=== PATIENT | female | born 1945 | race Caucasian/White ===

== ENCOUNTER → 2016-03-27 | Outpatient (CLI) | payer OTHER ==
[~2016-03-27] MED LIST: ACET-1311 PO; ALBU18002 INH; ALBU1AER9 INH; ATOR-22 PO; ATOR-24 PO; AZEL1POW NAE; CLON0.3D5 TOP; CLON1TAB3 PO; CLOP1TAB15 PO; CRDCD/180 PO; CYAN500T PO; DEXL60CA4 PO; DILT180C9 PO; FLUT0.0529 NAE; FLUT0.15 NAE; GABA-112 PO; GABA-113 PO; GABAPENTIN 600 MG PO; HYDR25TA4 PO; HYDR25TA5 PO; INSDGI SC; INSDGIPEN SC; IPRA0.06 NAE; IPRA1AER2 INH; LISI40TA PO; LPT40 PO; LSN40 PO; MAGN1TAB15 PO; MONT1TAB3 PO; NAPR-201 PO; NEBI10TA2 PO; NRN800 PO; NRT/25 PO; NRT25 PO; NVLGI SC; NVLGI/PEN SC; NYSTCRE11; OMEG10002 PO; PLV75 PO; PRAM0.129 PO; PROM25TA16 PO; ROPI0.25 PO; ROPI0.5T PO; SERT25TA PO; SNG10 PO; SYMIN160 INH; TRAM-10 PO; ULT50 PO; ZLF/50 PO
--- NOTE | 2016-03-27 12:48 | DIAGNOSTIC IMAGING REPORT ---
CHEST 2 VIEWS ROUTINE CLINICAL HISTORY: Cough COMPARISON STUDY: 09/21/2014 FINDINGS: The cardiac and mediastinal contours are normal. There is no evidence of focal pulmonary consolidation. There is no evidence of failure. No pleural effusions are visualized.[ There is tapering of distal right clavicle, likely postsurgical or related to prior trauma. This remain stable. IMPRESSION: No active disease in the chest. Electronically signed by: Abdirashid Benson M.D. 03/27/2016 12:46 PM Dictated Date/Time: 03/27/2016 12:45 PM
== END | disposition home or self-care (01) ==
LOC: C.RAD1850 12:15
PROVIDERS: ATTEND Nurse Practitioner Adult Health
DX: R05 Cough (principal)

== ENCOUNTER → 2016-04-16 | Day surgery (SDC) | payer OTHER ==
[2016-04-08 10:24] VITALS: BMI 34.0
[~2016-04-16] VITALS: Ht 149.9 cm; Wt 75.9 kg
[~2016-04-16] MED LIST changes: +BOTULINUM TOXIN TYPE A 100 UNIT VIAL IM ONE; +LIDOCAINE HCL 2% 2 ML VIAL (20MG/ML) ONE; +PROPOFOL IV EMULSION 10 MG/ML 20 ML VIAL IV ONE; +SODIUM CHLORIDE 0.9% 500ML 500 ML IV ONE
[2016-04-16 08:44] VITALS: Ht 149.9 cm; Wt 75.9 kg
[2016-04-16 08:49] VITALS: TEMP 37.3
--- NOTE | 2016-04-16 08:58 | Endo History and Physical ---
History & Physical Date of Service: Apr 16, 2016. Chief Complaint: DYSPHAGIA Referring Physician: DR. OCAMPO History of Present Illness 70 yo CF who presents for EGD secondary to dysphagia. Past Medical History Diabetes, Glaucoma, Reflux, Cancer, High Cholesterol, Hypertension, CVA/TIA Past Surgical History Hx Cardiac Surgery: No Hx Internal Defibrillator: No Hx Pacemaker: No Hx Abdominal Surgery: Yes (LAP HUDOSN, , TUBAL LIGATION) Hx of Implantable Prosthesis: No Hx Post-Op Nausea and Vomiting: No Hx Cancer Surgery: Yes (TAHBSO) Hx Thoracic Surgery: No Hx Orthopedic: Yes (RT/LEFT RCR) Hx Urinary Tract Surgery: No Social History Smoking Status: Former Smoker Hx Substance Use: No Hx Alcohol Use: No Allergies Coded Allergies: Ceftriaxone (Verified Allergy, Unknown, PARESTHESIA, 04/16/16) ALLSCRIPTS Amoxicillin (Verified Adverse Reaction, Mild, GI DISTRESS, 04/16/16) ALLSCRIPTS Aspirin (Verified Adverse Reaction, Mild, STOMACH MAY GET UPSET, 04/16/16) Clavulanic Acid (Verified Adverse Reaction, Mild, GI DISTRESS, 04/16/16) ALLSCRIPTS Codeine (Verified Adverse Reaction, Mild, INTOLERANCE, 04/08/16) Uncoded Allergies: STERIODS (Allergy, Severe, RIGHT SIDED PARALYSIS, 07/27/12) Current Medications Reported Home Medications Medications Dose Route/Sig Max Daily Dose Days Date Category Dose Instructions Novolog (Insulin Aspart) Inj 5 Units SC TID 10/18/14 Reported Promethazine HCl 25 Mg Tab 25 Mg PO DAILY PRN 06/25/14 Reported Ipratropium [place] (Ipratropium [place] (Nasal)) 0.06 % Spr 2 Sprays REFUGIO UD 06/25/14 Reported USE 2 SPRAYS IN EACH NOSTRIL 2-3 TIMES DAILY ONLY NEEDED Flonase (Fluticasone Propionate (Nasal)) 50 Mcg/Act Spr 1 [place] REFUGIO BID 06/25/14 Reported Klonopin (Clonazepam) 1 Mg Tab 1 Mg PO HS 06/25/14 Reported Bystolic (Nebivolol Hcl) 10 Mg Tab 10 Mg PO QAM 06/25/14 Reported Azelastine HCl (Azelastine HCl (Bulk)) 1 Pow Pow 2 Sprays REFUGIO QPM 06/25/14 Reported Lipitor (Atorvastatin Calcium) 20 Mg Tab 20 Mg PO HS 06/25/14 Reported Clonidine Hcl 0.3 Mg/24 Hr Dis 0.3 Mg TD WK 06/25/14 Reported Lantus (Insulin Glargine) Vial 18 Units SC QPM 02/10/14 Reported Naprosyn (Naproxen) 375 Mg Tab 375 Mg PO Q12 08/30/13 Reported Neurontin (Gabapentin) 300 Mg Cap 600 Mg PO TID 08/30/13 Reported Nortriptyline HCl 25 Mg Cap 25 Mg PO HS 05/19/13 Reported Dexilant (Dexlansoprazole) 60 Mg Cap 60 Mg PO QAM 02/11/13 Reported 1/2 HR PRIOR TO BREAKFAST Plavix (Clopidogrel Bisulfate) 75 Mg Tab 75 Mg PO QAM 10/01/12 Reported Zoloft (Sertraline HCl) 25 Mg Tab 25 Mg PO QAM 05/22/12 Reported Cardizem Cd (Diltiazem Hcl Coated Beads) 180 Mg Cap 180 Mg PO BID 03/13/12 Reported Singulair (Montelukast Sodium) 10 Mg Tab 10 Mg PO HS 01/19/12 Reported Vital Signs Weight (Kilograms): 75.91 Height (Feet): 4 Height (Inches): 11 Date Time Temp Pulse Resp B/P Pulse Ox O2 Delivery O2 Flow Rate FiO2 04/16/16 08:49 37.3 88 18 140/70 95 Room Air Physical Exam General Appearance: WD/WN, no apparent distress Respiratory/Chest: Auscultation: breath sounds normal Cardiovascular: Heart Auscultation: RRR Abdomen: Bowel Sounds: normal Inspection & Palpation: soft, non-distended, no tenderness, guarding & rebound Assessment and Plan Assessment: 70 yo CF who presents for EGD secondary to dysphagia. Plan: Proceed with EGD.
--- NOTE | 2016-04-16 09:29 | Discharge Instructions ---
Endoscopy Patient Instructions Date / Procedure(s) Performed Apr 16, 2016. EGD Allergy Information Coded Allergies: Ceftriaxone (Verified Allergy, Unknown, PARESTHESIA, 04/16/16) ALLSCRIPTS Amoxicillin (Verified Adverse Reaction, Mild, GI DISTRESS, 04/16/16) ALLSCRIPTS Aspirin (Verified Adverse Reaction, Mild, STOMACH MAY GET UPSET, 04/16/16) Clavulanic Acid (Verified Adverse Reaction, Mild, GI DISTRESS, 04/16/16) ALLSCRIPTS Codeine (Verified Adverse Reaction, Mild, INTOLERANCE, 04/08/16) Uncoded Allergies: STERIODS (Allergy, Severe, RIGHT SIDED PARALYSIS, 07/27/12) Discharge Date / Findings Apr 16, 2016. Successful injection of Botox to lower esophageal sphincter Medication Instructions Stopped Medication(s): PATIENT INSTRUCTED TO STOP PLAVIX 6 DAYS PRIOR TO PROCEDURE. OK to resume all medications today as prescribed. Reported Home Medications Medications Dose Route/Sig Max Daily Dose Days Date Category Dose Instructions Novolog (Insulin Aspart) Inj 5 Units SC TID 10/18/14 Reported Promethazine HCl 25 Mg Tab 25 Mg PO DAILY PRN 06/25/14 Reported Ipratropium [place] (Ipratropium [place] (Nasal)) 0.06 % Spr 2 Sprays REFUGIO UD 06/25/14 Reported USE 2 SPRAYS IN EACH NOSTRIL 2-3 TIMES DAILY ONLY NEEDED Flonase (Fluticasone Propionate (Nasal)) 50 Mcg/Act Spr 1 [place] REFUGIO BID 06/25/14 Reported Klonopin (Clonazepam) 1 Mg Tab 1 Mg PO HS 06/25/14 Reported Bystolic (Nebivolol Hcl) 10 Mg Tab 10 Mg PO QAM 06/25/14 Reported Azelastine HCl (Azelastine HCl (Bulk)) 1 Pow Pow 2 Sprays REFUGIO QPM 06/25/14 Reported Lipitor (Atorvastatin Calcium) 20 Mg Tab 20 Mg PO HS 06/25/14 Reported Clonidine Hcl 0.3 Mg/24 Hr Dis 0.3 Mg TD WK 06/25/14 Reported Lantus (Insulin Glargine) Vial 18 Units SC QPM 02/10/14 Reported Naprosyn (Naproxen) 375 Mg Tab 375 Mg PO Q12 08/30/13 Reported Neurontin (Gabapentin) 300 Mg Cap 600 Mg PO TID 08/30/13 Reported Nortriptyline HCl 25 Mg Cap 25 Mg PO HS 05/19/13 Reported Dexilant (Dexlansoprazole) 60 Mg Cap 60 Mg PO QAM 02/11/13 Reported 1/2 HR PRIOR TO BREAKFAST Plavix (Clopidogrel Bisulfate) 75 Mg Tab 75 Mg PO QAM 10/01/12 Reported Zoloft (Sertraline HCl) 25 Mg Tab 25 Mg PO QAM 05/22/12 Reported Cardizem Cd (Diltiazem Hcl Coated Beads) 180 Mg Cap 180 Mg PO BID 03/13/12 Reported Singulair (Montelukast Sodium) 10 Mg Tab 10 Mg PO HS 01/19/12 Reported Provider Instructions Activity Restrictions - No exercising or heavy lifting for 24 hours. - Do not drink alcohol the day of the procedure. - Do not drive a car or operate machinery until the day after the procedure. - Do not make any important decisions or sign important papers in 24 hours after the procedure. Following Day: - Return to full activity which may include returning to work/school. Diet Start your diet with liquids and light foods (jello, soup, juice, toast). Then eat your usual diet if not nauseated. Treatment For Common After Affects For mild abdominal pain, bloating, or excessive gas: - Rest - Eat lightly - Lie on right side Follow-Up Information Follow-up with DR. OCAMPO as scheduled Anesthesia Information What You Should Know You have had a procedure that required some medicine to reduce anxiety and discomfort. This treatment is called moderate sedation. After receiving the treatment, you may be sleepy, but you will be able to breathe on your own. The effects of the treatment may last for several hours. Follow these instructions along with Activity/Diet recommendations noted above: * Do NOT do anything where dizziness or clumsiness would be dangerous. * Rest quietly at home today, then you can be up and about tomorrow. * Have a responsible person stay with you the rest of today. * You may have had an I.V. today. If so, you may take the dressing off later today. Recommendations Call your doctor if: * Trouble breathing * Continuous vomiting for more than 24 hours * Temperature above 101 degrees * Severe abdominal pain or bloating * Pain not relieved by pain medicine ordered * There is increased drainage or redness from any incision * A large amount of rectal bleeding greater than 2-3 tablespoons. (If you had a polyp/s removed or have hemorrhoids, a small amount of blood - from the rectum is to be expected.) * You have any unanswered questions or concerns. IN THE EVENT OF A SERIOUS EMERGENCY, GO TO THE NEAREST EMERGENCY ROOM Your discharge instructions were prepared by provider Christopher Leonardo. Patient Instructions Signature Page Becky Mccabe Patient (or Guardian) Signature/Date: I have read and understand the instructions given to me by my caregivers. Caregiver/RN/Doctor Signature/Date: The above-named patient and/or guardian has received patient instructions on this date. + Original Patient Signature Page (only) stays with chart. Please make copy for patient.
[2016-04-16 10:02] VITALS: BP 140/75; PULSE 71; O2SAT 95
--- NOTE | 2016-04-16 10:53 | GI REPORT ---
Procedure Date: 04/16/2016 9:04 AM Procedure: Upper GI endoscopy Indications: Dysphagia Medicines: Monitored Anesthesia Care Complications: No immediate complications. Estimated Blood Loss: Estimated blood loss: none. Procedure: Pre-Anesthesia Assessment: - Prior to the procedure, a History and Physical was performed, and patient medications and allergies were reviewed. The patient's tolerance of previous anesthesia was also reviewed. The risks and benefits of the procedure and the sedation options and risks were discussed with the patient. All questions were answered, and informed consent was obtained. Prior Anticoagulants: The patient has taken Plavix (clopidogrel), last dose was 7 days prior to procedure. ASA Grade Assessment: III - A patient with severe systemic disease. After reviewing the risks and benefits, the patient was deemed in satisfactory condition to undergo the procedure. After obtaining informed consent, the endoscope was passed under direct vision. Throughout the procedure, the patient's blood pressure, pulse, and oxygen saturations were monitored continuously. The Scope was introduced through the mouth, and advanced to the second part of duodenum. The upper GI endoscopy was accomplished without difficulty. The patient tolerated the procedure well. Findings: No endoscopic abnormality was evident in the esophagus to explain the patient's complaint of dysphagia. Area was successfully injected with 100 units botulinum toxin. The stomach was normal. The examined duodenum was normal. Impression: - No endoscopic esophageal abnormality to explain patient's dysphagia. Injected with botulinum toxin. - Normal stomach. - Normal examined duodenum. - No specimens collected. Recommendation: - Resume previous diet. - Continue present medications. - Repeat the upper endoscopy PRN for retreatment. - Return to primary care physician as previously scheduled. Christopher Leonardo, DO 04/16/2016 9:28:19 AM This report has been signed electronically. Note Initiated On: 04/16/2016 9:04 AM I attest to the content of the Intraoperative Record and orders documented therein, exceptions below
--- NOTE | 2016-04-16 11:12 | Anesthesiology Progress Note ---
Anesthesia Post Op Note Date & Time Apr 16, 2016 at 11:12 Vital Signs Pain Intensity: 0 Vital Signs Past 12 Hours Date Time Temp Pulse Resp B/P Pulse Ox O2 Delivery O2 Flow Rate FiO2 04/16/16 10:02 71 18 140/75 95 Room Air 04/16/16 09:43 72 18 125/79 96 Room Air 04/16/16 09:27 86 18 98/71 95 Room Air 04/16/16 08:49 37.3 88 18 140/70 95 Room Air Notes Mental Status: alert / awake / arousable, participated in evaluation Pt Amnestic to Procedure: Yes Nausea / Vomiting: adequately controlled Pain: adequately controlled Airway Patency, RR, SpO2: stable & adequate BP & HR: stable & adequate Hydration State: stable & adequate Anesthetic Complications: no major complications apparent
== END | disposition home or self-care (01) ==
LOC: C.GI 08:23
PROVIDERS: ATTEND Internal Medicine
DX: R13.10 Dysphagia, unspecified (principal); K21.9 Gastro-esophageal reflux disease without esophagitis; E11.9 Type 2 diabetes mellitus without complications; E78.5 Hyperlipidemia, unspecified; I10 Essential (primary) hypertension; Z87.891 Personal history of nicotine dependence; H40.89 Other specified glaucoma; Z88.8 Allergy status to other drugs, medicaments and biological substances; Z79.4 Long term (current) use of insulin; Z86.73 Personal history of transient ischemic attack (TIA), and cerebral infarction without residual deficits; Z98.890 Other specified postprocedural states; Z98.51 Tubal ligation status; Z88.1 Allergy status to other antibiotic agents; Z88.5 Allergy status to narcotic agent

== ENCOUNTER → 2016-05-29 | Outpatient (CLI) | payer OTHER ==
[~2016-05-29] MED LIST changes: -BOTULINUM TOXIN TYPE A 100 UNIT VIAL IM ONE; -LIDOCAINE HCL 2% 2 ML VIAL (20MG/ML) ONE; +OPTIRAY 320 IV PRN; -PROPOFOL IV EMULSION 10 MG/ML 20 ML VIAL IV ONE; -SODIUM CHLORIDE 0.9% 500ML 500 ML IV ONE
--- NOTE | 2016-05-29 10:28 | DIAGNOSTIC IMAGING REPORT ---
CT ANGIOGRAPHY NECK COMBO CT DOSE: 1072.41 mGy.cm CLINICAL HISTORY: History of stroke symptoms. History of bilateral atheromatous plaque. TECHNIQUE: Helical images were obtained before and after the administration of 92 cc Optiray 320. MIP imaging was performed. NASCET criteria was utilized. COMPARISON STUDY: Carotid Doppler ultrasound dated 08/12/2012 FINDINGS: There is no evidence of vertebral artery stenosis or dissection. There are mild atheromatous changes involving the left proximal internal carotid artery. These resulting in a 25% stenosis. There is extensive atheromatous plaque at the level the right carotid bulb. This results in a 60% stenosis of the right internal carotid artery origin. There are advanced multilevel degenerative changes in the cervical spine with multilevel posterior osteophyte formation. IMPRESSION: 1. Bilateral atheromatous changes 2. 60% stenosis of the right internal carotid artery origin 3. No evidence of vertebral artery stenosis 4. No evidence of hemodynamically significant left internal carotid artery stenosis Electronically signed by: Abdirashid Benson M.D. 05/29/2016 10:26 AM Dictated Date/Time: 05/29/2016 10:15 AM
== END | disposition home or self-care (01) ==
LOC: C.CTS 09:22
PROVIDERS: ATTEND Surgery Vascular Surgery
DX: I65.29 Occlusion and stenosis of unspecified carotid artery (principal)

== ENCOUNTER 2016-10-06 18:27 | Emergency (ER) | payer OTHER ==
[~2016-10-06] VITALS: Ht 149.9 cm; Wt 76.8 kg
[~2016-10-06 18:27] MED LIST changes: -ACET-1311 PO; -ALBU18002 INH; -DILT180C9 PO; -FLUT0.15 NAE; -GABA-113 PO; -HYDR25TA5 PO; -INSDGIPEN SC; -IPRA1AER2 INH; -LPT40 PO; -LSN40 PO; -MAGN1TAB15 PO; -NRN800 PO; -NRT/25 PO; -NVLGI/PEN SC; -OPTIRAY 320 IV PRN; -PLV75 PO; -ROPI0.5T PO; -SNG10 PO; -SYMIN160 INH; -ULT50 PO; -ZLF/50 PO
[2016-10-06 18:31] VITALS: TEMP 36.9; Ht 149.9 cm; Wt 76.8 kg
--- NOTE | 2016-10-06 18:47 | EMERGENCY ROOM VISIT NOTE ---
ED Visit Note First contact with patient: 18:36 CHIEF COMPLAINT: Foot pain HISTORY OF PRESENT ILLNESS: This 71-year-old female patient presents to the emergency department ambulatory complaining of swelling and pain in the right foot and ankle at rest and worse with weight bearing. The patient slipped walking off a curb 3 days ago. The patient rates the pain as moderate and 5/10. The patient has no relief of the pain. The patient is able to walk. The patient denies any change in her neuropathy and constant pins and needle sensation. The patient denies ankle pain. There are no lacerations of the foot. The patient is able to move all of their toes and their ankle without pain. Patient denies previous injury to this foot. REVIEW OF SYSTEMS: GENERAL: A 6 system review of systems was completed with positives and pertinent negatives in the HPI. ALLERGIES: Amoxicillin, aspirin, Rocephin, Augmentin, codeine, steroids MEDICATIONS: See nursing notes PMH: Hypertension, hyperlipidemia, diabetes, stroke SOCIAL HISTORY: The patient lives locally PHYSICAL EXAM: Vital Signs: Reviewed Nurse's notes, vital signs stable. GENERAL : This is a 71-year-old female, in no acute distress, but appears in pain, well- developed, well-nourished. MUSCULOSKELETAL: There is no visual deformity of the right foot. There is no erythema mild ecchymosis. There is no warmth. There is tenderness and swelling over the fifth metatarsal of the right foot. The range of motion of the foot is mildly limited secondary to pain. There is no tenderness over the plantar fascia. Dorsi flexion 5/5 and Plantar flexion 5/5. The skin is intact and there are no lacerations or puncture wounds. Dorsalis pedis pulse 2+. There is mild tenderness to palpation over the right lateral malleolus. There is an area of ecchymosis to the right knee but there is no tenderness, deformity. There is no tenderness to palpation over the proximal tib-fib. Capillary refill less than 2 seconds. EMERGENCY DEPARTMENT COURSE: I examined the patient. An X-ray of the ankle and foot was reviewed by myself and radiology and reveals degenerative change but no obvious fracture or dislocation. The patient was placed in a post-op shoe and already has a walker. The patient was discharged home in good condition. The patient was also seen and examined by who agrees with the assessment and treatment plan. RIGHT ANKLE 3 VIEWS CLINICAL HISTORY: Fall with right ankle pain. FINDINGS: 3 views of the right ankle are obtained. No prior studies are available for comparison at the time of dictation. The skeletal structures are osteopenic. There is no radiographic evidence of right ankle fracture. The ankle mortise is intact. There is a small joint effusion. Soft tissue edema is present around the ankle. Large dorsal and plantar calcaneal enthesophytes are observed. There is calcification of the plantar fascia. IMPRESSION: Soft tissue swelling and joint effusion. No right ankle fracture is seen. RIGHT FOOT 3 VIEWS CLINICAL HISTORY: Fall several days ago with right foot pain. FINDINGS: 3 views of the right foot are obtained. No prior studies are available for comparison at the time of dictation. The skeletal structures are osteopenic. There is no radiographic evidence of fracture. Mild arthritic change is present at the first metatarsophalangeal joint. Large enthesophytes are seen at the base of the fifth metatarsal. Mild spurring is seen along the dorsal aspect of the tarsal bones. There are large dorsal and plantar calcaneal enthesophytes. Calcification is noted along the plantar fascia. Mild dorsal soft tissue swelling is observed. IMPRESSION: 1. No right foot fracture is seen. 2. Osteopenia, arthritic change, and heel spurs as above. I attest that I have personally reviewed the patient's current medication list. Blood pressure screening: The patient was found to have an elevated blood pressure and was referred to their primary care doctor for recheck and further treatment Problem List Medical Problems: (1) Benign hypertension Status: Chronic (2) Cholecystectomy Status: Resolved (3) Chronic obstructive lung disease Status: Chronic (4) Chronic sinusitis Status: Chronic (5) Diabetes Status: Chronic (6) Hiatal hernia Status: Chronic (7) Hyperlipidemia Status: Chronic (8) Leukocytosis Status: Chronic (9) Neuropathy of right lower extremity Status: Chronic (10) Rheumatoid arthritis Status: Chronic (11) Spinal stenosis in cervical region Status: Chronic Current/Historical Medications Scheduled Atorvastatin (Atorvastatin Calcium), 40 MG PO DAILY Budesonide/Formoterol Fumarate (Symbicort 160/4.5 Inhaler ), 2 PUFFS INH BID Clonazepam (Klonopin), 1 MG PO HS Clonidine Hcl (Clonidine Hcl), 0.3 MG TOP WK Clopidogrel Bisulfate (Clopidogrel), 75 MG PO DAILY Cyanocobalamin (Vitamin B-12), 500 MCG PO DAILY Dexlansoprazole (Dexilant), 60 MG PO BID Diltiazem Hcl (Tiazac), 180 MG PO BID Fluticasone Propionate (Nasal) (Flonase Allergy Relief), 1 SPRAY REFUGIO DAILY Gabapentin (Gabapentin), 800 MG PO BID Hydrochlorothiazide (Hydrochlorothiazide), 25 MG PO DAILY Insulin Aspart (Novolog Flexpen), 1 DOSE SC TID Insulin Glargine (Lantus Solostar), 16 UNITS SC HS Lisinopril (Lisinopril), 40 MG PO DAILY Magnesium Chloride-Calcium Car (Slow Magnesium Chloride/ 70-117 mg), 1 TAB PO BID Montelukast Sod (Montelukast Sodium), 15 MG PO HS Nebivolol Hcl (Bystolic), 10 MG PO QAM Nortriptyline Hcl (Pamelor), 25 MG PO HS [place]-3 Fatty Acids (Fish Oil), 1,000 MG PO BID Ropinirole Hydrochloride (Requip), 0.5 MG PO QPM Sertraline HCl (Sertraline HCl), 75 MG PO DAILY Scheduled PRN Acetaminophen (Tylenol), 325 MG PO UD PRN for Pain or Fever Albuterol Sulfate (Proair Respiclick), 2 PUFFS INH Q4-6HRS PRN for Shortness of Breath Ipratropium [place] (Nasal) (Ipratropium [place]), 2 SPRAYS REFUGIO UD PRN for Rhinitis Ipratropium-Albuterol (Combivent Respimat), 2 PUFFS INH TID PRN for Cough Promethazine HCl (Promethazine HCl), 25 MG PO DAILY PRN for Nausea Tramadol HCl (Tramadol HCl), 50 MG PO QID PRN for Pain Allergies Coded Allergies: Ceftriaxone (Verified Allergy, Unknown, PARESTHESIA, 04/16/16) ALLSCRIPTS Amoxicillin (Verified Adverse Reaction, Mild, GI DISTRESS, 04/16/16) ALLSCRIPTS Aspirin (Verified Adverse Reaction, Mild, STOMACH MAY GET UPSET, 04/16/16) Clavulanic Acid (Verified Adverse Reaction, Mild, GI DISTRESS, 04/16/16) ALLSCRIPTS Codeine (Verified Adverse Reaction, Mild, INTOLERANCE, 04/08/16) Uncoded Allergies: STERIODS (Allergy, Severe, RIGHT SIDED PARALYSIS, 07/27/12) Vital Signs Date Time Temp Pulse Resp B/P (MAP) Pulse Ox O2 Delivery O2 Flow Rate FiO2 10/06/16 20:47 72 18 173/106 95 10/06/16 18:31 36.9 81 17 184/87 97 Room Air Departure Information Impression Primary Impression: Foot sprain Dispostion Home / Self-Care Condition GOOD Referrals Maribeth Estrada DO (PCP) David Holcomb M.D. Patient Instructions ED Sprain Foot, [facility] Additional Instructions Ice and elevation for 24-48 hrs. Tylenol according to package instructions as needed for pain. Use your walker. With a postop shoe for the next 5-7 days or until the pain subsides. Follow-up with orthopedics in 5-7 days if symptoms persist. Contact them to schedule a follow-up appointment. Return with any worsening symptoms. Problem Qualifiers Primary Impression: Foot sprain Encounter type: initial encounter
--- NOTE | 2016-10-06 19:31 | DIAGNOSTIC IMAGING REPORT ---
RIGHT ANKLE 3 VIEWS CLINICAL HISTORY: Fall with right ankle pain. FINDINGS: 3 views of the right ankle are obtained. No prior studies are available for comparison at the time of dictation. The skeletal structures are osteopenic. There is no radiographic evidence of right ankle fracture. The ankle mortise is intact. There is a small joint effusion. Soft tissue edema is present around the ankle. Large dorsal and plantar calcaneal enthesophytes are observed. There is calcification of the plantar fascia. IMPRESSION: Soft tissue swelling and joint effusion. No right ankle fracture is seen. Electronically signed by: Sukhdeep Mary M.D. 10/06/2016 7:29 PM Dictated Date/Time: 10/06/2016 7:28 PM
--- NOTE | 2016-10-06 19:32 | DIAGNOSTIC IMAGING REPORT ---
RIGHT FOOT 3 VIEWS CLINICAL HISTORY: Fall several days ago with right foot pain. FINDINGS: 3 views of the right foot are obtained. No prior studies are available for comparison at the time of dictation. The skeletal structures are osteopenic. There is no radiographic evidence of fracture. Mild arthritic change is present at the first metatarsophalangeal joint. Large enthesophytes are seen at the base of the fifth metatarsal. Mild spurring is seen along the dorsal aspect of the tarsal bones. There are large dorsal and plantar calcaneal enthesophytes. Calcification is noted along the plantar fascia. Mild dorsal soft tissue swelling is observed. IMPRESSION: 1. No right foot fracture is seen. 2. Osteopenia, arthritic change, and heel spurs as above. Electronically signed by: Sukhdeep Mary M.D. 10/06/2016 7:31 PM Dictated Date/Time: 10/06/2016 7:30 PM
[2016-10-06] MEDS ORDERED: NRN800 PO (19:35)
[2016-10-06] MEDS ORDERED: SNG10 PO (19:35)
[2016-10-06] MEDS ORDERED: ZLF/50 PO (19:35)
[2016-10-06] MEDS ORDERED: PLV75 PO (19:35)
[2016-10-06] MEDS ORDERED: ROPI0.5T PO (19:35)
[2016-10-06] MEDS ORDERED: LPT40 PO (19:35)
[2016-10-06] MEDS ORDERED: LSN40 PO (19:35)
[2016-10-06] MEDS ORDERED: NRT/25 PO (19:35)
[2016-10-06] MEDS ORDERED: DILT180C9 PO (19:35)
[2016-10-06] MEDS ORDERED: INSDGIPEN SC (19:35)
[2016-10-06] MEDS ORDERED: NVLGI/PEN SC (19:35)
[2016-10-06] MEDS ORDERED: HYDR25TA5 PO (19:35)
[2016-10-06] MEDS ORDERED: FLUT0.15 NAE (19:41)
[2016-10-06] MEDS ORDERED: ULT50 PO (19:41)
[2016-10-06] MEDS ORDERED: ALBU18002 INH (19:41)
[2016-10-06] MEDS ORDERED: ACET-1311 PO (19:46)
[2016-10-06] MEDS ORDERED: IPRA1AER2 INH (19:46)
[2016-10-06] MEDS ORDERED: MAGN1TAB15 PO (19:46)
[2016-10-06] MEDS ORDERED: SYMIN160 INH (19:46)
--- NOTE | 2016-10-06 20:09 | EMERGENCY ROOM VISIT NOTE ---
ED Visit Note First contact with patient: 18:36 I have personally evaluated and examined this patient. I agree with assessment and plan of Zoey Butts PA-C.
[2016-10-06 20:47] VITALS: BP 173/106; PULSE 72; O2SAT 95
== END 2016-10-06 20:49 | disposition home or self-care (01) ==
LOC: C.EDB 18:28 → C.EDD 20:49
DX: S93.601A Unspecified sprain of right foot, initial encounter (principal); W18.43XA Slipping, tripping and stumbling without falling due to stepping from one level to another, initial encounter; S80.01XA Contusion of right knee, initial encounter; I10 Essential (primary) hypertension; E78.5 Hyperlipidemia, unspecified; E11.9 Type 2 diabetes mellitus without complications; Z86.73 Personal history of transient ischemic attack (TIA), and cerebral infarction without residual deficits; J44.9 Chronic obstructive pulmonary disease, unspecified; J32.9 Chronic sinusitis, unspecified; K44.9 Diaphragmatic hernia without obstruction or gangrene; D72.829 Elevated white blood cell count, unspecified; G57.91 Unspecified mononeuropathy of right lower limb; M06.9 Rheumatoid arthritis, unspecified; M48.02 Spinal stenosis, cervical region; Z79.4 Long term (current) use of insulin

== ENCOUNTER → 2017-02-25 | Outpatient (CLI) | payer OTHER ==
[~2017-02-25] MED LIST changes: +ACET-1311 PO; +ALBU18002 INH; -ALBU1AER9 INH; -ATOR-22 PO; -ATOR-24 PO; -AZEL1POW NAE; -CLON1TAB3 PO; +CLON1TAB4 PO; -CLOP1TAB15 PO; -CRDCD/180 PO; +DILT180C9 PO; +FLAX100024; -FLUT0.0529 NAE; +FLUT0.15 NAE; -GABA-112 PO; -GABAPENTIN 600 MG PO; -HYDR25TA4 PO; +HYDR25TA5 PO; -INSDGI SC; +INSDGIPEN SC; +IPRA1AER2 INH; -LISI40TA PO; +LISI40TA3 PO; +LPT40 PO; +MAGN1TAB15 PO; -MONT1TAB3 PO; -NAPR-201 PO; +NRN800 PO; +NRT/25 PO; -NRT25 PO; -NVLGI SC; +NVLGI/PEN SC; -NYSTCRE11; +PLV75 PO; -PRAM0.129 PO; -ROPI0.25 PO; +ROPI0.5T PO; -SERT25TA PO; +SNG10 PO; +SYMIN160 INH; -TRAM-10 PO; +ULT50 PO; +ZLF/50 PO
--- NOTE | 2017-02-26 14:36 | MAMMOGRAPHY REPORT ---
BILATERAL DIGITAL SCREENING MAMMOGRAM TOMOSYNTHESIS WITH CAD: 02/25/2017 CLINICAL HISTORY: Routine screening. TECHNIQUE: Breast tomosynthesis in addition to standard 2D mammography was performed. Current study was also evaluated with a Computer Aided Detection (CAD) system. COMPARISON: Comparison is made to exams dated: 02/06/2016 mammogram, 02/16/2014 mammogram, 3 mammogram, 02/13/2012 mammogram, 02/10/2011 mammogram, and 02/08/2010 mammogram - [facility]. BREAST COMPOSITION: There are scattered areas of fibroglandular density in both breasts. FINDINGS: No suspicious masses, calcifications, or areas of architectural distortion are noted in ei ther breast. There has been no significant interval change compared to prior exams. There are stable post surgical changes in the right breast from prior surgical excision. Bilateral benign-appearing calcifications are not significantly changed. Bilateral asymmetries are stable. IMPRESSION: ACR BI-RADS CATEGORY 2: BENIGN There is no mammographic evidence of malignancy. A 1 year screening mammogram is recommended. The pa tient will receive written notification of the results. Approximately 10% of breast cancers are not detected with mammography. A negative mammographic report should not delay biopsy if a clinically suggestive mass is present. Dannielle Fall M.D. ah/:02/25/2017 15:55:08 Bass Guitar Teacher: Lisandra WELLS(R)(M), [facility] letter sent: Normal 1/2 BI-RADS Code: ACR BI-RADS Category 2: Benign
== END | disposition home or self-care (01) ==
LOC: C.MAMM 10:24
PROVIDERS: ATTEND Nurse Practitioner
DX: Z12.31 Encounter for screening mammogram for malignant neoplasm of breast (principal)

== ENCOUNTER → 2017-04-13 | Day surgery (SDC) | payer OTHER ==
[~2017-04-13] VITALS: Ht 149.9 cm; Wt 79.1 kg
[~2017-04-13] MED LIST changes: +BOTULINUM TOXIN TYPE A 100 UNIT VIAL IM ONE; +CLON1TAB3 PO; -CLON1TAB4 PO; -FLAX100024; +LIDOCAINE HCL 2% 2 ML VIAL (20MG/ML) ONE; -LISI40TA3 PO; +LSN40 PO; +PROPOFOL IV EMULSION 10 MG/ML 20 ML VIAL IV ONE
[2017-04-13 13:32] VITALS: Ht 149.9 cm; Wt 79.1 kg
--- NOTE | 2017-04-13 13:33 | Endo History and Physical ---
History & Physical Date of Service: Apr 13, 2017. Chief Complaint: Dysphagia Referring Physician: Lewis Villa History of Present Illness 71 yo CF who presents for EGD secondary to dysphagia. Past Medical History Diabetes, Glaucoma, Reflux, Cancer, High Cholesterol, Hypertension, CVA/TIA Past Surgical History Hx Cardiac Surgery: No Hx Internal Defibrillator: No Hx Pacemaker: No Hx Abdominal Surgery: Yes (LAP [place]DS[place], , TUBAL LIGATION) Hx Post-Op Nausea and Vomiting: No Hx Cancer Surgery: Yes (TAHBSO) Hx Thoracic Surgery: No Hx Orthopedic: Yes (RT/LEFT RCR) Hx Urinary Tract Surgery: No Social History Smoking Status: Former Smoker Hx Substance Use: No Hx Alcohol Use: No Allergies Coded Allergies: Ceftriaxone (Verified Allergy, Unknown, PARESTHESIA, 04/16/16) ALLSCRIPTS Amoxicillin (Verified Adverse Reaction, Mild, GI DISTRESS, 04/16/16) ALLSCRIPTS Aspirin (Verified Adverse Reaction, Mild, STOMACH MAY GET UPSET, 04/16/16) Clavulanic Acid (Verified Adverse Reaction, Mild, GI DISTRESS, 04/16/16) ALLSCRIPTS Codeine (Verified Adverse Reaction, Mild, INTOLERANCE, 04/08/16) Uncoded Allergies: STERIODS (Allergy, Severe, RIGHT SIDED PARALYSIS, 07/27/12) Current Medications Reported Home Medications Medications Dose Route/Sig Max Daily Dose Days Date Category Dose Instructions Tylenol (Acetaminophen) 325 Mg Tab 325 Mg PO UD PRN 10/06/16 Reported TAKE PER PACKAGE DIRECTIONS Symbicort 160/4.5 Inhaler (Budesonide/Formoterol Fumarate) Aero 2 Puffs INH BID 10/06/16 Reported RINSE MOUTH AFTER USE Combivent Respimat (Ipratropium-Albuterol) 1 Aer Aer 2 Puffs INH TID PRN 10/06/16 Reported Slow Magnesium Chloride/ 70-117 mg (Magnesium Chloride-Calcium Car) 1 Tab Tab 1 Tab PO BID 10/06/16 Reported Tramadol HCl 50 Mg Tab 50 Mg PO QID PRN 10/06/16 Reported Flonase Allergy Relief (Fluticasone Propionate (Nasal)) 50 Mcg/Act Spr 1 [place] REFUGIO DAILY 10/06/16 Reported Proair Respiclick (Albuterol Sulfate) 108 Mcg/Act Aer 2 Puffs INH Q4-6HRS PRN 10/06/16 Reported Clopidogrel (Clopidogrel Bisulfate) 75 Mg Tab 75 Mg PO DAILY 10/06/16 Reported Hydrochlorothiazide 25 Mg Tab 25 Mg PO DAILY 10/06/16 Reported Tiazac (Diltiazem Hcl) 180 Mg Cap 180 Mg PO BID 10/06/16 Reported Atorvastatin Calcium (Atorvastatin) 40 Mg Tab 40 Mg PO DAILY 10/06/16 Reported Pamelor (Nortriptyline Hcl) 25 Mg Cap 25 Mg PO HS 10/06/16 Reported Lantus Solostar (Insulin Glargine) 100 Unit/Ml Inj 16 Units SC HS 10/06/16 Reported Sertraline HCl 50 Mg Tab 75 Mg PO DAILY 10/06/16 Reported Novolog Flexpen (Insulin Aspart) 100 Units/Ml Inj 1 Dose SC TID 10/06/16 Reported COVERGE DIRECTED BY SLIDING SCALE Montelukast Sodium (Montelukast Sod) 10 Mg Tab 15 Mg PO HS 10/06/16 Reported Requip (Ropinirole Hydrochloride) 0.5 Mg Tab 0.5 Mg PO QPM 10/06/16 Reported TAKE THIS MEDICATION TWO HOURS BEFORE BEDTIME Lisinopril 40 Mg Tab 40 Mg PO DAILY 10/06/16 Reported Gabapentin 800 Mg Tab 800 Mg PO BID 10/06/16 Reported TAKE THIS MEDICATION EVERY MORNING AND IN THE AFTERNOON Fish Oil ([place]-3 Fatty Acids) 1,000 Mg Cap 1,000 Mg PO BID 06/06/16 Reported Vitamin B-12 (Cyanocobalamin) 500 Mcg Tab 500 Mcg PO DAILY 06/06/16 Reported Promethazine HCl 25 Mg Tab 25 Mg PO DAILY PRN 06/25/14 Reported Ipratropium [place] (Ipratropium [place] (Nasal)) 0.06 % Spr 2 Sprays REFUGIO UD PRN 06/25/14 Reported USE 2 SPRAYS IN EACH NOSTRIL 2-3 TIMES DAILY ONLY NEEDED Klonopin (Clonazepam) 1 Mg Tab 1 Mg PO HS 06/25/14 Reported Bystolic (Nebivolol Hcl) 10 Mg Tab 10 Mg PO QAM 06/25/14 Reported Clonidine Hcl 0.3 Mg/24 Hr Dis 0.3 Mg TOP WK 06/25/14 Reported Dexilant (Dexlansoprazole) 60 Mg Cap 60 Mg PO BID 02/11/13 Reported TAKE THIS MEDICATION 30 MINUTES BEFORE BREAKFAST AND EVENING MEAL Physical Exam General Appearance: WD/WN, no apparent distress Respiratory/Chest: Auscultation: breath sounds normal Cardiovascular: Heart Auscultation: RRR Abdomen: Bowel Sounds: normal Inspection & Palpation: soft, non-distended, no tenderness, guarding & rebound Assessment and Plan Assessment: 71 yo CF who presents for EGD secondary to dysphagia. Plan: Proceed with EGD.
--- NOTE | 2017-04-13 14:27 | GI REPORT ---
Procedure Date: 04/13/2017 2:05 PM Procedure: Upper GI endoscopy Indications: Dysphagia Medicines: Monitored Anesthesia Care Complications: No immediate complications. Estimated Blood Loss: Estimated blood loss: none. Procedure: Pre-Anesthesia Assessment: - Prior to the procedure, a History and Physical was performed, and patient medications and allergies were reviewed. The patient's tolerance of previous anesthesia was also reviewed. The risks and benefits of the procedure and the sedation options and risks were discussed with the patient. All questions were answered, and informed consent was obtained. Prior Anticoagulants: The patient last took Plavix (clopidogrel) 1 day prior to the procedure and last took aspirin on the day of the procedure. ASA Grade Assessment: III - A patient with severe systemic disease. After reviewing the risks and benefits, the patient was deemed in satisfactory condition to undergo the procedure. After obtaining informed consent, the endoscope was passed under direct vision. Throughout the procedure, the patient's blood pressure, pulse, and oxygen saturations were monitored continuously. The On-site loaner was introduced through the mouth, and advanced to the second part of duodenum. The upper GI endoscopy was accomplished without difficulty. The patient tolerated the procedure well. Findings: No endoscopic abnormality was evident in the esophagus to explain the patient's complaint of dysphagia. Area was successfully injected with 100 units botulinum toxin. Localized mild inflammation characterized by erythema was found in the gastric antrum. The examined duodenum was normal. Impression: - No endoscopic esophageal abnormality to explain patient's dysphagia. Injected with botulinum toxin. - Gastritis. - Normal examined duodenum. - No specimens collected. Recommendation: - Resume previous diet. - Continue present medications. - Repeat upper endoscopy PRN for retreatment. - Return to primary care physician as previously scheduled. Christopher Leonardo, DO 04/13/2017 2:26:22 PM This report has been signed electronically. Note Initiated On: 04/13/2017 2:05 PM I attest to the content of the Intraoperative Record and orders documented therein, exceptions below
--- NOTE | 2017-04-13 14:27 | Discharge Instructions ---
Endoscopy Patient Instructions Date / Procedure(s) Performed Apr 13, 2017. EGD Allergy Information Coded Allergies: Ceftriaxone (Verified Allergy, Unknown, PARESTHESIA, 04/16/16) ALLSCRIPTS Amoxicillin (Verified Adverse Reaction, Mild, GI DISTRESS, 04/16/16) ALLSCRIPTS Aspirin (Verified Adverse Reaction, Mild, STOMACH MAY GET UPSET, 04/16/16) Clavulanic Acid (Verified Adverse Reaction, Mild, GI DISTRESS, 04/16/16) ALLSCRIPTS Codeine (Verified Adverse Reaction, Mild, INTOLERANCE, 04/08/16) Uncoded Allergies: STERIODS (Allergy, Severe, RIGHT SIDED PARALYSIS, 07/27/12) Discharge Date / Findings Apr 13, 2017. Successful Botox injection to distal esophagus Medication Instructions Stopped Medication(s): PLAVIX 04/12/17 OK to resume all medications today as prescribed Reported Home Medications Medications Dose Route/Sig Max Daily Dose Days Date Category Dose Instructions Symbicort 160/4.5 Inhaler (Budesonide/Formoterol Fumarate) Aero 2 Puffs INH BID 10/06/16 Reported RINSE MOUTH AFTER USE Combivent Respimat (Ipratropium-Albuterol) 1 Aer Aer 2 Puffs INH TID PRN 10/06/16 Reported Slow Magnesium Chloride/ 70-117 mg (Magnesium Chloride-Calcium Car) 1 Tab Tab 1 Tab PO BID 10/06/16 Reported Tramadol HCl 50 Mg Tab 50 Mg PO QID PRN 10/06/16 Reported Flonase Allergy Relief (Fluticasone Propionate (Nasal)) 50 Mcg/Act Spr 1 [place] REFUGIO DAILY 10/06/16 Reported Proair Respiclick (Albuterol Sulfate) 108 Mcg/Act Aer 2 Puffs INH Q4-6HRS PRN 10/06/16 Reported Clopidogrel (Clopidogrel Bisulfate) 75 Mg Tab 75 Mg PO DAILY 10/06/16 Reported Hydrochlorothiazide 25 Mg Tab 25 Mg PO DAILY 10/06/16 Reported Tiazac (Diltiazem Hcl) 180 Mg Cap 180 Mg PO BID 10/06/16 Reported Lipitor (Atorvastatin Calcium) 40 Mg Tab 40 Mg PO DAILY 10/06/16 Reported Pamelor (Nortriptyline Hcl) 25 Mg Cap 25 Mg PO HS 10/06/16 Reported Lantus Solostar (Insulin Glargine) 100 Unit/Ml Inj 16 Units SC HS 10/06/16 Reported Sertraline HCl 50 Mg Tab 75 Mg PO DAILY 10/06/16 Reported Novolog Flexpen (Insulin Aspart) 100 Units/Ml Inj 1 Dose SC TID 10/06/16 Reported COVERGE DIRECTED BY SLIDING SCALE Montelukast Sodium (Montelukast Sod) 10 Mg Tab 15 Mg PO HS 10/06/16 Reported Requip (Ropinirole Hydrochloride) 0.5 Mg Tab 0.5 Mg PO QPM 10/06/16 Reported TAKE THIS MEDICATION TWO HOURS BEFORE BEDTIME Lisinopril 40 Mg Tab 40 Mg PO DAILY 10/06/16 Reported Gabapentin 800 Mg Tab 800 Mg PO BID 10/06/16 Reported TAKE THIS MEDICATION EVERY MORNING AND IN THE AFTERNOON Fish Oil ([place]-3 Fatty Acids) 1,000 Mg Cap 1,000 Mg PO BID 06/06/16 Reported Vitamin B-12 (Cyanocobalamin) 500 Mcg Tab 500 Mcg PO DAILY 06/06/16 Reported Promethazine HCl 25 Mg Tab 25 Mg PO DAILY PRN 06/25/14 Reported Ipratropium [place] (Ipratropium [place] (Nasal)) 0.06 % Spr 2 Sprays REFUGIO UD PRN 06/25/14 Reported USE 2 SPRAYS IN EACH NOSTRIL 2-3 TIMES DAILY ONLY NEEDED Klonopin (Clonazepam) 1 Mg Tab 1 Mg PO HS 06/25/14 Reported Bystolic (Nebivolol Hcl) 10 Mg Tab 10 Mg PO QAM 06/25/14 Reported Clonidine Hcl 0.3 Mg/24 Hr Dis 0.3 Mg TOP WK 06/25/14 Reported Dexilant (Dexlansoprazole) 60 Mg Cap 60 Mg PO BID 02/11/13 Reported TAKE THIS MEDICATION 30 MINUTES BEFORE BREAKFAST AND EVENING MEAL Provider Instructions Activity Restrictions - No exercising or heavy lifting for 24 hours. - Do not drink alcohol the day of the procedure. - Do not drive a car or operate machinery until the day after the procedure. - Do not make any important decisions or sign important papers in 24 hours after the procedure. Following Day: - Return to full activity which may include returning to work/school. Diet Start your diet with liquids and light foods (jello, soup, juice, toast). Then eat your usual diet if not nauseated. Treatment For Common After Affects For mild abdominal pain, bloating, or excessive gas: - Rest - Eat lightly - Lie on right side Follow-Up Information Follow-up with JOSE BOYKIN as scheduled Anesthesia Information What You Should Know You have had a procedure that required some medicine to reduce anxiety and discomfort. This treatment is called moderate sedation. After receiving the treatment, you may be sleepy, but you will be able to breathe on your own. The effects of the treatment may last for several hours. Follow these instructions along with Activity/Diet recommendations noted above: * Do NOT do anything where dizziness or clumsiness would be dangerous. * Rest quietly at home today, then you can be up and about tomorrow. * Have a responsible person stay with you the rest of today. * You may have had an I.V. today. If so, you may take the dressing off later today. Recommendations Call your doctor if: * Trouble breathing * Continuous vomiting for more than 24 hours * Temperature above 101 degrees * Severe abdominal pain or bloating * Pain not relieved by pain medicine ordered * There is increased drainage or redness from any incision * A large amount of rectal bleeding greater than 2-3 tablespoons. (If you had a polyp/s removed or have hemorrhoids, a small amount of blood - from the rectum is to be expected.) * You have any unanswered questions or concerns. IN THE EVENT OF A SERIOUS EMERGENCY, GO TO THE NEAREST EMERGENCY ROOM Your discharge instructions were prepared by provider Christopher Leonardo. Patient Instructions Signature Page Becky Mccabe Patient (or Guardian) Signature/Date: I have read and understand the instructions given to me by my caregivers. Caregiver/RN/Doctor Signature/Date: The above-named patient and/or guardian has received patient instructions on this date. + Original Patient Signature Page (only) stays with chart. Please make copy for patient.
--- NOTE | 2017-04-13 14:38 | Anesthesiology Progress Note ---
Anesthesia Post Op Note Date & Time Apr 13, 2017 at 14:38 Vital Signs Pain Intensity: 0 Vital Signs Past 12 Hours Date Time Temp Pulse Resp B/P (MAP) Pulse Ox O2 Delivery O2 Flow Rate FiO2 04/13/17 14:26 36.8 75 20 134/79 (97) 92 Room Air 04/13/17 14:00 37.0 76 20 150/89 (109) 92 Room Air Notes Mental Status: alert / awake / arousable, participated in evaluation Pt Amnestic to Procedure: Yes Nausea / Vomiting: adequately controlled Pain: adequately controlled Airway Patency, RR, SpO2: stable & adequate BP & HR: stable & adequate Hydration State: stable & adequate Anesthetic Complications: no major complications apparent
[2017-04-13 14:56] VITALS: BP 131/66; PULSE 69; O2SAT 95
== END | disposition home or self-care (01) ==
LOC: C.GI 13:08
PROVIDERS: ATTEND Internal Medicine
DX: R13.10 Dysphagia, unspecified (principal); E11.9 Type 2 diabetes mellitus without complications; K21.9 Gastro-esophageal reflux disease without esophagitis; E78.00 Pure hypercholesterolemia, unspecified; I10 Essential (primary) hypertension; Z86.73 Personal history of transient ischemic attack (TIA), and cerebral infarction without residual deficits; Z87.891 Personal history of nicotine dependence; Z88.1 Allergy status to other antibiotic agents; Z88.6 Allergy status to analgesic agent; Z88.8 Allergy status to other drugs, medicaments and biological substances; Z79.899 Other long term (current) drug therapy; Z79.4 Long term (current) use of insulin

== ENCOUNTER → 2017-06-15 | Outpatient (CLI) | payer OTHER ==
[~2017-06-15] MED LIST changes: -ACET-1311 PO; -BOTULINUM TOXIN TYPE A 100 UNIT VIAL IM ONE; -LIDOCAINE HCL 2% 2 ML VIAL (20MG/ML) ONE; -PROPOFOL IV EMULSION 10 MG/ML 20 ML VIAL IV ONE
--- NOTE | 2017-06-15 10:22 | DIAGNOSTIC IMAGING REPORT ---
ABDOMEN ULTRASOUND FOR HERNIA CLINICAL HISTORY: ABD MASS TO CHECK FOR HERNIA COMPARISON STUDY: Abdomen and pelvis CT 03/18/2013. FINDINGS: Real-time sonographic imaging of the abdominal wall was performed. No hernia identified. No masses or fluid collection within the abdominal wall at the patient's area of interest. IMPRESSION: No evidence for an abdominal hernia. Electronically signed by: Saurabh Cole M.D. 06/15/2017 10:20 AM Dictated Date/Time: 06/15/2017 10:18 AM
== END | disposition home or self-care (01) ==
LOC: C.ULTR 09:29
PROVIDERS: ATTEND Physician Assistant
DX: R10.9 Unspecified abdominal pain (principal); R19.00 Intra-abdominal and pelvic swelling, mass and lump, unspecified site

== ENCOUNTER → 2017-07-03 | Outpatient (CLI) | payer OTHER ==
[~2017-07-03] MED LIST changes: +OPTIRAY 320 IV PRN
--- NOTE | 2017-07-03 09:36 | DIAGNOSTIC IMAGING REPORT ---
ABDOMEN AND PELVIS CT WITH IV AND ORAL CONTRAST CT DOSE: 1018.70 mGy.cm HISTORY: Midabdominal pain. R19.00 Abdominal mass [id number] TECHNIQUE: Multiaxial CT images of the abdomen and pelvis were performed following the use of intravenous and oral contrast. A dose lowering technique was utilized adhering to the principles of ALARA. COMPARISON STUDY: Abdomen and pelvis CT 03/18/2013. FINDINGS: The lung bases are clear. No pneumoperitoneum. No pneumatosis. No suspicious lytic or blastic osseous lesions. There is a small diverticulum at the second portion of the duodenum. Cholecystectomy. The liver, spleen, left adrenal gland, and pancreas appear unremarkable. Bilateral peripelvic renal cysts are again noted. No hydronephrosis. Normal bladder. The uterus is surgically absent. A few small left renal hypodense lesions. The largest in the left kidney measures 1.6 cm. This likely represents a cyst. No retroperitoneal lymphadenopathy. Moderate calcified plaque within the normal caliber abdominal aorta. Sigmoid diverticulosis. Questionable thickening of the sigmoid colon likely represents a combination of decompression and muscular hypertrophy. No definite pericolonic fat stranding at this time to suggest an acute process. Therefore, no definite bowel wall thickening or obstruction. Normal appendix. Moderate to large amount of well-formed stool within the transverse colon. IMPRESSION: 1. No definite bowel wall thickening or obstruction. 2. Questionable thickening of the sigmoid colon is likely due to underdistention and muscular hypertrophy from the colonic diverticulosis. However, if the patient develops worsening lower abdominal pain then consider follow-up to exclude the less likely possibility of an early diverticulitis/colitis. 3. Moderate to large amount well-formed stool within the transverse colon. 4. Normal appendix. Electronically signed by: Saurabh Cole M.D. 07/03/2017 9:34 AM Dictated Date/Time: 07/03/2017 9:24 AM
== END | disposition home or self-care (01) ==
LOC: C.CTS 06-24 11:28
PROVIDERS: ATTEND Physician Assistant
DX: R19.00 Intra-abdominal and pelvic swelling, mass and lump, unspecified site (principal)

== ENCOUNTER 2021-04-08 18:12 | Inpatient (IN) ==
[2021-04-08] MEDS ORDERED: ALBUT/IPRATROP 3MG/0.5MG NEB 3 ML VIAL NEB STA (18:36)
[2021-04-08 19:14] LABS: Basophils # (auto) 0.05 K/uL (0-0.2); Basophils % (auto) 0.4 %; Eosinophils # (auto) 0.19 K/uL (0-0.5); Eosinophils % (auto) 1.6 %; Hematocrit (blood only) 44.1 % (37-47); Hemoglobin 14.6 g/dL (12.0-16.0); Immature Granulocytes # (auto) 0.04 K/uL (0.00-0.02); Immature Granulocytes % (auto) 0.3 %; Lymphocytes # (auto) 4.84 K/uL (1.2-3.4); Mean Corpuscular Hemoglobin 30.4 pg (25-34); Mean Corpuscular Hgb Conc 33.1 g/dL (32-36); Mean Corpuscular Volume 91.7 fL (80-100); Mean Platelet Volume 11.1 fL (7.4-10.4); Monocytes # (auto) 0.92 K/uL (0.11-0.59); Monocytes % (auto) 7.6 %; Neutrophils # (auto) 6.05 K/uL (1.4-6.5); Neutrophils % (auto) 50.1 %; Platelet Count 256 K/uL (130-400); RDW Coefficient of Variation 14.3 % (11.5-14.5); RDW Standard Deviation 48.2 fL (36.4-46.3); Red Blood Count 4.81 M/uL (4.2-5.4); White Blood Count 12.09 K/uL (4.8-10.8)
[2021-04-08 19:16] LABS: pH VBG 7.45 (7.36-7.41)
[2021-04-08 19:28] LABS: Partial Thromboplastin Ratio 0.9; Partial Thromboplastin Time 23.3 Seconds (21.0-31.0); Prothrombin Time 10.2 Seconds (9.0-12.0)
[2021-04-08 19:36] LABS: Troponin I < 0.03 ng/ml (0-0.04)
--- NOTE | 2021-04-08 19:52 | XRay Report ---
XR chest 1V portable HISTORY: Shortness of breath. COMPARISON: Chest 08/09/2020. FINDINGS: No pneumothorax. No pleural effusions. There are low lung volumes. The heart remains mildly enlarged. No focal lung consolidations to suggest pneumonia. No evidence for pulmonary edema. There is mild elevation of the right hemidiaphragm, unchanged. Calcifications within the aortic knob are ag ain noted. Degenerative changes within the bilateral shoulders persist. IMPRESSION: No significant change compared to the prior study. No acute process. Stable mild cardiomegaly. ACT 112: Negative or not required by law. Electronically signed by: Saurabh Cole M.D. 04/08/2021 7:51 PM
[2021-04-08 19:53] LABS: D Dimer 1040 ug/L FEU (0-500)
[2021-04-08 19:57] LABS: Anion Gap 9 (3-11); BUN Creatinine Ratio 12.7 (10-20); Blood Urea Nitrogen 14 mg/dl (6-23); Calcium 8.6 mg/dl (8.5-10.1); Carbon Dioxide 31 mmol/L (21-32); Chloride 98 mmol/L (98-107); Creatinine Clr Calc Pharmacy 42.2 ml/min; Est GFR (African American) 56.1 ml/min; Est GFR (Non-African American) 48.4 ml/min; Glucose 301 mg/dl (70-99(Fasting)); Lipase 33 U/L (11-82); Potassium 3.1 mmol/L (3.5-5.1); Sodium 138 mmol/L (136-145)
[2021-04-08] MEDS ORDERED: OPTIRAY 320 125ml IV ONE (20:10)
--- NOTE | 2021-04-08 20:25 | CT Scan Report ---
HEAD CT NONCONTRAST CT DOSE: HISTORY: L sided facial droop TECHNIQUE: Multiaxial CT images of the head were performed without the use of intravenous contrast. A utomated exposure control was utilized for this study. A dose lowering technique was utilized adheri ng to the principles of ALARA. Comparison: Head CT 09/04/2020. Findings: The paranasal sinuses and mastoid air cells are clear. The calvarium and skull base are int act. There is no mass, hematoma, midline shift, acute infarct. White matter hypodensity is nonspecifi c but suggestive of microvascular ischemic change. The ventricles and sulci demonstrate mild age-rela pascual involutional changes. Impression: No significant change compared to the prior study. No acute intracranial abnormality. ACT 112: Negative or not required by law. Electronically signed by: Saurabh Cole M.D. 04/08/2021 8:24 PM
--- NOTE | 2021-04-08 20:36 | CT Scan Report ---
CHEST CTA for PULMONARY ARTERIES CT DOSE: 1371.33 mGy.cm HISTORY: Covid positive. Shortness of breath. TECHNIQUE: Multiaxial CT images of the chest were performed following the intravenous administration of contrast to evaluate the pulmonary arteries. Maximal intensity projection images were also obtaine d. A dose lowering technique was utilized adhering to the principles of ALARA. COMPARISON STUDY: Chest CT 11/17/2019. FINDINGS: Mild anterior wedging at T7, unchanged. This is likely chronic. Partially visualized 1.2 cm low-density nodule within the right adrenal gland. Therefore, this favors a benign adenoma. The visu alized liver and spleen are unremarkable. There is a small hiatus hernia. Otherwise, normal caliber e sophagus. The thyroid gland enhances normally. The heart remains top normal in size. No pleural or pe ricardial effusions. No mediastinal or hilar lymphadenopathy. Normal caliber thoracic aorta with no e vidence for dissection. Mild calcified plaque within the aortic arch and coronary arteries. A few sma ll filling defects seen within the right lower lobe segmental/subsegmental pulmonary arteries consist ent with pulmonary emboli. The remaining pulmonary arteries are patent. No evidence for right-sided h eart strain. No suspicious lytic or blastic osseous lesions. No pneumothorax. The central airways are patent. Mild elevation of the right hemidiaphragm, unchanged. A few bibasilar linear densities consi stent with subsegmental atelectasis. No focal lung consolidations to suggest pneumonia or a pulmonary infarct. IMPRESSION: 1. A few small right lower lobe segmental/subsegmental pulmonary emboli. 2. No evidence for right-sided heart strain. 3. Small hiatus hernia. 4. No focal lung consolidations to suggest pneumonia. ACT 112: Negative or not required by law. Electronically signed by: Saurabh Cole M.D. 04/08/2021 8:35 PM
[2021-04-08] MEDS ORDERED: Heparin IV Adult Wt-Based Standard WITH Bolus Protocol IV STA (20:45)
[2021-04-08] MEDS ORDERED: HEPARIN SOD (PORCINE) 1000 UNIT/ML IV ONE (21:01)
--- NOTE | 2021-04-08 21:06 | History & Physical Report ---
Date of Service April 08, 2021 Assessment & Plan (1) Pulmonary embolism: Plan: 75 yo F Hx cognitive decline, CAD, asthma, DM2 on insulin therapy, HTN, HLD, GERD, restless legs syndrome, anxiety, depression admitted for acute hypoxic respiratory failure 2/2 pulmonary emboli. Acute hypoxic respiratory failure, pulmonary emboli: Presented with SpO2 88% on room air and tachycardic, no baseline oxygen requirement. D dimer elevated. CTA Chest revealed several small RLL segmental and subsegmental PEs without evidence of right heart strain, no pneumonia or masses. Given patient's minimal ambulation during the day, would label this event provoked. Bilateral LE duplex ordered. Started on Heparin gtt, ultimately will transition to NOAC. Goal SpO2 > 90%. Consider nocturnal pulse ox; suspect patient may have underlying NATHANIEL/ obesity hypoventilation syndrome contributing to overall clinical picture. 2 Step on day of discharge. Will need PCP follow up to ensure UTD on routine cancer screening. Cognitive decline, ambulatory dysfunction: Has been concern in the past (see 10/08/20 Endocrinology note for example) regarding patient's ability to take her medications appropriately at home, either secondary to dementia or psychiatric illnes. Per this note, patient has aids every day, however today patient reports aids twice weekly in her home. Will need clarification during [employer] business hours. Also noted in several EMR provider notes to have ambulatory dysfunction, including admission August 2020 for ambulatory dysfunction with ultimate discharge to acute rehab. Case Management consulted given patient's complex needs, and need for new medication NOAC on discharge. PT and OT consulted to determine patient's level of function/need prior to discharge. Conjunctivitis: Noted on my exam to have left eye erythema and mucopurulent drainage consistent with conjunctivitis. Of note, was seen by Ophthalmology February 2021 for eye redness and tearing and was placed on artificial tears. No evidence of conjunctivitis noted at that time. Will start polymyxin B/trimethoprim drops q6h to left eye. ? Facial droop: Presented due to caregiver concern of left sided facial droop. Not noted to have facial droop per ER provider nor per my exam. Also without other focal neurologic deficits. CT Head this admission without acute findings. DM2: Continue basal/bolus insulin. DM2 diet. A1c ordered. CAD: Continue Plavix, statin, beta lisette. HTN: Continue HCTZ. GERD: Continue PPI. Neuropathy, restless legs syndrome: Continue pregabalin, ropinirole. Depression, anxiety: Continue olanzapine, escitalopram. Code Status: FULL CODE FEN: DM2, heart healthy diet DVT ppx: heparin gtt Dispo: Med/Surg with Tele (2) Acute respiratory failure with hypoxia: (3) Cognitive impairment: (4) Type 2 diabetes mellitus, with long-term current use of insulin: (5) Hypertension: (6) Depression: (7) Anxiety: (8) Coronary artery disease: (9) Asthma: (10) GERD (gastroesophageal reflux disease): (11) Restless leg syndrome: History of Present Illness Chief Complaint: left facial droop per caregiver, dyspnea per patient Primary Care Provider: Lewis Villa, III, [employer] GRINDER 75 yo F Hx cognitive decline, CAD, asthma, DM2 on insulin therapy, HTN, HLD, GERD, restless legs syndrome, anxiety, depression presented to the ER due to concern from caregiver who noted a possible left facial droop today. Last known well yesterday. In the ER patient was noted to be mildly tachycardia to 100s, and hypoxic to 88% on room air with no baseline oxygen requirement. ER provider did not note any focal neurologic deficits including a facial droop. CT head was performed which did not show any signs of stroke. Lab work notable for D-dimer elevated to 1040. COVID-19 negative. Patient was started on a heparin drip and hospitalist service was consulted for admission. Patient reports that over the last several days she has been "huffing and puffing more", and has had a few episodes of sweating the bed. Does have a remote history of a cancer and is s/p hysterectomy several years ago. Feels more comfortable and less short of breath on 2LNC at this time. Otherwise no stated complaints. Allergies Allergy/AdvReac Type Severity Reaction Status Date / Time ceftriaxone Allergy Unknown PARESTHESIA Verified 04/08/21 20:27 amoxicillin AdvReac Mild Gastrointestinal Verified 04/08/21 20:27 Upset aspirin AdvReac Mild Gastrointestinal Verified 04/08/21 20:27 Upset clavulanic acid AdvReac Mild Gastrointestinal Verified 04/08/21 20:27 Upset codeine AdvReac Mild INTOLERANCE Verified 04/08/21 20:27 STERIODS Allergy Severe RIGHT Uncoded 04/08/21 20:27 SIDED PARALYSIS Home Medications Medication Instructions Recorded Confirmed Type multivitamin 1 tab PO QAM 06/29/20 04/08/21 History insulin aspart U-100 100 unit/mL 8 unit SQ TID 30 Days #15 ml 10/08/20 04/08/21 Rx (3 mL) subcutaneous pen (Novolog Flexpen U-100 Insulin aspart) Medication Management 1 ea .ROUTE .week #1 ea 11/30/20 01/28/21 Rx pregabalin 100 mg capsule 100 mg PO BID #60 cap 01/29/21 04/08/21 Rx albuterol sulfate 90 mcg/actuation 1 puff INHALATION Q6H PRN #6.7 g 02/12/21 04/08/21 Rx aerosol inhaler (Ventolin HFA) atorvastatin 40 mg tablet (Lipitor) 40 mg PO HS #90 tab 02/12/21 04/08/21 Rx clopidogrel 75 mg tablet (Plavix) 75 mg PO QAM #90 tab 02/12/21 Rx escitalopram oxalate 10 mg tablet 10 mg PO QAM #90 tab 02/12/21 04/08/21 Rx famotidine 20 mg tablet 20 mg PO BID #60 tab 02/12/21 04/08/21 Rx hydrochlorothiazide 25 mg tablet 25 mg PO BID #180 tab 02/12/21 04/08/21 Rx magnesium 250 mg tablet 250 mg PO QAM #90 tab 02/12/21 04/08/21 Rx nebivolol 10 mg tablet (Bystolic) 10 mg PO QAM #90 tab 02/12/21 04/08/21 Rx olanzapine 10 mg tablet 10 mg PO BID #180 tab 02/12/21 04/08/21 Rx pantoprazole 40 mg tablet,delayed 40 mg PO BID #180 tab 02/12/21 04/08/21 Rx release ropinirole 0.25 mg tablet 0.25 mg PO HS #30 tab 02/12/21 04/08/21 Rx insulin glargine 100 unit/mL (3 54 unit SQ HS #15 ml 03/22/21 04/08/21 Rx mL) subcutaneous pen (Basaglar KwikPen U-100 Insulin) rivaroxaban 15 mg tablet (Xarelto) 15 mg PO BID 21 Days #42 tab 04/09/21 Rx Past Med/Surg History Medical History Anxiety Asthma WELL CONTROLLED Bilateral hearing loss 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 SKIN CANCER Cerebrovascular disease Chronic sinusitis Coronary artery disease Depression Diabetes mellitus type 2, uncontrolled Dyslipidemia Exposure to COVID-19 virus GERD (gastroesophageal reflux disease) Hiatal hernia History of colitis History of concussion Hypertension Leukocytosis (Unknown) Low back pain Lumbago Myofascial pain On anticoagulant therapy plavix daily Osteoarthritis Restless leg syndrome Sacroiliitis hx of Surgical History History of arthroscopy of knee History of bilateral tubal ligation History of carpal tunnel release of both wrists History of cataract surgery BILATERAL History of section History of colonoscopy History of esophagogastroduodenoscopy (EGD) (~06/12/10) History of laminectomy LUMBAR History of laparoscopic cholecystectomy History of lumpectomy of right breast (~10/27/14) History of repair of rotator cuff BILATERAL History of total hysterectomy with bilateral salpingo-oophorectomy (BSO) Family History Mother Rheumatoid arthritis Diabetes Lupus Myocardial infarction Hypertension Grandmother (Paternal) Family history of diabetes mellitus Father Thoracic aortic aneurysm (TAA) Lung cancer Hypertension Grandfather (Paternal) Myocardial infarction Uncle Diabetes Sister Hypertension Brother Hypertension Other Breast cancer Cancer FH: cholecystectomy No family history of adverse response to anesthesia Denies family history of Ovarian cancer Prostate cancer Adverse anesthesia outcome Bleeding disorder Colorectal cancer Social History Smoking Status: Former smoker Tobacco Type: Cigarettes Smoking End Date: 28 years ago; Second Hand Exposure: No; Do You Dip or Chew Tobacco: No; Tobacco Cessation Education Requested by Patient: No Hx Alcohol Use: No Hx Substance Use: No Preferred Language: Mauritanian Communication Ability: Effective Visual Impairment: No Limitations Hearing Ability: Normal Railcar 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 lives alone w/ caregivers current occupational status: retired Other Information That Helps Us Care for You: No Feels Safe at Home: Yes Safety Concerns: Feels Safe At This Time Childhood Exposure to Second-Hand Smoke: No Dental Care, Regularly: Yes Physical Activity Frequency: 1-2 Times per Week Seatbelt Use: always Sunscreen Use: Yes Assistive Devices: Oxygen - Continuous and Walker Assistive Devices Comment: Pt. does not have upper/lower dentures with her a this time Review of Systems Review of Systems: All systems reviewed & are unremarkable except as noted in HPI & below Constitutional: no fever, no chills and no malaise Respiratory: + dyspnea; no cough Cardiovascular: no chest pain, no palpitations and no edema Gastrointestinal: no abdominal pain, no constipation and no diarrhea/loose stools Genitourinary: no dysuria and no hematuria Physical Exam Constitutional: WD/WN, vitals as above Eyes: scleral injection and conjunctival erythema to left eye. Mucopurulent drainage and crusted also noted on left eye ENMT: external ear and nose normal, oropharynx normal Neck: normal visual inspection Respiratory: normal respiratory effort, lungs clear to auscultation Cardiovascular: RRR, no murmur, no edema Gastrointestinal (Abdomen): normal bowel sounds, soft, nontender, no hepatosplenomegaly Musculoskeletal: no cyanosis or clubbing, extremities motor strength 5/5 Skin: no rashes, warm and dry Neurologic: Bilateral face, upper and lower extremities without focal deficit, normal symmetric sensation Psychiatric: alert, oriented to person, place, situation Results & Data Results & Data ([facility]) Vital Signs (Past 12 Hours) Vital Signs Temp Pulse BP Pulse Ox 04/08/21 18:28 37 C 108 H 166/93 H 88 L Supervising Physician Co-Signing Physician Notes Attending addendum: I have physically seen this patient, have supervised the medical residents activities, and agree with the H&P unless as otherwise noted. Assessment and Plan: Pulmonary embolism/acute respiratory failure with hypoxia- Pulse ox 88% on room air Check lower extremity venous Dopplers Hypercoagulable work-up Routine cancer screenings as outpatient Cognitive decline- Concern regarding patient's ability to take her medications Coordinate follow-up home care with neftali burch Ambulatory dysfunction- Consult PT/OT Remaining orders and notations as noted Resident Activity Tracking Resident Involvement: Resident Care Provided Care Provided: Adult Hospital Medicine
[2021-04-08] MEDS ORDERED: HEPARIN SODIUM/DEXTROSE 25,000 UNITS/500 ML BAG IV SCH (21:15)
--- NOTE | 2021-04-08 21:23 | Emergency Department Note ---
History of Present Illness General Chief complaint: TIA Symptoms Time Seen by Provider: 04/08/21 18:24 History of Present Illness Provider complaint: Hypoxia left-sided facial droop Onset (ago): unknown 75-year-old female presents emergency department via EMS. Patient has a caregiver from [employer] check up on her. Patient's caregiver got to the apartment today and called EMS because she saw a left-sided facial droop. On arrival EMS noted that the patient was satting 88% on room air. Patient is currently denying any headache chest pain difficulty breathing. Home Medications Medication Instructions Recorded Confirmed Type multivitamin 1 tab PO QAM 06/29/20 04/08/21 History insulin aspart U-100 100 unit/mL 8 unit SQ TID 30 Days #15 ml 10/08/20 04/08/21 Rx (3 mL) subcutaneous pen (Novolog Flexpen U-100 Insulin aspart) Medication Management 1 ea .ROUTE .week #1 ea 11/30/20 01/28/21 Rx pregabalin 100 mg capsule 100 mg PO BID #60 cap 01/29/21 04/08/21 Rx albuterol sulfate 90 mcg/actuation 1 puff INHALATION Q6H PRN #6.7 g 02/12/21 04/08/21 Rx aerosol inhaler (Ventolin HFA) atorvastatin 40 mg tablet (Lipitor) 40 mg PO HS #90 tab 02/12/21 04/08/21 Rx clopidogrel 75 mg tablet (Plavix) 75 mg PO QAM #90 tab 02/12/21 Rx escitalopram oxalate 10 mg tablet 10 mg PO QAM #90 tab 02/12/21 04/08/21 Rx famotidine 20 mg tablet 20 mg PO BID #60 tab 02/12/21 04/08/21 Rx hydrochlorothiazide 25 mg tablet 25 mg PO BID #180 tab 02/12/21 04/08/21 Rx magnesium 250 mg tablet 250 mg PO QAM #90 tab 02/12/21 04/08/21 Rx nebivolol 10 mg tablet (Bystolic) 10 mg PO QAM #90 tab 02/12/21 04/08/21 Rx olanzapine 10 mg tablet 10 mg PO BID #180 tab 02/12/21 04/08/21 Rx pantoprazole 40 mg tablet,delayed 40 mg PO BID #180 tab 02/12/21 04/08/21 Rx release ropinirole 0.25 mg tablet 0.25 mg PO HS #30 tab 02/12/21 04/08/21 Rx insulin glargine 100 unit/mL (3 54 unit SQ HS #15 ml 03/22/21 04/08/21 Rx mL) subcutaneous pen (Basaglar KwikPen U-100 Insulin) Allergies Allergy/AdvReac Type Severity Reaction Status Date / Time ceftriaxone Allergy Unknown PARESTHESIA Verified 04/08/21 20:27 amoxicillin AdvReac Mild Gastrointestinal Verified 04/08/21 20:27 Upset aspirin AdvReac Mild Gastrointestinal Verified 04/08/21 20:27 Upset clavulanic acid AdvReac Mild Gastrointestinal Verified 04/08/21 20:27 Upset codeine AdvReac Mild INTOLERANCE Verified 04/08/21 20:27 STERIODS Allergy Severe RIGHT Uncoded 04/08/21 20:27 SIDED PARALYSIS Past Med/Surg History Medical History Anxiety Asthma WELL CONTROLLED Bilateral hearing loss 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 SKIN CANCER Cerebrovascular disease Chronic sinusitis Coronary artery disease Depression Diabetes mellitus type 2, uncontrolled Dyslipidemia Exposure to COVID-19 virus GERD (gastroesophageal reflux disease) Hiatal hernia History of colitis History of concussion Hypertension Leukocytosis (Unknown) Low back pain Lumbago Myofascial pain On anticoagulant therapy plavix daily Osteoarthritis Restless leg syndrome Sacroiliitis hx of Surgical History History of arthroscopy of knee History of bilateral tubal ligation History of carpal tunnel release of both wrists History of cataract surgery BILATERAL History of section History of colonoscopy History of esophagogastroduodenoscopy (EGD) (~06/12/10) History of laminectomy LUMBAR History of laparoscopic cholecystectomy History of lumpectomy of right breast (~10/27/14) History of repair of rotator cuff BILATERAL History of total hysterectomy with bilateral salpingo-oophorectomy (BSO) Family History Mother Rheumatoid arthritis Diabetes Lupus Myocardial infarction Hypertension Grandmother (Paternal) Family history of diabetes mellitus Father Thoracic aortic aneurysm (TAA) Lung cancer Hypertension Grandfather (Paternal) Myocardial infarction Uncle Diabetes Sister Hypertension Brother Hypertension Other Breast cancer Cancer FH: cholecystectomy No family history of adverse response to anesthesia Denies family history of Ovarian cancer Prostate cancer Adverse anesthesia outcome Bleeding disorder Colorectal cancer Social History Smoking Status: Never smoker Tobacco Type: Cigarettes Second Hand Exposure: No; Hx Alcohol Use: No Hx Substance Use: No Preferred Language: Norwegian Communication Ability: Effective Visual Impairment: No Limitations Hearing Ability: Normal Harness Placer Required: No Beliefs That Will Affect Care: None marital status: Life Partner Current Living Situation: Alone current occupational status: retired Feels Safe at Home: Yes Childhood Exposure to Second-Hand Smoke: No Dental Care, Regularly: Yes Physical Activity Frequency: 1-2 Times per Week Seatbelt Use: always Sunscreen Use: Yes Assistive Devices: Denture - Upper, Denture - Lower, Glasses and Walker Review of Systems Unobtainable due to cognitive status Physical Exam Vital Signs Vital Signs - 24 hr 04/08/21 18:28 04/08/21 18:31 04/08/21 19:00 Temperature 37 C Temperature Source Oral Pulse Rate 108 H 105 H 100 H Respiratory Rate 18 24 Blood Pressure 166/93 H Blood Pressure Mean 117 Blood Pressure Position Lying Pulse Oximetry 88 L 93 93 Oxygen Delivery Method Room Air Nasal Cannula Nasal Cannula Oxygen Flow Rate 2 2 Sepsis Recent Fever Within 48 Hours No Sepsis New/Unexplained Change in Mental Status No Sepsis Action Taken by Nursing No Action Required 04/08/21 19:30 04/08/21 20:00 04/08/21 20:30 Temperature Temperature Source Pulse Rate 99 H 107 H 99 H Respiratory Rate 21 17 17 Blood Pressure 127/79 166/79 H Blood Pressure Mean 95 108 Blood Pressure Position Pulse Oximetry 96 93 96 Oxygen Delivery Method Nasal Cannula Nasal Cannula Nasal Cannula Oxygen Flow Rate 2 2 2 Sepsis Recent Fever Within 48 Hours Sepsis New/Unexplained Change in Mental Status Sepsis Action Taken by Nursing 04/08/21 21:00 04/08/21 21:16 Temperature Temperature Source Pulse Rate 89 Respiratory Rate 15 Blood Pressure Blood Pressure Mean Blood Pressure Position Pulse Oximetry 95 98 Oxygen Delivery Method Nasal Cannula Nasal Cannula Oxygen Flow Rate 2 2 Sepsis Recent Fever Within 48 Hours Sepsis New/Unexplained Change in Mental Status Sepsis Action Taken by Nursing Physical Exam GENERAL: She is oriented to person, place, and time. She appears well-developed and well-nourished. She does not appear distressed. HENT: Exam performed. -Head: Normocephalic and atraumatic. -Right Ear: External ear normal. No mastoid tenderness. -Left Ear: External ear normal. No mastoid tenderness. -Mouth/Throat: The oropharynx is clear and moist. No trismus in the jaw. No dental abscesses or uvula swelling. No oropharyngeal exudate or tonsillar abscesses. EYES: Conjunctivae and EOM are normal. Pupils are equal, round, and reactive to light. Right eye exhibits no discharge. Left eye exhibits no discharge. No scleral icterus. NECK: Normal range of motion. Neck supple. No JVD present. No spinous process tenderness present. No carotid bruit present. No rigidity. No tracheal deviation and normal range of motion present. No Brudzinski's sign and no Kernig's sign noted. CV: Normal rate, regular rhythm, normal heart sounds and intact distal pulses. There is no peripheral edema. Palpable radial pulses bue. PULM/CHEST: Rhonchi bilaterally. -Chest Wall: She exhibits no tenderness. ABD: The abdomen is soft and obese Bowel sounds are normal. She has no distension. No mass is present. There is no tenderness. There is no rebound, no guarding, no Duran's sign and no tenderness at McBurney's point. Rovsig negative MUSC/SKEL: Normal range of motion. There is no peripheral edema, tenderness or deformity. LYMPH: No cervical adenopathy. NEURO: NIHSS: 0 no facial droop. PSYCH: She has a normal mood and affect. Behavior is normal. Judgment and thought content normal. Course Course 1823: The patient was evaluated in room B4. A complete history and physical exam was performed Cardiac monitoring: An order was placed for continuous cardiac monitoring. The monitor shows a rate of 90 with sinus rhythm On arrival the patient is having oxygen saturation of 88% on room air. 2 L nasal cannula improved the patient's oxygen saturation. 2044: Vital signs stable on supplemental oxygen via nasal cannula. Labs are within normal limits with exception of elevated D-dimer. CTA of the chest does show small PEs. Given the patient's hypoxia the patient will be admitted to the [facility] hospitalist service and started on heparin drip. Patient will be admitted to Dr. Lowry service. Administered Medications Heparin Sodium/Dextrose (Heparin Sodium/Dextrose) 25,000 units in 500 mls @ 23 mls/hr IV .[id number] [facility]; Protocol Stop: 05/08/21 21:14 Last Admin: 04/08/21 21:09 Dose: 1,150 units/hr, 23 mls/hr Documented by: [id number] Cosigned by: [id number] Discontinued Medications Albuterol (Albut/Ipratrop 3mg/0.5mg Neb 3 Ml Vial) 3 ml NEB NOW STA; Protocol Stop: 04/08/21 18:37 Last Admin: 04/08/21 19:19 Dose: 3 ml Documented by: [id number] Heparin Sodium (Porcine) (Heparin Sod (Porcine) 1000 Unit/Ml) 1 units IV NOW ONE Stop: 04/08/21 21:02 Last Admin: 04/08/21 21:08 Dose: 5,000 units Documented by: [id number] Cosigned by: [id number] Ioversol (Optiray 320 125ml) 120 ml IV ONCE ONE Stop: 04/08/21 20:11 Last Admin: 04/08/21 20:11 Dose: 120 ml Documented by: [id number] Critical Care Time Critical Care Time: Yes Total Critical Care Time: 77 I have personally spent greater than 77 minutes of critical care time in the direct management of this patient. This includes bedside care, interpretation of diagnostic studies, and testing, discussion with consultants, patient, and family members, and other required patient management activities. This 77 minutes is in excess of all separately billable procedures. Medical Decision Making Laboratory Data Result diagrams: 04/08/21 19:02 04/08/21 19:02 Lab Results 04/08/21 04/08/21 04/08/21 Range/Units 19:02 19:02 19:02 WBC 12.09 H (4.8-10.8) K/uL RBC 4.81 (4.2-5.4) M/uL Hgb 14.6 (12.0-16.0) g/dL Hct 44.1 (37-47) % MCV 91.7 (80-100) fL MCH 30.4 (25-34) pg MCHC 33.1 (32-36) g/dL RDW Std Deviation 48.2 H (36.4-46.3) fL RDW Coeff of Shahrzad 14.3 (11.5-14.5) % Plt Count 256 (130-400) K/uL MPV 11.1 H (7.4-10.4) fL Immature Gran % (Auto) 0.3 % Neut % (Auto) 50.1 % Lymph % (Auto) 40.0 % [place] % (Auto) 7.6 % Eos % (Auto) 1.6 % Baso % (Auto) 0.4 % Neut # (Auto) 6.05 (1.4-6.5) K/uL Lymph # (Auto) 4.84 H (1.2-3.4) K/uL [place] # (Auto) 0.92 H (0.11-0.59) K/uL Eos # (Auto) 0.19 (0-0.5) K/uL Baso # (Auto) 0.05 (0-0.2) K/uL Immature Gran # (Auto) 0.04 H (0.00-0.02) K/uL PT (9.0-12.0) Seconds INR (0.9-1.1) APTT (21.0-31.0) Seconds PTT Ratio D-Dimer (0-500) ug/L FEU VBG pH (7.36-7.41) VBG pCO2 (38-50) mmHg VBG pO2 mmHg VBG HCO3 mmol/L VBG O2 Saturation % VBG Base Excess mEq/L Barometric Pressure mm/Hg Sodium 138 (136-145) mmol/L Potassium 3.1 L (3.5-5.1) mmol/L Chloride 98 (98-107) mmol/L Carbon Dioxide 31 (21-32) mmol/L Anion Gap 9 (3-11) BUN 14 (6-23) mg/dl Creatinine 1.10 (0.6-1.2) mg/dl Est Cr Clr Drug Dosing 42.2 ml/min Est GFR ( Amer) 56.1 ml/min Est GFR (Non-Af Amer) 48.4 ml/min BUN/Creatinine Ratio 12.7 (10-20) Glucose 301 H* (70-99(Fasting)) mg/dl Calcium 8.6 (8.5-10.1) mg/dl Troponin I < 0.03 (0-0.04) ng/ml B-Natriuretic Peptide 29 (0-100) pg/ml Lipase 33 (11-82) U/L SARS-CoV-2, RNA, NAAT (NEGATIVE) 04/08/21 04/08/21 04/08/21 Range/Units 19:02 19:02 19:02 WBC (4.8-10.8) K/uL RBC (4.2-5.4) M/uL Hgb (12.0-16.0) g/dL Hct (37-47) % MCV (80-100) fL MCH (25-34) pg MCHC (32-36) g/dL RDW Std Deviation (36.4-46.3) fL RDW Coeff of Shahrzad (11.5-14.5) % Plt Count (130-400) K/uL MPV (7.4-10.4) fL Immature Gran % (Auto) % Neut % (Auto) % Lymph % (Auto) % [place] % (Auto) % Eos % (Auto) % Baso % (Auto) % Neut # (Auto) (1.4-6.5) K/uL Lymph # (Auto) (1.2-3.4) K/uL [place] # (Auto) (0.11-0.59) K/uL Eos # (Auto) (0-0.5) K/uL Baso # (Auto) (0-0.2) K/uL Immature Gran # (Auto) (0.00-0.02) K/uL PT 10.2 (9.0-12.0) Seconds INR 1.0 (0.9-1.1) APTT 23.3 (21.0-31.0) Seconds PTT Ratio 0.9 D-Dimer 1040 H* (0-500) ug/L FEU VBG pH 7.45 H (7.36-7.41) VBG pCO2 50 (38-50) mmHg VBG pO2 55 mmHg VBG HCO3 34 mmol/L VBG O2 Saturation 89.0 % VBG Base Excess 8.0 mEq/L Barometric Pressure 739.3 mm/Hg Sodium (136-145) mmol/L Potassium (3.5-5.1) mmol/L Chloride (98-107) mmol/L Carbon Dioxide (21-32) mmol/L Anion Gap (3-11) BUN (6-23) mg/dl Creatinine (0.6-1.2) mg/dl Est Cr Clr Drug Dosing ml/min Est GFR ( Amer) ml/min Est GFR (Non-Af Amer) ml/min BUN/Creatinine Ratio (10-20) Glucose (70-99(Fasting)) mg/dl Calcium (8.5-10.1) mg/dl Troponin I (0-0.04) ng/ml B-Natriuretic Peptide (0-100) pg/ml Lipase (11-82) U/L SARS-CoV-2, RNA, NAAT (NEGATIVE) 04/08/21 Range/Units Unknown WBC (4.8-10.8) K/uL RBC (4.2-5.4) M/uL Hgb (12.0-16.0) g/dL Hct (37-47) % MCV (80-100) fL MCH (25-34) pg MCHC (32-36) g/dL RDW Std Deviation (36.4-46.3) fL RDW Coeff of Shahrzad (11.5-14.5) % Plt Count (130-400) K/uL MPV (7.4-10.4) fL Immature Gran % (Auto) % Neut % (Auto) % Lymph % (Auto) % [place] % (Auto) % Eos % (Auto) % Baso % (Auto) % Neut # (Auto) (1.4-6.5) K/uL Lymph # (Auto) (1.2-3.4) K/uL [place] # (Auto) (0.11-0.59) K/uL Eos # (Auto) (0-0.5) K/uL Baso # (Auto) (0-0.2) K/uL Immature Gran # (Auto) (0.00-0.02) K/uL PT (9.0-12.0) Seconds INR (0.9-1.1) APTT (21.0-31.0) Seconds PTT Ratio D-Dimer (0-500) ug/L FEU VBG pH (7.36-7.41) VBG pCO2 (38-50) mmHg VBG pO2 mmHg VBG HCO3 mmol/L VBG O2 Saturation % VBG Base Excess mEq/L Barometric Pressure mm/Hg Sodium (136-145) mmol/L Potassium (3.5-5.1) mmol/L Chloride (98-107) mmol/L Carbon Dioxide (21-32) mmol/L Anion Gap (3-11) BUN (6-23) mg/dl Creatinine (0.6-1.2) mg/dl Est Cr Clr Drug Dosing ml/min Est GFR ( Amer) ml/min Est GFR (Non-Af Amer) ml/min BUN/Creatinine Ratio (10-20) Glucose (70-99(Fasting)) mg/dl Calcium (8.5-10.1) mg/dl Troponin I (0-0.04) ng/ml B-Natriuretic Peptide (0-100) pg/ml Lipase (11-82) U/L SARS-CoV-2, RNA, NAAT NEGATIVE (NEGATIVE) Imaging Data Radiologist's Impression: Head CT 04/08/21 18:[address] DOSE: HISTORY: L sided facial droop TECHNIQUE: Multiaxial CT images of the head were performed without the use of intravenous contrast. Automated exposure control was utilized for this study. A dose lowering technique was utilized adhering to the principles of ALARA. Comparison: Head CT 09/04/2020. Findings: The paranasal sinuses and mastoid air cells are clear. The calvarium and skull base are intact. There is no mass, hematoma, midline shift, acute infarct. White matter hypodensity is nonspecific but suggestive of microvascular ischemic change. The ventricles and sulci demonstrate mild age-related involutional changes. Impression: No significant change compared to the prior study. No acute intracranial abnormality. ACT 112: Negative or not required by law. Electronically signed by: Saurabh oCle M.D. 04/08/2021 8:24 PM Chest X-Ray 04/08/21 19:37 XR chest 1V portable HISTORY: Shortness of breath. COMPARISON: Chest 08/09/2020. FINDINGS: No pneumothorax. No pleural effusions. There are low lung volumes. The heart remains mildly enlarged. No focal lung consolidations to suggest pneumonia. No evidence for pulmonary edema. There is mild elevation of the right hemidiaphragm, unchanged. Calcifications within the aortic knob are again noted. Degenerative changes within the bilateral shoulders persist. IMPRESSION: No significant change compared to the prior study. No acute process. Stable mild cardiomegaly. ACT 112: Negative or not required by law. Electronically signed by: Saurabh Cole M.D. 04/08/2021 7:51 PM Chest CTA 04/08/21 19:53 CHEST CTA for PULMONARY ARTERIES CT DOSE: 1371.33 mGy.cm HISTORY: Covid positive. Shortness of breath. TECHNIQUE: Multiaxial CT images of the chest were performed following the intravenous administration of contrast to evaluate the pulmonary arteries. Maximal intensity projection images were also obtained. A dose lowering tech nique was utilized adhering to the principles of ALARA. COMPARISON STUDY: Chest CT 11/17/2019. FINDINGS: Mild anterior wedging at T7, unchanged. This is likely chronic. Partially visualized 1.2 cm low-density nodule within the right adrenal gland. T herefore, this favors a benign adenoma. The visualized liver and spleen are unremarkable. There is a small hiatus hernia. Otherwise, normal caliber esophagus. The thyroid gland enhances normally. The heart remains top normal in size. No pleural or pericardial effusions. No mediastinal or hilar lymph adenopathy. Normal caliber thoracic aorta with no evidence for dissection. Mild calcified plaque within the aortic arch and coronary arteries. A few small filling defects seen within the right lower lobe segmental/subsegmental pulmonary arteries consistent with pulmonary emboli. The remaining pulmonary arteries are patent. No evidence for right-sided heart strain. No suspicious lytic or blastic osseous lesions. No pneumothorax. The central airways are patent. Mild elevation of the right hemidiaphragm, unchanged. A few bibasilar linear densities consistent with subsegmental atelectasis. No focal lung consolidations to suggest pneumonia or a pulmonary infarct. IMPRESSION: 1. A few small right lower lobe segmental/subsegmental pulmonary emboli. 2. No evidence for right-sided heart strain. 3. Small hiatus hernia. 4. No focal lung consolidations to suggest pneumonia. ACT 112: Negative or not required by law. Electronically signed by: Saurabh Cole M.D. 04/08/2021 8:35 PM ECG Data Indication: + SOB/dyspnea Rate (beats per minute): 98 Rhythm: + normal sinus ECG Intervals/blocks: + Normal QRS, + Normal TX and + Normal QT-c ECG ST segments: + Normal ST segments MDM Narrative 1824: The patient was evaluated in room B4. A complete history and physical exam was performed Cardiac monitoring: An order was placed for continuous cardiac monitoring. The monitor shows a rate of 90 with sinus rhythm On arrival the patient is having oxygen saturation of 88% on room air. 2 L nasal cannula improved the patient's oxygen saturation. 2044: Vital signs stable on supplemental oxygen via nasal cannula. Labs are within normal limits with exception of elevated D-dimer. CTA of the chest does show small PEs. Given the patient's hypoxia the patient will be admitted to the [facility] hospitalist service and started on heparin drip. Patient will be admitted to Dr. Lowry service. Impression & Plan Hypoxia, Pulmonary emboli Discharge Plan Visit Data Chief Complaint: TIA Symptoms ED Provider: John García Discharge Problem: Hypoxia, Pulmonary emboli Patient Disposition: Admitted As Inpatient Forms Stand Alone Forms: My [facility] [employer] Prescriptions Prescriptions: No Action Medication Management 1 ea .Route .week Qty: 1 RF: 0 pregabalin 100 mg capsule 100 mg PO BID Qty: 60 RF: 5 albuterol sulfate [Ventolin HFA] 90 mcg/actuation HFA aerosol inhaler 1 puff INHALATION Q6H PRN (Reason: Shortness Of Breath Or Wheezing) Qty: 6.7 RF: 1 Hold Instructions: pt has not picked up from pharm in over year atorvastatin [Lipitor] 40 mg tablet 40 mg PO HS Qty: 90 RF: 1 Hold Instructions: pt never picked up from pharmacy clopidogrel [Plavix] 75 mg tablet 75 mg PO QAM Qty: 90 RF: 2 Hold Instructions: pt has never picked up from pharmacy escitalopram oxalate 10 mg tablet 10 mg PO QAM Qty: 90 RF: 1 famotidine 20 mg tablet 20 mg PO BID Qty: 60 RF: 5 Hold Instructions: last dispensed 12/2019, 90 days hydrochlorothiazide 25 mg tablet 25 mg PO BID Qty: 180 RF: 1 magnesium 250 mg tablet 250 mg PO QAM Qty: 90 RF: 1 Bystolic 10 mg tablet 10 mg PO QAM Qty: 90 RF: 1 Hold Instructions: last dispensed 12/2019, 90 day olanzapine 10 mg tablet 10 mg PO BID Qty: 180 RF: 1 pantoprazole 40 mg tablet,delayed release (DR/EC) 40 mg PO BID Qty: 180 RF: 3 Hold Instructions: last dispensed 12/2019 ropinirole 0.25 mg tablet 0.25 mg PO HS Qty: 30 RF: 5 Basaglar KwikPen U-100 Insulin 100 unit/mL (3 mL) insulin pen 54 unit SQ HS Qty: 15 RF: 0 Hold Instructions: last dispensed 12/2019 90 day insulin aspart U-100 [Novolog Flexpen U-100 Insulin] 100 unit/mL (3 mL) insulin pen 8 unit SQ TID 30 Days Qty: 15 RF: 5 Hold Instructions: last dispensed 11/2019 90 day supply multivitamin Tablet 1 tab PO QAM RF: 0 Referrals Referrals: Lewis Villa III, CRNP [Primary Care Provider] -
[2021-04-08] MEDS ORDERED: ALBUTEROL HFA 8 GM INHALER INH PRN (23:06)
[2021-04-08] MEDS ORDERED: DEXTROSE 50% 50 ML SYRINGE IV PRN (23:06)
[2021-04-08] MEDS ORDERED: CARBOHYDRATES FOR HYPOGLYCEMIA PO PRN (23:06)
[2021-04-08] MEDS ORDERED: GLUCOSE 40% GEL 15 GM TUBE PO PRN (23:06)
[2021-04-08] MEDS ORDERED: POLYETHYLENE (MIRALAX) 17 GM PACK PO PRN (23:06)
[2021-04-08] MEDS ORDERED: GLUCOSE 10 TABS/TUBE PO PRN (23:06)
[2021-04-08] MEDS ORDERED: GLUCAGON FOR INJ 1 MG VIAL SQ PRN (23:06)
[2021-04-08] MEDS: ATORVASTATIN 40 MG TAB PO SCH (23:51)
[2021-04-08] MEDS: OLANZapine 10 MG TAB PO SCH (23:51)
[2021-04-08] MEDS: TRIMETHOPRIM/POLYMYXIN B OP SCH (23:51)
[2021-04-08] MEDS: PREGABALIN 100 MG CAP PO SCH (23:52)
[2021-04-08] MEDS: rOPINIRole HCL 0.25 MG TABLET PO SCH (23:52)
[2021-04-09] MEDS: PANTOprazole 40 MG TAB PO SCH ×3 (00:30→20:09)
[2021-04-09] MEDS: INSULIN ASPART PER UNIT SC SCH ×6 (00:30→20:17)
[2021-04-09] MEDS: INSULIN GLARGINE SOLOSTAR 100 UNITS/ML 3 ML PEN SC SCH ×3 (00:30→20:12)
[2021-04-09] MEDS: TRIMETHOPRIM/POLYMYXIN B OP SCH ×4 (03:45→21:06)
[2021-04-09] MEDS: ACETAMINOPHEN 325 MG TAB PO PRN ×2 (03:48→20:09)
[2021-04-09 04:42] LABS: Partial Thromboplastin Time 52.4 Seconds (21.0-31.0)
--- NOTE | 2021-04-09 06:47 | Ultrasound Report ---
BILATERAL LOWER EXTREMITY VENOUS DOPPLER HISTORY: Acute pain and swelling of the legs PE COMPARISON STUDY: CTA chest of same day FINDINGS: There is normal compressibility, flow, and augmentation within the bilateral lower extremit y deep venous systems. IMPRESSION: No DVT within the right or left lower extremity. ACT 112: Negative or not required by law. Electronically signed by: Silverio Smith M.D. 04/09/2021 6:46 AM
[2021-04-09 07:22] LABS: Estimated Average Glucose 229 mg/dl; Hemoglobin A1C 9.6 % (4.5-5.6)
[2021-04-09] MEDS: CLOPIDOGREL BISULFATE 75 MG TAB PO SCH (08:28)
[2021-04-09] MEDS: PREGABALIN 100 MG CAP PO SCH ×2 (08:29→20:09)
[2021-04-09] MEDS: ESCITALOPRAM OXALATE 10 MG TAB PO SCH (08:29)
[2021-04-09] MEDS: hydroCHLOROthiazide 25 MG TAB PO SCH ×2 (08:30→17:11)
[2021-04-09] MEDS: METOPROLOL TARTRATE 50 MG TAB PO SCH ×2 (08:30→20:09)
[2021-04-09] MEDS: FAMOTIDINE 20 MG TAB PO SCH ×2 (08:30→21:06)
[2021-04-09] MEDS: OLANZapine 10 MG TAB PO SCH ×2 (08:30→20:08)
[2021-04-09] MEDS ORDERED: hydroCHLOROthiazide 25 MG TAB PO SCH (09:00)
--- NOTE | 2021-04-09 09:20 | Electrocardiogram Report ---
Test Reason : Blood Pressure : / mmHG Vent. Rate : 098 BPM Atrial Rate : 098 BPM P-R Int : 144 ms QRS Dur : 088 ms QT Int : 366 ms P-R-T Axes : 043 -36 031 degrees QTc Int : 467 ms Normal sinus rhythm Left axis deviation Inferior infarct , age undetermined Poor R wave progression, consider anterior NV vs. lead placement vs. LVH Abnormal ECG When compared with ECG of 09-AUG-2020 22:59, Vent. rate has increased BY 33 BPM Inferior infarct is now Present Confirmed by Darrell Thomas [id number]) on 04/09/2021 9:20:36 AM Referred By: REFERRED SELF Confirmed By:Darrell Thomas
--- NOTE | 2021-04-09 15:11 | Hospitalist Progress Note ---
Date of Service April 09, 2021 Assessment & Plan (1) Acute respiratory failure with hypoxia: Plan: 75 yo F Hx cognitive decline, CAD, asthma, DM2 on insulin therapy, HTN, HLD, GERD, restless legs syndrome, anxiety, depression admitted for acute hypoxic respiratory failure 2/2 pulmonary emboli. Acute hypoxic respiratory failure/pulmonary emboli: - Presented with SpO2 88% on room air and tachycardic, no baseline oxygen requirement. D dimer elevated. - CTA Chest revealed several small RLL segmental and subsegmental PEs without evidence of right heart strain, no pneumonia or masses. -- BNP and troponin negative and can defer echocardiogram at this time - Given patient's minimal ambulation during the day, would label this event provoked. Bilateral LE duplex - negative for subsequent DVT - Started on Heparin gtt and will convert to Xarelto - checked and is covered by insurance -- Xarelto 15 mg BID x 21 days then changed to 20 mg daily after - Goal SpO2 > 90% -- continue to wean O2 -- Given body habitus and likely NATHANIEL she will probably desaturate - Suspect patient may have underlying NATHANIEL/ obesity hypoventilation syndrome contributing to overall clinical picture - recommend outpatient sleep study - 2 Step on day of discharge to assess O2 needs - Will need PCP follow up to ensure UTD on routine cancer screening. Cognitive decline/ambulatory dysfunction: - Has been concern in the past (see 10/08/20 Endocrinology note for example) regarding patient's ability to take her medications appropriately at home, either secondary to dementia or psychiatric illness. -- Has a case management assistant through [employer]; has aids every other day - Also noted in several EMR provider notes to have ambulatory dysfunction, including admission August 2020 for ambulatory dysfunction with ultimate discharge to acute rehab. - States she can get some dizziness with standing - possibly some orthostasis contributing? - Case Management consulted Conjunctivitis: - Noted on exam to have left eye erythema and mucopurulent drainage consistent with conjunctivitis; also states she wakes up with crusted over eyes - Of note, was seen by Ophthalmology February 2021 for eye redness and tearing and was placed on artificial tears. No evidence of conjunctivitis noted at that time. - Continue polymyxin B/trimethoprim drops q6h to left eye. ? Facial droop: - Presented due to caregiver concern of left sided facial droop. - Not noted to have facial droop per ER provider nor per my exam. Also without other focal neurologic deficits. - CT Head this admission without acute findings. DM2 Uncontrolled: - A1c 9.6 - Continue basal/bolus insulin. CAD: - Continue Plavix, statin, beta lisette. HTN: - Continue HCTZ. GERD: - Continue PPI. Neuropathy/restless legs syndrome: - Continue pregabalin, ropinirole. Depression/anxiety: - Continue olanzapine, escitalopram. Code Status: FULL CODE FEN: DM2, heart healthy diet DVT ppx: Xarelto Dispo: Med/Surg with Tele (2) Pulmonary embolism: (3) Cognitive impairment: (4) Type 2 diabetes mellitus, with long-term current use of insulin: (5) Hypertension: (6) Depression: (7) Anxiety: Admission and Anticipated Discharge Date Admission Date: April 08, 2021 Subjective No acute events overnight. Reports she is feeling a bit better today. She does note she had some chest pain and shortness of breath in the previous days but didn't think much of it at the time. She is still currently on O2 but will try and wean. She states she was not having much SOB with walking to the bathroom today but felt unsteady on her feet. She states this does happen at home too especially if she stands up to fast. Mostly notices intermittent dizziness with standing. Verbalizes no new complaints. Review of Systems Review of Systems: All systems reviewed & are unremarkable except as noted in Subjective Physical Exam Physical Exam: PHYSICAL EXAM General Appearance: WDWN in NAD who is A&O x 3 HEENT: Head is normocephalic/atraumatic; Hearing grossly intact; Mucous membranes moist Neck: Supple; Trachea midline; Neg JVD Heart: RRR with no M/G/R Lungs: CTA in all lung burch bilaterally; Respirations unlabored; Neg accessory muscle use Abdomen: Soft, non-tender, non-distended; Positive BS x 4 quadrants Extremities: Neg cyanosis or edema Neurological: Speech clear; Gross motor/sensory function intact; Neg focal neurologic deficits Psychiatric: Appropriate mood/affect Skin: Normal Color; Warm/Dry Results & Data Results & [facility] ([facility]) Vital Signs (Past 12 Hours) Vital Signs Temp Pulse Pulse Resp BP Pulse Ox 04/09/21 08:00 108 H 04/09/21 07:59 36.4 C L 59 L 18 148/74 H 100 04/09/21 03:08 36.8 C 111 H 18 147/83 H 95 PG Care Time/CCT Total # of Minutes Spent Total Time Spent with Patient: Total time spent is greater than 50% in coordination of care (as documented) at patient's floor/unit and/or counseling patient: Coding Level of Care Code 84355 Subseq Hosp Care Lvl 3 Diagnoses Acute respiratory failure with hypoxia J96.01 Pulmonary embolism I26.99 Cognitive impairment R41.89 Type 2 diabetes mellitus, with long-term current use of insulin E11.9; Z79.4 Hypertension I10 Depression F32.9 Anxiety F41.9
[2021-04-09] MEDS: RIVAROXABAN 15 MG TAB PO SCH (17:11)
[2021-04-09] MEDS: rOPINIRole HCL 0.25 MG TABLET PO SCH (20:08)
--- NOTE | 2021-04-09 22:50 | Billing Data ---
Date of Service April 09, 2021 Coding Level of Care Code 41603 Initial Inpt Care Lvl 3
[2021-04-10] MEDS: TRIMETHOPRIM/POLYMYXIN B OP SCH ×4 (03:36→20:41)
[2021-04-10 07:35] LABS: Partial Thromboplastin Ratio 1.1
[2021-04-10] MEDS: INSULIN ASPART PER UNIT SC SCH ×4 (08:38→20:45)
[2021-04-10] MEDS: METOPROLOL TARTRATE 50 MG TAB PO SCH ×2 (08:39→20:41)
[2021-04-10] MEDS: OLANZapine 10 MG TAB PO SCH ×2 (08:39→20:40)
[2021-04-10] MEDS: PANTOprazole 40 MG TAB PO SCH ×2 (08:39→20:40)
[2021-04-10] MEDS: FAMOTIDINE 20 MG TAB PO SCH ×2 (08:39→20:41)
[2021-04-10] MEDS: hydroCHLOROthiazide 25 MG TAB PO SCH ×2 (08:40→17:21)
[2021-04-10] MEDS: ESCITALOPRAM OXALATE 10 MG TAB PO SCH (08:40)
[2021-04-10] MEDS: RIVAROXABAN 15 MG TAB PO SCH ×2 (08:40→17:22)
[2021-04-10] MEDS: CLOPIDOGREL BISULFATE 75 MG TAB PO SCH (08:40)
[2021-04-10] MEDS: PREGABALIN 100 MG CAP PO SCH ×2 (08:42→20:40)
[2021-04-10] MEDS: INSULIN GLARGINE SOLOSTAR 100 UNITS/ML 3 ML PEN SC SCH ×2 (08:42→20:42)
[2021-04-10] MEDS: ACETAMINOPHEN 325 MG TAB PO PRN (12:38)
--- NOTE | 2021-04-10 13:31 | Hospitalist Progress Note ---
Date of Service April 10, 2021 Assessment & Plan (1) Pulmonary embolism: Plan: 75 yo F Hx cognitive decline, CAD, asthma, DM2 on insulin therapy, HTN, HLD, GERD, restless legs syndrome, anxiety, depression admitted for acute hypoxic respiratory failure 2/2 pulmonary emboli. Acute hypoxic respiratory failure/pulmonary emboli: - Presented with SpO2 88% on room air and tachycardic, no baseline oxygen requirement. D dimer elevated. - CTA Chest revealed several small RLL segmental and subsegmental PEs without evidence of right heart strain, no pneumonia or masses. -- BNP and troponin negative and can defer echocardiogram at this time - Given patient's minimal ambulation during the day, would label this event provoked. Bilateral LE duplex - negative for subsequent DVT - Started on Heparin gtt and converted to Xarelto - checked and is covered by insurance -- Xarelto 15 mg BID x 21 days (04/29) then changed to 20 mg daily on 04/30 - Goal SpO2 > 90% -- continue to wean O2 -- Given body habitus and likely NATHANIEL she will probably desaturate at night - Suspect patient may have underlying NATHANIEL/ obesity hypoventilation syndrome contributing to overall clinical picture - recommend outpatient sleep study - 2 Step on day of discharge to assess O2 needs - Will need PCP follow up to ensure UTD on routine cancer screening. Cognitive decline/ambulatory dysfunction: - Has been concern in the past (see 10/08/20 Endocrinology note for example) regarding patient's ability to take her medications appropriately at home, either secondary to dementia or psychiatric illness. -- Has a ed case manager through [employer]; has aids every other day - Also noted in several EMR provider notes to have ambulatory dysfunction, including admission August 2020 for ambulatory dysfunction with ultimate discharge to acute rehab. - States she can get some dizziness with standing - possibly some orthostasis contributing? - Case Management consulted Conjunctivitis: - Noted on exam to have left eye erythema and mucopurulent drainage consistent with conjunctivitis; also states she wakes up with crusted over eyes - Of note, was seen by Ophthalmology February 2021 for eye redness and tearing and was placed on artificial tears. No evidence of conjunctivitis noted at that time. - Continue polymyxin B/trimethoprim drops q6h to left eye. ? Facial droop: - Presented due to caregiver concern of left sided facial droop. - Not noted to have facial droop per ER provider nor per my exam. L eyelid does drop some; Also without other focal neurologic deficits. - CT Head this admission without acute findings. DM2 Uncontrolled: - A1c 9.6 - Continue basal/bolus insulin. CAD: - Continue Plavix, statin, beta lisette. HTN: - Continue HCTZ. GERD: - Continue PPI. Neuropathy/restless legs syndrome: - Continue pregabalin, ropinirole. Depression/anxiety: - Continue olanzapine, escitalopram. Disposition: - PT recommending rehab - patient is interested in [facility] - will await determination for rehab vs SNF (2) Acute respiratory failure with hypoxia: (3) Cognitive impairment: (4) Type 2 diabetes mellitus, with long-term current use of insulin: (5) Hypertension: (6) Depression: (7) Anxiety: (8) Coronary artery disease: (9) Asthma: (10) GERD (gastroesophageal reflux disease): (11) Restless leg syndrome: Admission and Anticipated Discharge Date Admission Date: April 08, 2021 Subjective No acute events overnight. States she feels better today compared to yesterday. She feels she is weak but feels she worked a bit better with the second therapist since she was up and moving. She reports she just gets stiff pretty quick and needs a bit of time to get moving. She reports no chest pain. She reports she was supposed to have a sleep study in the past but she reports never going to it. She thinks she does snore. Review of Systems Review of Systems: All systems reviewed & are unremarkable except as noted in Subjective Physical Exam Physical Exam: PHYSICAL EXAM General Appearance: WDWN in NAD who is A&O x 3 HEENT: Head is normocephalic/atraumatic; Hearing grossly intact; Mucous membranes moist; L eye lid slightly drooped and mildly erythematous Neck: Supple; Trachea midline; Neg JVD Heart: RRR with no M/G/R Lungs: CTA in all lung burch bilaterally; Respirations unlabored; Neg accessory muscle use Abdomen: Soft, non-tender, non-distended; Positive BS x 4 quadrants Extremities: Neg cyanosis or edema Neurological: Speech clear; Gross motor/sensory function intact; Neg focal neurologic deficits Psychiatric: Appropriate mood/affect Skin: Normal Color; Warm/Dry Results & Data Results & Data ([facility]) Vital Signs (Past 12 Hours) Vital Signs Temp Pulse Pulse Resp BP BP Pulse Ox 04/10/21 11:19 36.5 C 74 17 122/77 95 04/10/21 10:21 95 04/10/21 07:45 36.5 C 81 18 149/69 H 93 04/10/21 07:19 73 04/10/21 03:26 36.5 C 76 18 153/69 H 94 PG Care Time/CCT Total # of Minutes Spent Total Time Spent with Patient: Total time spent is greater than 50% in coordination of care (as documented) at patient's floor/unit and/or counseling patient: Coding Level of Care Code 49008 Subseq Hosp Care Lvl 3 Diagnoses Pulmonary embolism I26.99 Acute respiratory failure with hypoxia J96.01 Cognitive impairment R41.89 Type 2 diabetes mellitus, with long-term current use of insulin E11.9; Z79.4 Hypertension I10 Depression F32.9 Anxiety F41.9 Coronary artery disease I25.10 Asthma J45.909 GERD (gastroesophageal reflux disease) K21.9 Restless leg syndrome G25.81
[2021-04-10] MEDS: rOPINIRole HCL 0.25 MG TABLET PO SCH (20:40)
[2021-04-10] MEDS: ATORVASTATIN 40 MG TAB PO SCH (20:41)
[2021-04-11] MEDS ORDERED: cloNIDine HCL 0.3 MG/24 HR TRANSDERM SYS TD SCH (00:30)
[2021-04-11] MEDS: TRIMETHOPRIM/POLYMYXIN B OP SCH ×2 (06:11→09:04)
[2021-04-11 07:41] LABS: Hematocrit (blood only) 44.4 % (37-47); Hemoglobin 14.3 g/dL (12.0-16.0); Mean Corpuscular Hgb Conc 32.2 g/dL (32-36); Mean Corpuscular Volume 93.1 fL (80-100); Mean Platelet Volume 11.3 fL (7.4-10.4); Platelet Count 260 K/uL (130-400); RDW Coefficient of Variation 14.7 % (11.5-14.5); RDW Standard Deviation 49.9 fL (36.4-46.3); Red Blood Count 4.77 M/uL (4.2-5.4); White Blood Count 10.33 K/uL (4.8-10.8)
[2021-04-11] MEDS ORDERED: CHECK CLONIDINE PATCH PLACEMENT SCH ×2 (08:00)
[2021-04-11 08:07] LABS: BUN Creatinine Ratio 30.3 (10-20); Calcium 8.3 mg/dl (8.5-10.1); Creatinine Clr Calc Pharmacy 50.6 ml/min; Est GFR (African American) 72.5 ml/min; Est GFR (Non-African American) 62.5 ml/min; Potassium 3.3 mmol/L (3.5-5.1)
[2021-04-11] MEDS: INSULIN ASPART PER UNIT SC SCH ×2 (08:56→12:13)
[2021-04-11] MEDS: INSULIN GLARGINE SOLOSTAR 100 UNITS/ML 3 ML PEN SC SCH (08:57)
[2021-04-11] MEDS: PREGABALIN 100 MG CAP PO SCH (08:58)
[2021-04-11] MEDS: CLOPIDOGREL BISULFATE 75 MG TAB PO SCH (08:59)
[2021-04-11] MEDS: FAMOTIDINE 20 MG TAB PO SCH (08:59)
[2021-04-11] MEDS: hydroCHLOROthiazide 25 MG TAB PO SCH (08:59)
[2021-04-11] MEDS: PANTOprazole 40 MG TAB PO SCH (08:59)
[2021-04-11] MEDS: METOPROLOL TARTRATE 50 MG TAB PO SCH (08:59)
[2021-04-11] MEDS: RIVAROXABAN 15 MG TAB PO SCH (09:00)
[2021-04-11] MEDS: ESCITALOPRAM OXALATE 10 MG TAB PO SCH (09:00)
[2021-04-11] MEDS: OLANZapine 10 MG TAB PO SCH (09:00)
[2021-04-11] MEDS ORDERED: COVID-19 VAC,AD26(JANSSEN)/PF 0.5 ML SYR IM ONE (12:00)
--- NOTE | 2021-04-11 13:54 | Discharge Summary ---
Date of Service April 11, 2021 Admission HPI Per Admitting Provider 75 yo F Hx cognitive decline, CAD, asthma, DM2 on insulin therapy, HTN, HLD, GERD, restless legs syndrome, anxiety, depression presented to the ER due to concern from caregiver who noted a possible left facial droop today. Last known well yesterday. In the ER patient was noted to be mildly tachycardia to 100s, and hypoxic to 88% on room air with no baseline oxygen requirement. ER provider did not note any focal neurologic deficits including a facial droop. CT head was performed which did not show any signs of stroke. Lab work notable for D-dimer elevated to 1040. COVID-19 negative. Patient was started on a heparin drip and hospitalist service was consulted for admission. Patient reports that over the last several days she has been "huffing and puffing more", and has had a few episodes of sweating the bed. Does have a remote history of a cancer and is s/p hysterectomy several years ago. Feels more comfortable and less short of breath on 2LNC at this time. Otherwise no stated complaints. Principal Diagnosis Acute Hypoxic Respiratory Failure due to Pulmonary Embolism Discharge Exam PHYSICAL EXAM General Appearance: WDWN in NAD who is A&O x 3 HEENT: Head is normocephalic/atraumatic; Hearing grossly intact; Mucous membranes moist; L eye lid slightly drooped and mildly erythematous Neck: Supple; Trachea midline; Neg JVD Heart: RRR with no M/G/R Lungs: CTA in all lung burch bilaterally; Respirations unlabored; Neg accessory muscle use Abdomen: Soft, non-tender, non-distended; Positive BS x 4 quadrants Extremities: Neg cyanosis or edema Neurological: Speech clear; Gross motor/sensory function intact; Neg focal neurologic deficits Psychiatric: Appropriate mood/affect Skin: Normal Color; Warm/Dry Discharge Data Allergies Allergy/AdvReac Type Severity Reaction Status Date / Time ceftriaxone Allergy Unknown PARESTHESIA Verified 04/08/21 20:27 amoxicillin AdvReac Mild Gastrointestinal Verified 04/08/21 20:27 Upset aspirin AdvReac Mild Gastrointestinal Verified 04/08/21 20:27 Upset clavulanic acid AdvReac Mild Gastrointestinal Verified 04/08/21 20:27 Upset codeine AdvReac Mild INTOLERANCE Verified 04/08/21 20:27 STERIODS Allergy Severe RIGHT Uncoded 04/08/21 20:27 SIDED PARALYSIS Consultations 04/08/21 20:46 ED Decision to Admit Stat Ordered Studies Head CT 04/08/21 18:[address] DOSE: HISTORY: L sided facial droop TECHNIQUE: Multiaxial CT images of the head were performed without the use of intravenous contrast. Automated exposure control was utilized for this study. A dose lowering technique was utilized adhering to the principles of ALARA. Comparison: Head CT 09/04/2020. Findings: The paranasal sinuses and mastoid air cells are clear. The calvarium and skull base are intact. There is no mass, hematoma, midline shift, acute infarct. White matter hypodensity is nonspecific but suggestive of microvascular ischemic change. The ventricles and sulci demonstrate mild age-related involutional changes. Impression: No significant change compared to the prior study. No acute intracranial abnormality. ACT 112: Negative or not required by law. Electronically signed by: Saurabh Cole M.D. 04/08/2021 8:24 PM Chest X-Ray 04/08/21 19:37 XR chest 1V portable HISTORY: Shortness of breath. COMPARISON: Chest 08/09/2020. FINDINGS: No pneumothorax. No pleural effusions. There are low lung volumes. The heart remains mildly enlarged. No focal lung consolidations to suggest pneumonia. No evidence for pulmonary edema. There is mild elevation of the right hemidiaphragm, unchanged. Calcifications within the aortic knob are again noted. Degenerative changes within the bilateral shoulders persist. IMPRESSION: No significant change compared to the prior study. No acute process. Stable mild cardiomegaly. ACT 112: Negative or not required by law. Electronically signed by: Saurabh Cole M.D. 04/08/2021 7:51 PM Chest CTA 04/08/21 19:53 CHEST CTA for PULMONARY ARTERIES CT DOSE: 1371.33 mGy.cm HISTORY: Covid positive. Shortness of breath. TECHNIQUE: Multiaxial CT images of the chest were performed following the intravenous administration of contrast to evaluate the pulmonary arteries. Maximal intensity projection images were also obtained. A dose lowering technique was utilized adhering to the principles of ALARA. COMPARISON STUDY: Chest CT 11/17/2019. FINDINGS: Mild anterior wedging at T7, unchanged. This is likely chronic. Partially visualized 1.2 cm low-density nodule within the right adrenal gland. Therefore, this favors a benign adenoma. The visualized liver and spleen are unremarkable. There is a small hiatus hernia. Otherwise, normal caliber esophagus. The thyroid gland enhances normally. The heart remains top normal in size. No pleural or pericardial effusions. No mediastinal or hilar lymphadenopathy. Normal caliber thoracic aorta with no evidence for dissection. Mild calcified plaque within the aortic arch and coronary arteries. A few small filling defects seen within the right lower lobe segmental/subsegmental pulmonary arteries consistent with pulmonary emboli. The remaining pulmonary arteries are patent. No evidence for right-sided heart strain. No suspicious lytic or blastic osseous lesions. No pneumothorax. The central airways are patent. Mild elevation of the right hemidiaphragm, unchanged. A few bibasilar linear densities consistent with subsegmental atelectasis. No focal lung consolidations to suggest pneumonia or a pulmonary infarct. IMPRESSION: 1. A few small right lower lobe segmental/subsegmental pulmonary emboli. 2. No evidence for right-sided heart strain. 3. Small hiatus hernia. 4. No focal lung consolidations to suggest pneumonia. ACT 112: Negative or not required by law. Electronically signed by: Saurabh Cole M.D. 04/08/2021 8:35 PM Venous Doppler Study 04/08/21 22:15 BILATERAL LOWER EXTREMITY VENOUS DOPPLER HISTORY: Acute pain and swelling of the legs PE COMPARISON STUDY: CTA chest of same day FINDINGS: There is normal compressibility, flow, and augmentation within the bilateral lower extremity deep venous systems. IMPRESSION: No DVT within the right or left lower extremity. ACT 112: Negative or not required by law. Electronically signed by: Silverio Smith M.D. 04/09/2021 6:46 AM Diabetes Follow up Diabetes Follow-up Needed for HgbA1c >9% Hospital Course (1) Pulmonary embolism: 75 yo F Hx cognitive decline, CAD, asthma, DM2 on insulin therapy, HTN, HLD, GERD, restless legs syndrome, anxiety, depression admitted for acute hypoxic respiratory failure 2/2 pulmonary emboli. Acute hypoxic respiratory failure/pulmonary emboli: - Presented with SpO2 88% on room air and tachycardic, no baseline oxygen requirement. D dimer elevated. - CTA Chest revealed several small RLL segmental and subsegmental PEs without evidence of right heart strain, no pneumonia or masses. -- BNP and troponin negative and can defer echocardiogram at this time - Given patient's minimal ambulation during the day, would label this event possibly as provoked. Bilateral LE duplex - negative for subsequent DVT - Started on Heparin gtt and converted to Xarelto - checked and is covered by insurance -- Xarelto 15 mg BID x 21 days (04/29) then change to 20 mg daily on 04/30 - Goal SpO2 > 90% -- continue to wean O2 -- Given body habitus and likely NATHANIEL she will probably desaturate at night - Suspect patient may have underlying NATHANIEL/ obesity hypoventilation syndrome contributing to overall clinical picture - recommend outpatient sleep study - 2 Step prior to leaving rehab to assess O2 needs - Will need PCP follow up to ensure UTD on routine cancer screening. Cognitive decline/ambulatory dysfunction: - Has been concern in the past (see 10/08/20 Endocrinology note for example) regarding patient's ability to take her medications appropriately at home, either secondary to dementia or psychiatric illness. -- Has a caseworker intake through [email or web address]; has aids every other day - Also noted in several EMR provider notes to have ambulatory dysfunction, including admission August 2020 for ambulatory dysfunction with ultimate discharge to acute rehab. - Case Management consulted Conjunctivitis: - Noted on exam to have left eye erythema and mucopurulent drainage consistent with conjunctivitis; also states she wakes up with crusted over eyes - Of note, was seen by Ophthalmology February 2021 for eye redness and tearing and was placed on artificial tears. No evidence of conjunctivitis noted at that time. - Continue polymyxin B/trimethoprim drops q6h to left eye. ? Facial droop: - Presented due to caregiver concern of left sided facial droop. - Not noted to have facial droop per ER provider nor per my exam. L eyelid does drop some; Also without other focal neurologic deficits. - CT Head this admission without acute findings. DM2 Uncontrolled: - A1c 9.6 - Continue insulin regimen CAD: - Continue Plavix, statin, beta lisette. HTN: - Continue HCTZ. GERD: - Continue PPI. Neuropathy/restless legs syndrome: - Continue pregabalin, ropinirole. Depression/anxiety: - Continue olanzapine, escitalopram. Disposition: - PT recommending rehab - patient is interested in [facility] (2) Acute respiratory failure with hypoxia: (3) Cognitive impairment: (4) Type 2 diabetes mellitus, with long-term current use of insulin: (5) Hypertension: (6) Depression: (7) Anxiety: (8) Coronary artery disease: (9) Asthma: (10) GERD (gastroesophageal reflux disease): (11) Restless leg syndrome: Total Time Total Time Spent Total Time Spent (In Minutes): Spent greater than 30 minutes preparing patient for discharge. This includes discussion with patient/family, assessment, intervention, medication reconciliation, and coordination of care. Discharge Plan Discharge Items Patient Disposition: Transfer Inpatient Rehab Fac Reason For Visit: ACUTE HYPOXIC RESPIRATORY FAILURE, PE Discharge Diagnosis: Acute Hypoxic Respiratory Failure due to Pulmonary Embolism Activity: Resume your previous activity Non-emergency contact: Primary Care Provider Call non-emergency contact if: you have any medication questions, your symptoms worsen and you have a fever Follow-up/Referrals: Lewis Villa III, CRNP [Primary Care Provider] - Diet: Carb Consistent or DM2 Addtl Attending Provider Instructions: 75 yo F Hx cognitive decline, CAD, asthma, DM2 on insulin therapy, HTN, HLD, GERD, restless legs syndrome, anxiety, depression admitted for acute hypoxic respiratory failure 2/2 pulmonary emboli. Acute hypoxic respiratory failure/pulmonary emboli: - Presented with SpO2 88% on room air and tachycardic, no baseline oxygen requirement. D dimer elevated. - CTA Chest revealed several small RLL segmental and subsegmental PEs without evidence of right heart strain, no pneumonia or masses. -- BNP and troponin negative and can defer echocardiogram at this time - Given patient's minimal ambulation during the day, would label this event possibly provoked. Bilateral LE duplex - negative for subsequent DVT - Continue on Xarelto - checked and is covered by insurance -- Xarelto 15 mg BID x 21 days (04/29) then changed to 20 mg daily on 04/30 for at least 3-6 months - Goal SpO2 > 90% -- continue to wean O2 -- Given body habitus and likely NATHANIEL she will probably desaturate at night - Suspect patient may have underlying NATHANIEL/ obesity hypoventilation syndrome contributing to overall clinical picture - recommend outpatient sleep study - Would recommend 2-step prior to discharge to determine home oxygen needs - Will need PCP follow up to ensure UTD on routine cancer screening. Cognitive decline/ambulatory dysfunction: - Has been concern in the past (see 08/02/21 Endocrinology note for example) regarding patient's ability to take her medications appropriately at home, either secondary to dementia or psychiatric illness. -- Has a caseworker intake through [employer]; has aids every other day - Also noted in several EMR provider notes to have ambulatory dysfunction, including admission August 2020 for ambulatory dysfunction with ultimate discharge to acute rehab. - Seems endurance is limited and not sure how active she is at home Conjunctivitis: - Noted on exam to have left eye erythema and mucopurulent drainage consistent with conjunctivitis; also states she wakes up with crusted over eyes -- improving - Of note, was seen by Ophthalmology February 2021 for eye redness and tearing and was placed on artificial tears. No evidence of conjunctivitis noted at that time. - Continue polymyxin B/trimethoprim drops q6h to left eye. ? Facial droop: - Presented due to caregiver concern of left sided facial droop. - Not noted to have facial droop per ER provider nor per my exam. L eyelid does drop some only; Also without other focal neurologic deficits. - CT Head this admission without acute findings. DM2 Uncontrolled: - A1c 9.6 - Continue her home regimen but could increase given her A1c or use facility protocol -- We have been using Lantus 30 untis BID and sliding scale with control around 120-200 CAD: - Continue Plavix, statin, beta lisette. HTN: - Continue HCTZ. GERD: - Continue PPI. Neuropathy/restless legs syndrome: - Continue pregabalin, ropinirole. Depression/anxiety: - Continue olanzapine, escitalopram. Disposition: - Will need PCP follow-up on discharge from rehab - Determine O2 needs prior to D/C - Consider outpatient sleep study Pending Studies at Discharge: No Stand-Alone Forms: My [facility] [address] Skilled Items Patient informed of condition?: Yes DNR: No Discharge Level of Care: Acute rehab Communicable Disease: No Discharge Prognosis: Stable Lines: None Urinary Catheter: No Medications and DC Order Prescriptions: New Xarelto 15 mg Tablet 15 mg PO BIDM Qty: 37 RF: 0 Continued Medication Management 1 ea .Route .week Qty: 1 RF: 0 pregabalin 100 mg capsule 100 mg PO BID Qty: 60 RF: 5 albuterol sulfate [Ventolin HFA] 90 mcg/actuation HFA aerosol inhaler 1 puff INHALATION Q6H PRN (Reason: Shortness Of Breath Or Wheezing) Qty: 6.7 RF: 1 Hold Instructions: pt has not picked up from pharm in over year atorvastatin [Lipitor] 40 mg tablet 40 mg PO HS Qty: 90 RF: 1 Hold Instructions: pt never picked up from pharmacy clopidogrel [Plavix] 75 mg tablet 75 mg PO QAM Qty: 90 RF: 2 Hold Instructions: pt has never picked up from pharmacy escitalopram oxalate 10 mg tablet 10 mg PO QAM Qty: 90 RF: 1 famotidine 20 mg tablet 20 mg PO BID Qty: 60 RF: 5 Hold Instructions: last dispensed 12/2019, 90 days hydrochlorothiazide 25 mg tablet 25 mg PO BID Qty: 180 RF: 1 magnesium 250 mg tablet 250 mg PO QAM Qty: 90 RF: 1 Bystolic 10 mg tablet 10 mg PO QAM Qty: 90 RF: 1 Hold Instructions: last dispensed 12/2019, 90 day olanzapine 10 mg tablet 10 mg PO BID Qty: 180 RF: 1 pantoprazole 40 mg tablet,delayed release (DR/EC) 40 mg PO BID Qty: 180 RF: 3 Hold Instructions: last dispensed 12/2019 ropinirole 0.25 mg tablet 0.25 mg PO HS Qty: 30 RF: 5 clonidine 0.3 mg/24 hr patch weekly 1 patch transdermal WK RF: 0 multivitamin Tablet 1 tab PO QAM RF: 0 No Action (DME) OneTouch Verio test strips Strip See Rx Instructions .Route Qty: 300 RF: 3 insulin aspart U-100 [Novolog Flexpen U-100 Insulin] 100 unit/mL (3 mL) insulin pen 8 unit SQ TID 30 Days Qty: 15 RF: 5 Hold Instructions: last dispensed 11/2019 90 day supply Basaglar KwikPen U-100 Insulin 100 unit/mL (3 mL) insulin pen 54 unit SQ HS Qty: 30 RF: 5 Hold Instructions: last dispensed 12/2019 90 day (DME) lancets [OneTouch Delica Plus Lancet] 33 gauge misc See Rx Instructions .Route Qty: 300 RF: 3 (DME) pen needle, diabetic [BD Ultra-Fine Ashley Pen Needle] 32 gauge x 5/32" needle See Rx Instructions .Route Qty: 400 RF: 3 Discharge Orders: Discharge Order (Routine); Ordered 04/11/21 Ordered By: Valentine Cortes/Other Patient Handouts: Managing Type 2 Diabetes, Special [facility] for Diabetes Admission Data Admit Date/Time: 04/08/21 21:34 Attending Provider: Kapil Finn Admit Provider: Jasmin Newton Primary Care Provider: Lewis Villa III Other Providers: Norberto Solorzano ; [facility] Other Interventions: Discharge Summary Assessment (RN) Last Done: 04/11/21 12:57 Supervising Physician Co-Signing Physician Notes Attending note: patient seen and examined with Valentine Nieves PA-C. I agree with her discharge summary. I personally reviewed the labs and imaging findings. patient doing well, breathing easy, no chest pain, vitals stable, eating well - Pulmonary emboli: stable on Xarelto, will discharge on 15mg BID x 21 days then 20mg daily will go to rehab as she is too weak to go home Coding Level of Care Code D/C DAY MANAGEMENT >30 MINS Diagnoses Pulmonary embolism I26.99 Acute respiratory failure with hypoxia J96.01 Cognitive impairment R41.89 Type 2 diabetes mellitus, with long-term current use of insulin E11.9; Z79.4 Hypertension I10 Depression F32.9 Anxiety F41.9 Coronary artery disease I25.10 Asthma J45.909 GERD (gastroesophageal reflux disease) K21.9 Restless leg syndrome G25.81
== END 2021-04-11 16:08 | DRG 175 ==
LOC: ED 18:12 → SUATTDRO 21:34 → 2N 21:34

== ENCOUNTER 2021-07-03 14:45 | Inpatient (IN) ==
[2021-07-03] MEDS ORDERED: ASPIRIN CHEW 324 MG PO STA (16:08)
--- NOTE | 2021-07-03 16:29 | XRay Report ---
XR chest 1V portable CLINICAL HISTORY: Chest Pain. COMPARISON STUDY: 04/08/2021 TECHNIQUE: 1 view of the chest FINDINGS: Single frontal view of the chest demonstrates the cardiomediastinal silhouette to be within normal li mits. There is again asymmetric elevation of the right hemidiaphragm. The lungs are clear of alveolar opacities. There is no evidence for pleural effusion. There is no evidence for vascular congestion. There is no acute osseous pathology. IMPRESSION: 1. No acute cardiopulmonary disease. ACT 112: Negative or not required by law. Electronically signed by: Benitez Bee M.D. 07/03/2021 4:28 PM
[2021-07-03 16:40] LABS: Hematocrit (blood only) 42.3 % (37-47); Hemoglobin 13.8 g/dL (12.0-16.0); Mean Corpuscular Hemoglobin 30.3 pg (25-34); Mean Corpuscular Hgb Conc 32.6 g/dL (32-36); Platelet Count 286 K/uL (130-400); RDW Coefficient of Variation 14.8 % (11.5-14.5); RDW Standard Deviation 50.5 fL (36.4-46.3); Red Blood Count 4.55 M/uL (4.2-5.4); White Blood Count 11.93 K/uL (4.8-10.8)
[2021-07-03 16:46] LABS: Partial Thromboplastin Ratio 0.8; Partial Thromboplastin Time 23.1 Seconds (21.0-31.0); Prothrombin Time 10.8 Seconds (9.0-12.0)
[2021-07-03 16:52] LABS: BUN Creatinine Ratio 18.5 (10-20); Calcium 8.8 mg/dl (8.5-10.1); Creatinine Clr Calc Pharmacy 48.2 ml/min; Est GFR (African American) 69.1 ml/min; Est GFR (Non-African American) 59.6 ml/min; Magnesium 1.1 mg/dl (1.7-2.4); Potassium 3.3 mmol/L (3.5-5.1)
[2021-07-03 17:04] LABS: Base Excess VBG 9.9 mEq/L; Oxygen Saturation VBG 66.8 %; pH VBG 7.4 (7.36-7.41)
--- NOTE | 2021-07-03 17:13 | Electrocardiogram Report ---
Test Reason : Blood Pressure : / mmHG Vent. Rate : 068 BPM Atrial Rate : 068 BPM P-R Int : 154 ms QRS Dur : 082 ms QT Int : 424 ms P-R-T Axes : 050 -09 036 degrees QTc Int : 450 ms Normal sinus rhythm Poor R wave progression, consider anterior LA vs. lead placement vs. LVH Nonspecific T wave abnormality Abnormal ECG When compared with ECG of 08-APR-2021 18:43, Questionable change in initial forces of Lateral leads Confirmed by Darrell Thomas ([id number]) on 07/03/2021 5:13:32 PM Referred By: Confirmed By:Darrell Thomas
[2021-07-03] MEDS ORDERED: OPTIRAY 320 125ml IV ONE (17:25)
[2021-07-03 17:27] LABS: Basophils # (auto) 0.03 K/uL (0-0.2); Basophils % (auto) 0.3 %; Eosinophils # (auto) 0.14 K/uL (0-0.5); Eosinophils % (auto) 1.2 %; Immature Granulocytes # (auto) 0.03 K/uL (0.00-0.02); Immature Granulocytes % (auto) 0.3 %; Lymphocytes # (auto) 5.37 K/uL (1.2-3.4); Monocytes # (auto) 0.64 K/uL (0.11-0.59); Monocytes % (auto) 5.4 %; Neutrophils # (auto) 5.72 K/uL (1.4-6.5); Neutrophils % (auto) 47.8 %; Polychromasia 1+
--- NOTE | 2021-07-03 17:37 | CT Scan Report ---
CT OF THE HEAD WITHOUT CONTRAST CLINICAL HISTORY: Altered mental status. COMPARISON STUDY: Head CT April 08, 2021. TECHNIQUE: Helical axial images of the head were obtained without IV contrast. Automated exposure con trol was utilized for the study. A dose lowering technique was utilized adhering to the principles o f ALARA. FINDINGS: No acute intracranial hemorrhage, midline shift or mass effect is present. White matter hyp odensities are unchanged and suggest small vessel disease. The ventricular system is unremarkable. Th e basal cisterns are patent. No extra-axial collections are present. There are no findings to suggest acute dural sinus thrombosis or acute territorial infarct. No significant calvarial abnormalities ar e present. Visualized portions of the sinuses and mastoid air cells are clear. IMPRESSION: No acute intracranial findings. No change in appearance of the brain. ACT 112: Negative or not required by law. Electronically signed by: Jose Carlos Pérez M.D. 07/03/2021 5:36 PM
--- NOTE | 2021-07-03 17:47 | CT Scan Report ---
CT ANGIOGRAPHY OF THE CHEST, PULMONARY EMBOLUS PROTOCOL CLINICAL HISTORY: Altered mental status. COMPARISON STUDY: Chest CT April 08, 2021. Chest radiograph performed earlier today. TECHNIQUE: Following IV administration of 120 mL of Optiray, helical axial images of the chest were o btained utilizing the pulmonary embolus protocol. Maximal intensity projections and sagittal and cor onal reformats were viewed on an independent 3D workstation. IV contrast was administered without co mplication. Automated exposure control was utilized for the study. A dose lowering technique was ut ilized adhering to the principles of ALARA. CT DOSE: 1658.73 mGy.cm FINDINGS: No acute pulmonary emboli are identified. Linear density within the right lower lobe pulmo nary artery is similar to prior exam. This favors represent chronic thrombus. The acute pulmonary emb tamiko shown on prior exam are no longer identified although the lower lobe subsegmental pulmonary arter ies are suboptimally assessed due to respiratory motion. No thoracic aortic dissection. Cardiomegaly is again noted. There is no pericardial effusion. No thoracic lymphadenopathy is present. There is no consolidation to suggest pneumonia. Lungs are suboptimally assessed due to respiratory motion. Subpl eural opacities favor atelectasis. Low-attenuation right adrenal nodule is unchanged from earlier exa ms. This reflects an adenoma. Mild T7 compression deformity is unchanged. IMPRESSION: 1. No acute pulmonary emboli identified although lower lobe subsegmental pulmonary arteries suboptima lly assessed due to respiratory motion. 2. 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 3. Cardiomegaly. 4. Groundglass opacities suggestive of atelectasis. No consolidation to suggest pneumonia. ACT 112: Negative or not required by law. Electronically signed by: Jose Carlos Pérez M.D. 07/03/2021 5:44 PM
[2021-07-03] MEDS: MAGNESIUM SULFATE / D5W 1 GM/100 ML BAG IV SCH ×2 (18:24→19:47)
--- NOTE | 2021-07-03 18:47 | History & Physical Report ---
Date of Service July 03, 2021 Assessment & Plan (1) Acute respiratory failure with hypoxia: Plan: - 88% on room air, now 98% on 2 L. No oxygen requirement at home, however during last admission (04/08) she had similar O2 sats, at that time she had PEs and treated with Heparin initially, transitioned to Xarelto, she continued to improve but still required O2 on d/c, so it was recommend she have a two-step test following discharge to evaluate need for home O2. This did happen, as ordered by her PCP, 6-minute walk test in his office for SPO2 of 87%. Unfortunately the oxygen component was not completed. - Continue on supplemental oxygen as needed, with goal to titrate down. Suspect he may have underlying NATHANIEL or obesity hypoventilation syndrome which contributes to her outs. - BNP 25, HS troponin x2 < 14. - Flu/COVID/RSV pending. - vBG: pCO2 61, pH 7.41, pO2 37, bicarb 37, AG 7 - 2 step test here before discharge so she may be sent home with O2? (2) Hypokalemia: Plan: - 3.3 in ED, replete and recheck in AM. (3) Hypomagnesemia: Plan: - 1.1, replete and recheck in AM. (4) Leukocytosis: Plan: - WBC 11.93, lactate 1.5, procalcitonin pending. - No obvious source of infection account for elevated WBC, she does have some erythema tenderness to palpation of the left and right great toe, states it is due to ingrown toenails and she is being managed for this outpatient. (5) Coronary artery disease: Plan: - Stable, no acute needs today. - Continue Plavix, statin, beta-lisette. (6) Hypertension: Plan: - Continue HCTZ 25 mg BID, nebivolol 10 mg daily. - Clonidine transdermal patch on Sundays. (7) Diabetes mellitus type 2, uncontrolled: Plan: - He has a glucose 310. Per PCP note from 04/25, patient supposed be taking 28 units twice daily, however she was only taking 24 units once daily then. States she has been without her medications for the past week due to trouble picking them up from pharmacy, however states she has been taking her insulin regularly. Prior diabetes visit on 07/01, there is obvious issues concerning patient's insulin regimen. - We will continue with basal insulin 28 units twice daily with 10 units with meals, sliding scale insulin as needed. - Accu-Cheks ACHS. - HH/CC diet. - Continue pregabalin for neuropathy. (8) Dyslipidemia: Plan: - Continue atorvastatin 40 mg at night. (9) GERD (gastroesophageal reflux disease): Plan: - Continue Protonix 40 mg BID + Pepcid 20 mg BID. (10) Asthma: Plan: - Continue albuterol Q6h PRN. (11) Cognitive impairment: Plan: - Has been concern in the past regarding patient's ability to take her medications appropriately at home, either secondary to dementia or psychiatric illness. - Patient states she has been without medications for the past week because they have been at the pharmacy, although no one has been able to pick them up for her. 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 - Case Management will be consulted. (12) History of pulmonary embolus (PE): Plan: - Diagnosed on admission 04/08, DC'd on Xarelto, has not been on this for at least the past week due to not being able to get her medications from pharmacy. - CTA today: No acute pulmonary emboli identified although lower lobe subsegmental pulmonary arteries suboptimally assessed due to respiratory motion. 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 - Restart Xarelto. (13) Depression: Plan: Continue olanzapine and escitalopram. (14) Anxiety: (15) Restless leg syndrome: Plan: - Continue pregabalin, ropinirole. Plan: - Admit to Med/tele. - SCDs, Xarelot for DVT ppx. - Full Code. History of Present Illness Chief Complaint: hyperglycemia Primary Care Provider: Lewis Villa, III, ASHUTOSH Ms. Mccabe is a 76-year-old female with a past medical history significant for cognitive decline, CAD, asthma, DM2 on insulin therapy, HTN, HLD, GERD, restless legs syndrome, anxiety, depression who presented to the ED today at the suggestion of her home demonstrator due to elevated blood sugars.Per patient, her reading today was greater than 400 on the machine, therefore EMS was called by her home demonstrator for evaluation.Patient states she has been feeling woozy at home on and off for the past few weeks, but has had no falls and otherwise without complaints today. She occasionally feels short of breath after activity, but reports this has been ongoing for several months. She has ingrown toe nails on both great toes, she states they are red and have been painful for some time, no acute change. Without fever/chills, pain, weakness, chest pain, palpitations, cough, acute SOB, abdominal pain, nausea, vomiting, diarrhea, constipation, dysuria, increased frequency/urgency, or hematuria. Patient does have some degree of cognitive impairment, but seems to be a somewhat reliable historian. Her home demonstrator was not present at the time of my visit. Of note, per her report, she has been without most or possibly all medications for at least a week because they have been ready for steel pickler at pharmacy, but she has not had anyone available to pick them up. In ED, she is SPO2 88% on room air, 98% on 2L NC, all other vital signs within normal limits and stable. Labs significant for WBC 11.93, potassium 3.3, magnesium 1.1, glucose 275. CXR did not show acute cardiopulmonary disease. CT chest showed no acute pulmonary emboli identified although lower lobe subsegmental pulmonary arteries suboptimally assessed due to respiratory motion. 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 Cardiomegaly. Groundglass opacities suggestive of atelectasis. No consolidation to suggest pneumonia. CT head did not identify acute intracranial findings. No change in appearance of the brain. Allergies Allergy/AdvReac Type Severity Reaction Status Date / Time ceftriaxone Allergy Unknown PARESTHESIA Verified 07/03/21 15:28 amoxicillin AdvReac Mild Gastrointestinal Verified 07/03/21 15:28 Upset aspirin AdvReac Mild Gastrointestinal Verified 07/03/21 15:28 Upset clavulanic acid AdvReac Mild Gastrointestinal Verified 07/03/21 15:28 Upset codeine AdvReac Mild INTOLERANCE Verified 07/03/21 15:28 STERIODS Allergy Severe RIGHT Uncoded 07/03/21 15:28 SIDED PARALYSIS Home Medications Medication Instructions Recorded Confirmed Type multivitamin 1 tab PO QAM 06/29/20 07/03/21 History albuterol sulfate 90 mcg/actuation 1 puff INHALATION Q6H PRN #6.7 g 02/12/21 07/03/21 Rx aerosol inhaler (Ventolin HFA) atorvastatin 40 mg tablet (Lipitor) 40 mg PO HS #90 tab 02/12/21 07/03/21 Rx clopidogrel 75 mg tablet (Plavix) 75 mg PO QAM #90 tab 02/12/21 07/03/21 Rx escitalopram oxalate 10 mg tablet 10 mg PO QAM #90 tab 02/12/21 07/03/21 Rx famotidine 20 mg tablet 20 mg PO BID #60 tab 02/12/21 07/03/21 Rx magnesium 250 mg tablet 250 mg PO QAM #90 tab 02/12/21 07/03/21 Rx nebivolol 10 mg tablet (Bystolic) 10 mg PO QAM #90 tab 02/12/21 07/03/21 Rx olanzapine 10 mg tablet 10 mg PO BID #180 tab 02/12/21 07/03/21 Rx pantoprazole 40 mg tablet,delayed 40 mg PO BID #180 tab 02/12/21 07/03/21 Rx release ropinirole 0.25 mg tablet 0.25 mg PO HS #30 tab 02/12/21 07/03/21 Rx clonidine 0.3 mg/24 hr weekly 1 patch TRANSDERMAL WK 04/11/21 07/03/21 History transdermal patch lancets 33 gauge [facility] 04/15/21 07/01/21 Rx Plus Lancet) pen needle, diabetic 32 gauge x #400 ea 04/15/21 07/01/21 Rx 5/32" (BD Ultra-Fine Ashley Pen Needle) hydrochlorothiazide 25 mg tablet 25 mg PO BID #180 tab 04/22/21 07/03/21 Rx rivaroxaban 20 mg tablet 20 mg PO DAILY #90 tab 05/08/21 07/03/21 Rx insulin aspart U-100 100 unit/mL 10 unit SQ TID 30 Days #9 ml 05/16/21 07/03/21 Rx (3 mL) subcutaneous pen (Novolog Flexpen U-100 Insulin aspart) insulin glargine 100 unit/mL (3 28 unit SQ BID 90 Days #50.4 ml 05/16/21 07/03/21 Rx mL) subcutaneous pen (Basaglar KwikPen U-100 Insulin) pregabalin 100 mg capsule 100 mg PO BID #60 cap 06/18/21 07/03/21 Rx blood sugar diagnostic (OneTouch #300 ea 07/01/21 07/01/21 Rx Verio test strips) nystatin 100,000 unit/gram topical 1 applic TOPICAL BID PRN 07/03/21 07/03/21 History cream Past Med/Surg History Medical History Acute respiratory failure with hypoxia Anxiety Asthma WELL CONTROLLED Bilateral hearing loss 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 SKIN CANCER Cataract (lens) fragments in eye following cataract surgery, bilateral Cerebrovascular disease Chronic sinusitis Coronary artery disease Depression Diabetes mellitus type 2, uncontrolled Dyslipidemia Exposure to COVID-19 virus GERD (gastroesophageal reflux disease) Hiatal hernia History of colitis History of concussion Hypertension Leukocytosis (Unknown) Low back pain Lumbago Myofascial pain On anticoagulant therapy plavix daily Osteoarthritis Restless leg syndrome Sacroiliitis hx of Surgical History History of arthroscopy of knee History of bilateral tubal ligation History of carpal tunnel release of both wrists History of cataract surgery BILATERAL History of section History of colonoscopy History of esophagogastroduodenoscopy (EGD) (~06/12/10) History of laminectomy LUMBAR History of laparoscopic cholecystectomy History of lumpectomy of right breast (~10/27/14) History of repair of rotator cuff BILATERAL History of total hysterectomy with bilateral salpingo-oophorectomy (BSO) Family History Mother Rheumatoid arthritis Diabetes Lupus Myocardial infarction Hypertension Grandmother (Paternal) Family history of diabetes mellitus Father Thoracic aortic aneurysm (TAA) Lung cancer Hypertension Grandfather (Paternal) Myocardial infarction Uncle Diabetes Sister Hypertension Brother Hypertension Other Breast cancer Cancer FH: cholecystectomy No family history of adverse response to anesthesia Denies family history of Ovarian cancer Prostate cancer Adverse anesthesia outcome Bleeding disorder Colorectal cancer Social History Smoking Status: Former smoker Tobacco Type: Cigarettes Smoking End Date: 26 years ago; Second Hand Exposure: No; Hx Alcohol Use: No Hx Substance Use: No Preferred Language: [place] Citizen Communication Ability: Effective Visual Impairment: No Limitations Hearing Ability: Normal [place] Required: No Beliefs That Will Affect Care: None marital status: Life Partner Current Living Situation: Alone Current Living Situation Comment: Pt. lives alone w/ caregivers current occupational status: retired Other Information That Helps Us Care for You: No Feels Safe at Home: Yes Safety Concerns: Feels Safe At This Time Childhood Exposure to Second-Hand Smoke: No Dental Care, Regularly: Yes Physical Activity Frequency: 1-2 Times per Week Seatbelt Use: always Sunscreen Use: Yes Assistive Devices: Walker Review of Systems Review of Systems: Constitutional: feels "woozy" ?lightheaded intermittently for 2-3 weeks; No fever/chills, weakness, fatigue, myalgias, anorexia, night sweats Eyes: No diplopia, no worsening or blurred vision ENT: normal hearing, no trouble swallowing Respiratory: No cough, sputum, dyspnea at rest or on exertion Cardiovascular: No chest pain, tightness or palpitations Abdomen: No pain, nausea, vomiting, diarrhea or constipation : Denies dysuria, hematuria, increased urgency/frequency, urinary retention Musculoskeletal: No joint pain, calf pain, swelling Neurologic: No weakness, numbness/tingling, or balance problems Psychiatric: No anxiety or depression Skin: No rash or itch Physical Exam Physical Exam: General: awake, alert, no apparent distress, 98% on 2L NC, coversating comfortably without SOB Head: Normocephalic, atraumatic ENT: PERRL, EOMI, no pharyngeal exudate, mucous membranes moist Chest: Clear to auscultation, on room air, no adventitious breath sounds Cardiac: Regular rate and rhythm, no murmur, no JVD, normal peripheral pulses, good capillary refill Abdominal: NABS x 4 quadrants, soft, nontender to palpation, no rebound, guarding or tenderness Extremities: Normal inspection, no peripheral edema or erythema, calfs nontender to palpation Psych: Normal mood and affect Neuro: AAO x 3, strength intact bilaterally and rated 5/5, no motor deficits, speech is clear, no peripheral sensory deficits Skin: erythema of 2 great toes with TTP; otherwise no rash or erythema Results & Data Results & Data ([facility]) Vital Signs (Past 12 Hours) Vital Signs Temp Pulse Resp BP Pulse Ox 07/03/21 17:00 63 19 120/82 98 07/03/21 16:30 77 19 148/65 H 97 07/03/21 15:00 63 19 140/88 95 07/03/21 14:58 37.1 C 68 18 121/75 94 Laboratory Results Abnormal lab results 07/03/21 07/03/21 07/03/21 Range/Units 14:53 15:10 15:10 WBC 11.93 H (4.8-10.8) K/uL RDW Std Deviation 50.5 H (36.4-46.3) fL RDW Coeff of Shahrzad 14.8 H (11.5-14.5) % MPV 12.0 H (7.4-10.4) fL Lymph # (Auto) 5.37 H (1.2-3.4) K/uL [place]aufman # (Auto) 0.64 H (0.11-0.59) K/uL Immature Gran # (Auto) 0.03 H (0.00-0.02) K/uL VBG pCO2 (38-50) mmHg Potassium 3.3 L (3.5-5.1) mmol/L Carbon Dioxide 34 H (21-32) mmol/L Glucose 275 H (70-99(Fasting)) mg/dl POC Glucose 310 H* (70-99) mg/dl Magnesium 1.1 L (1.7-2.4) mg/dl 07/03/21 Range/Units 16:43 WBC (4.8-10.8) K/uL RDW Std Deviation (36.4-46.3) fL RDW Coeff of Shahrzad (11.5-14.5) % MPV (7.4-10.4) fL Lymph # (Auto) (1.2-3.4) K/uL [place]aufman # (Auto) (0.11-0.59) K/uL Immature Gran # (Auto) (0.00-0.02) K/uL VBG pCO2 61 H (38-50) mmHg Potassium (3.5-5.1) mmol/L Carbon Dioxide (21-32) mmol/L Glucose (70-99(Fasting)) mg/dl POC Glucose (70-99) mg/dl Magnesium (1.7-2.4) mg/dl Diagnostic Findings Chest CTA 07/03/21 16:09 CT ANGIOGRAPHY OF THE CHEST, PULMONARY EMBOLUS PROTOCOL CLINICAL HISTORY: Altered mental status. COMPARISON STUDY: Chest CT April 08, 2021. Chest radiograph performed earlier today. TECHNIQUE: Following IV administration of 120 mL of Optiray, helical axial images of the chest were obtained utilizing the pulmonary embolus protocol. Maximal intensity projections and sagittal and coronal reformats were viewed on an independent 3D workstation. IV contrast was administered without complication. Automated exposure control was utilized for the study. A dose lowering technique was utilized adhering to the principles of ALARA. CT DOSE: 1658.73 mGy.cm FINDINGS: No acute pulmonary emboli are identified. Linear density within the right lower lobe pulmonary artery is similar to prior exam. This favors represent chronic thrombus. The acute pulmonary emboli shown on prior exam are no longer identified although the lower lobe subsegmental pulmonary arteries are suboptimally assessed due to respiratory motion. No thoracic aortic dissection. Cardiomegaly is again noted. There is no pericardial effusion. No thoracic lymphadenopathy is present. There is no consolidation to suggest pneumonia. Lungs are suboptimally assessed due to respiratory motion. Subpleural opacities favor atelectasis. Low-attenuation right adrenal nodule is unchanged from earlier exams. This reflects an adenoma. Mild T7 compression deformity is unchanged. IMPRESSION: 1. No acute pulmonary emboli identified although lower lobe subsegmental pulmonary arteries suboptimally assessed due to respiratory motion. 2. 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 3. Cardiomegaly. 4. Groundglass opacities suggestive of atelectasis. No consolidation to suggest pneumonia. ACT 112: Negative or not required by law. Electronically signed by: Jose Carlos Pérez M.D. 07/03/2021 5:44 PM Chest X-Ray 07/03/21 16:09 XR chest 1V portable CLINICAL HISTORY: Chest Pain. COMPARISON STUDY: 04/08/2021 TECHNIQUE: 1 view of the chest FINDINGS: Single frontal view of the chest demonstrates the cardiomediastinal silhouette to be within normal limits. There is again asymmetric elevation of the right hemidiaphragm. The lungs are clear of alveolar opacities. There is no evidence for pleural effusion. There is no evidence for vascular congestion. There is no acute osseous pathology. IMPRESSION: 1. No acute cardiopulmonary disease. ACT 112: Negative or not required by law. Electronically signed by: Benitez Bee M.D. 07/03/2021 4:[address] 07/03/21 16:09 CT OF THE HEAD WITHOUT CONTRAST CLINICAL HISTORY: Altered mental status. COMPARISON STUDY: Head CT April 08, 2021. TECHNIQUE: Helical axial images of the head were obtained without IV contrast. Automated exposure control was utilized for the study. A dose lowering technique was utilized adhering to the principles of ALARA. FINDINGS: No acute intracranial hemorrhage, midline shift or mass effect is present. White matter hypodensities are unchanged and suggest small vessel disease. The ventricular system is unremarkable. The basal cisterns are patent. No extra-axial collections are present. There are no findings to suggest acute dural sinus thrombosis or acute territorial infarct. No significant calvarial abnormalities are present. Visualized portions of the sinuses and mastoid air cells are clear. IMPRESSION: No acute intracranial findings. No change in appearance of the brain. ACT 112: Negative or not required by law. Electronically signed by: Jose Carlos Pérez M.D. 07/03/2021 5:36 PM ECG Additional Comments: Normal sinus rhythm Poor R wave progression, consider anterior DE vs. lead placement vs. LVH Nonspecific T wave abnormality Abnormal ECG When compared with ECG of 08-APR-2021 18:43, Questionable change in initial forces of Lateral leads Confirmed by Darrell Thomas ([id number]) on 07/03/2021 5:13:32 PM Code Status & VTE Plan Code Status Full Code. 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 Patient has had outpatient evaluation and had been undergoing eval for potential home oxygen suspect in the setting of obesity hypoventilation versus sleep apnea. CTA with no evidence of PE, no consolidation suggestive of pneumonia. GGO suspicious for atelectasis. CT head without acute findings. Nondistressed, breathing comfortably on oxygen, pleasant, moderate air movement with bibasilar crackles but no rales on exam. Skin is warm and dry. Agree with management as above. Patient is converted to basal/bolus with glucose checks AC/at bedtime, continue to follow BSG. Xarelto continued, patient has not been able to be on DOAC as unable to take meds at from pharmacy. Case management consulted to help follow and assist with any needs. PG Care Time/CCT Total # of Minutes Spent Total Time Spent with Patient: Total time spent is greater than 50% in coordination of care (as documented) at patient's floor/unit and/or counseling patient: Coding Level of Care Code 17065 Initial Inpt Care Lvl 3 Diagnoses Acute respiratory failure with hypoxia J96.01 Hypokalemia E87.6 Hypomagnesemia E83.42 Cognitive impairment R41.89 Depression F32.9 Anxiety F41.9 Diabetes mellitus type 2, uncontrolled E11.65 Dyslipidemia E78.5 GERD (gastroesophageal reflux disease) K21.9 Asthma J45.909 Coronary artery disease I25.10 Restless leg syndrome G25.81 Hypertension I10 History of pulmonary embolus (PE) Z86.711 Leukocytosis D72.829
[2021-07-03] MEDS ORDERED: POTASSIUM CHLORIDE CRTAB 20 MEQ TABCR PO STA (19:30)
--- NOTE | 2021-07-03 20:05 | Emergency Department Note ---
History of Present Illness General Chief complaint: Dizziness Time Seen by Provider: 07/03/21 16:00 Source: RN notes reviewed History of Present Illness Provider complaint: Dizziness weakness Onset (ago): unknown 76-year-old female presents emergency department for weakness and dizziness. Patient has history of cognitive impairment. 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 Patient not been taking her medications. EMS was called and patient was found to be hypoxic on room air. Home Medications Medication Instructions Recorded Confirmed Type multivitamin 1 tab PO QAM 06/29/20 07/03/21 History albuterol sulfate 90 mcg/actuation 1 puff INHALATION Q6H PRN #6.7 g 02/12/21 07/03/21 Rx aerosol inhaler (Ventolin HFA) atorvastatin 40 mg tablet (Lipitor) 40 mg PO HS #90 tab 02/12/21 07/03/21 Rx clopidogrel 75 mg tablet (Plavix) 75 mg PO QAM #90 tab 02/12/21 07/03/21 Rx escitalopram oxalate 10 mg tablet 10 mg PO QAM #90 tab 02/12/21 07/03/21 Rx famotidine 20 mg tablet 20 mg PO BID #60 tab 02/12/21 07/03/21 Rx magnesium 250 mg tablet 250 mg PO QAM #90 tab 02/12/21 07/03/21 Rx nebivolol 10 mg tablet (Bystolic) 10 mg PO QAM #90 tab 02/12/21 07/03/21 Rx olanzapine 10 mg tablet 10 mg PO BID #180 tab 02/12/21 07/03/21 Rx pantoprazole 40 mg tablet,delayed 40 mg PO BID #180 tab 02/12/21 07/03/21 Rx release ropinirole 0.25 mg tablet 0.25 mg PO HS #30 tab 02/12/21 07/03/21 Rx clonidine 0.3 mg/24 hr weekly 1 patch TRANSDERMAL WK 04/11/21 07/03/21 History transdermal patch lancets 33 gauge (OneTouch Delica #300 ea 04/15/21 07/01/21 Rx Plus Lancet) pen needle, diabetic 32 gauge x #400 ea 04/15/21 07/01/21 Rx 5/32" (BD Ultra-Fine Ashley Pen Needle) hydrochlorothiazide 25 mg tablet 25 mg PO BID #180 tab 04/22/21 07/03/21 Rx rivaroxaban 20 mg tablet 20 mg PO DAILY #90 tab 05/08/21 07/03/21 Rx insulin aspart U-100 100 unit/mL 10 unit SQ TID 30 Days #9 ml 05/16/21 07/03/21 Rx (3 mL) subcutaneous pen (Novolog Flexpen U-100 Insulin aspart) insulin glargine 100 unit/mL (3 28 unit SQ BID 90 Days #50.4 ml 05/16/21 07/03/21 Rx mL) subcutaneous pen (Basaglar KwikPen U-100 Insulin) pregabalin 100 mg capsule 100 mg PO BID #60 cap 06/18/21 07/03/21 Rx blood sugar diagnostic (OneTouch #300 ea 07/01/21 07/01/21 Rx Verio test strips) nystatin 100,000 unit/gram topical 1 applic TOPICAL BID PRN 07/03/21 07/03/21 History cream Allergies Allergy/AdvReac Type Severity Reaction Status Date / Time ceftriaxone Allergy Unknown PARESTHESIA Verified 07/03/21 15:28 amoxicillin AdvReac Mild Gastrointestinal Verified 07/03/21 15:28 Upset aspirin AdvReac Mild Gastrointestinal Verified 07/03/21 15:28 Upset clavulanic acid AdvReac Mild Gastrointestinal Verified 07/03/21 15:28 Upset codeine AdvReac Mild INTOLERANCE Verified 07/03/21 15:28 STERIODS Allergy Severe RIGHT Uncoded 07/03/21 15:28 SIDED PARALYSIS Past Med/Surg History Medical History Acute respiratory failure with hypoxia Anxiety Asthma WELL CONTROLLED Bilateral hearing loss 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 SKIN CANCER Cataract (lens) fragments in eye following cataract surgery, bilateral Cerebrovascular disease Chronic sinusitis Coronary artery disease Depression Diabetes mellitus type 2, uncontrolled Dyslipidemia Exposure to COVID-19 virus GERD (gastroesophageal reflux disease) Hiatal hernia History of colitis History of concussion Hypertension Leukocytosis (Unknown) Low back pain Lumbago Myofascial pain On anticoagulant therapy plavix daily Osteoarthritis Restless leg syndrome Sacroiliitis hx of Surgical History History of arthroscopy of knee History of bilateral tubal ligation History of carpal tunnel release of both wrists History of cataract surgery BILATERAL History of section History of colonoscopy History of esophagogastroduodenoscopy (EGD) (~06/12/10) History of laminectomy LUMBAR History of laparoscopic cholecystectomy History of lumpectomy of right breast (~10/27/14) History of repair of rotator cuff BILATERAL History of total hysterectomy with bilateral salpingo-oophorectomy (BSO) Family History Mother Rheumatoid arthritis Diabetes Lupus Myocardial infarction Hypertension Grandmother (Paternal) Family history of diabetes mellitus Father Thoracic aortic aneurysm (TAA) Lung cancer Hypertension Grandfather (Paternal) Myocardial infarction Uncle Diabetes Sister Hypertension Brother Hypertension Other Breast cancer Cancer FH: cholecystectomy No family history of adverse response to anesthesia Denies family history of Ovarian cancer Prostate cancer Adverse anesthesia outcome Bleeding disorder Colorectal cancer Social History Smoking Status: Former smoker Tobacco Type: Cigarettes Second Hand Exposure: No; Hx Alcohol Use: No Hx Substance Use: No Preferred Language: Turkish Communication Ability: Effective Visual Impairment: No Limitations Hearing Ability: Normal Ski Patrol Officer Required: No Beliefs That Will Affect Care: None marital status: Life Partner Current Living Situation: Alone Current Living Situation Comment: Pt. lives alone w/ caregivers current occupational status: retired Feels Safe at Home: Yes Childhood Exposure to Second-Hand Smoke: No Dental Care, Regularly: Yes Physical Activity Frequency: 1-2 Times per Week Seatbelt Use: always Sunscreen Use: Yes Assistive Devices: Oxygen - Continuous and Walker Review of Systems Unobtainable due to cognitive status Physical Exam Vital Signs Vital Signs - 24 hr 07/03/21 14:58 07/03/21 15:00 07/03/21 16:30 Temperature 37.1 C Temperature Source Oral Pulse Rate 68 63 77 Pulse Rhythm Regular Pulse Strength Normal Respiratory Rate 18 19 19 Respiratory Effort / Characteristics Non-Labored Spontaneous Respiratory Depth Normal Respiratory Pattern Regular Blood Pressure 121/75 140/88 148/65 H Blood Pressure Mean 90 105 92 Blood Pressure Position Lying Pulse Oximetry 94 95 97 Oxygen Delivery Method Nasal Cannula Room Air Oxygen Flow Rate Sepsis Recent Fever Within 48 Hours No Sepsis New/Unexplained Change in Mental Status No Sepsis Action Taken by Nursing No Action Required Oxygen Flow Rate - Titration 2 Pulse Oximetry Post Tiitration 95 07/03/21 17:00 07/03/21 17:31 07/03/21 19:00 Temperature Temperature Source Pulse Rate 63 58 L 60 Pulse Rhythm Pulse Strength Respiratory Rate 19 17 15 Respiratory Effort / Characteristics Respiratory Depth Respiratory Pattern Blood Pressure 120/82 144/82 H 117/67 Blood Pressure Mean 94 102 83 Blood Pressure Position Pulse Oximetry 98 98 98 Oxygen Delivery Method Nasal Cannula Nasal Cannula Oxygen Flow Rate 2 2 Sepsis Recent Fever Within 48 Hours Sepsis New/Unexplained Change in Mental Status Sepsis Action Taken by Nursing Oxygen Flow Rate - Titration Pulse Oximetry Post Tiitration 07/03/21 19:30 Temperature Temperature Source Pulse Rate 60 Pulse Rhythm Pulse Strength Respiratory Rate 14 Respiratory Effort / Characteristics Respiratory Depth Respiratory Pattern Blood Pressure 114/66 Blood Pressure Mean 82 Blood Pressure Position Pulse Oximetry 96 Oxygen Delivery Method Nasal Cannula Oxygen Flow Rate 2 Sepsis Recent Fever Within 48 Hours Sepsis New/Unexplained Change in Mental Status Sepsis Action Taken by Nursing Oxygen Flow Rate - Titration Pulse Oximetry Post Tiitration Physical Exam HENT: Exam performed. -Head: Normocephalic and atraumatic. -Right Ear: External ear normal. No mastoid tenderness. -Left Ear: External ear normal. No mastoid tenderness. -Mouth/Throat: The oropharynx is clear and moist. No trismus in the jaw. No dental abscesses or uvula swelling. No oropharyngeal exudate or tonsillar abscesses. EYES: Conjunctivae and EOM are normal. Pupils are equal, round, and reactive to light. Right eye exhibits no discharge. Left eye exhibits no discharge. No scleral icterus. NECK: Normal range of motion. Neck supple. No JVD present. No spinous process te nderness present. CV: Normal rate, regular rhythm, normal heart sounds and intact distal pulses. There is no peripheral edema. Palpable radial pulses bue. PULM/CHEST: Rhonchi bilaterally -Chest Wall: She exhibits no tenderness. ABD: The abdomen is soft and obese. MUSC/SKEL: Normal range of motion. There is no peripheral edema, tenderness or deformity. NEURO: Motor and sensation grossly intact. Course Course 1600: The patient was evaluated in room B4. A complete history and physical exam was performed Cardiac monitoring: An order was placed for continuous cardiac monitoring. The monitor shows a rate of 70 with sinus rhythm Patient was found to be hypoxic on room air. Supplemental oxygen via nasal cannula was applied to the patient which improved her oxygen saturation EMR reviewed. Patient is supposed to be on Xarelto for history of PE. Patient does not usually wear oxygen. 1800: Vital signs stable on supplemental oxygen via nasal cannula. Labs show low magnesium and low potassium. Magnesium replacement potassium will be replaced. CT of the chest shows no acute PE that is new. Patient will be ad mitted to the [facility] hospitalist team Dr. Maria will be notified. Administered Medications Magnesium Sulfate/Dextrose (Magnesium Sulfate / D5w) 1 gm in 100 mls @ 100 mls/hr IV Q1H BELL Stop: 07/03/21 20:03 Last Infusion: 07/03/21 19:26 Dose: 0 mls/hr Documented by: [id number] Admin: 07/03/21 18:24 Dose: 100 mls/hr Documented by: [id number] Discontinued Medications Aspirin (Aspirin Chew 324 Mg) 324 mg PO NOW STA Stop: 07/03/21 16:09 Last Admin: 07/03/21 16:25 Dose: 324 mg Documented by: [id number] Ioversol (Optiray 320 125ml) 120 ml IV ONCE ONE Stop: 07/03/21 17:26 Last Admin: 07/03/21 17:26 Dose: 120 ml Documented by: [id number] Critical Care Time Critical Care Time: Yes Total Critical Care Time: 40 I have personally spent greater than 40 minutes of critical care time in the direct management of this patient. This includes bedside care, interpretation of diagnostic studies, and testing, discussion with consultants, patient, and family members, and other required patient management activities. This 40 minutes is in excess of all separately billable procedures. Medical Decision Making Laboratory Data Result diagrams: 07/03/21 15:10 07/03/21 15:10 Lab Results 07/03/21 07/03/21 07/03/21 Range/Units 14:53 15:10 15:10 WBC 11.93 H (4.8-10.8) K/uL RBC 4.55 (4.2-5.4) M/uL Hgb 13.8 (12.0-16.0) g/dL Hct 42.3 (37-47) % MCV 93.0 (80-100) fL MCH 30.3 (25-34) pg MCHC 32.6 (32-36) g/dL RDW Std Deviation 50.5 H (36.4-46.3) fL RDW Coeff of Shahrzad 14.8 H (11.5-14.5) % Plt Count 286 (130-400) K/uL MPV 12.0 H (7.4-10.4) fL Immature Gran % (Auto) 0.3 % Neut % (Auto) 47.8 % Lymph % (Auto) 45.0 % [place] % (Auto) 5.4 % Eos % (Auto) 1.2 % Baso % (Auto) 0.3 % Neut # (Auto) 5.72 (1.4-6.5) K/uL Lymph # (Auto) 5.37 H (1.2-3.4) K/uL [place] # (Auto) 0.64 H (0.11-0.59) K/uL Eos # (Auto) 0.14 (0-0.5) K/uL Baso # (Auto) 0.03 (0-0.2) K/uL Immature Gran # (Auto) 0.03 H (0.00-0.02) K/uL Polychromasia 1+ PT 10.8 (9.0-12.0) Seconds INR 1.0 (0.9-1.1) APTT 23.1 (21.0-31.0) Seconds PTT Ratio 0.8 VBG pH (7.36-7.41) VBG pCO2 (38-50) mmHg VBG pO2 mmHg VBG HCO3 mmol/L VBG O2 Saturation % VBG Base Excess mEq/L Barometric Pressure mm/Hg Sodium (136-145) mmol/L Potassium (3.5-5.1) mmol/L Chloride (98-107) mmol/L Carbon Dioxide (21-32) mmol/L Anion Gap (3-11) BUN (6-23) mg/dl Creatinine (0.6-1.2) mg/dl Est Cr Clr Drug Dosing ml/min Est GFR ( Amer) ml/min Est GFR (Non-Af Amer) ml/min BUN/Creatinine Ratio (10-20) Glucose (70-99(Fasting)) mg/dl POC Glucose 310 H* (70-99) mg/dl Lactate (0.4-2.0) mmol/L Calcium (8.5-10.1) mg/dl Magnesium (1.7-2.4) mg/dl Troponin I High Sens (0-14) pg/ml B-Natriuretic Peptide (0-100) pg/ml Lipase (11-82) U/L 07/03/21 07/03/21 07/03/21 Range/Units 15:10 16:43 16:43 WBC (4.8-10.8) K/uL RBC (4.2-5.4) M/uL Hgb (12.0-16.0) g/dL Hct (37-47) % MCV (80-100) fL MCH (25-34) pg MCHC (32-36) g/dL RDW Std Deviation (36.4-46.3) fL RDW Coeff of Shahrzad (11.5-14.5) % Plt Count (130-400) K/uL MPV (7.4-10.4) fL Immature Gran % (Auto) % Neut % (Auto) % Lymph % (Auto) % [place] % (Auto) % Eos % (Auto) % Baso % (Auto) % Neut # (Auto) (1.4-6.5) K/uL Lymph # (Auto) (1.2-3.4) K/uL [place] # (Auto) (0.11-0.59) K/uL Eos # (Auto) (0-0.5) K/uL Baso # (Auto) (0-0.2) K/uL Immature Gran # (Auto) (0.00-0.02) K/uL Polychromasia PT (9.0-12.0) Seconds INR (0.9-1.1) APTT (21.0-31.0) Seconds PTT Ratio VBG pH 7.40 (7.36-7.41) VBG pCO2 61 H (38-50) mmHg VBG pO2 37 mmHg VBG HCO3 37 mmol/L VBG O2 Saturation 66.8 % VBG Base Excess 9.9 mEq/L Barometric Pressure 733.9 mm/Hg Sodium 139 (136-145) mmol/L Potassium 3.3 L (3.5-5.1) mmol/L Chloride 98 (98-107) mmol/L Carbon Dioxide 34 H (21-32) mmol/L Anion Gap 7 (3-11) BUN 17 (6-23) mg/dl Creatinine 0.92 (0.6-1.2) mg/dl Est Cr Clr Drug Dosing 48.2 ml/min Est GFR ( Amer) 69.1 ml/min Est GFR (Non-Af Amer) 59.6 ml/min BUN/Creatinine Ratio 18.5 (10-20) Glucose 275 H (70-99(Fasting)) mg/dl POC Glucose (70-99) mg/dl Lactate (0.4-2.0) mmol/L Calcium 8.8 (8.5-10.1) mg/dl Magnesium 1.1 L (1.7-2.4) mg/dl Troponin I High Sens 8.0 (0-14) pg/ml B-Natriuretic Peptide 25 (0-100) pg/ml Lipase 32 (11-82) U/L 07/03/21 07/03/21 Range/Units 18:05 18:24 WBC (4.8-10.8) K/uL RBC (4.2-5.4) M/uL Hgb (12.0-16.0) g/dL Hct (37-47) % MCV (80-100) fL MCH (25-34) pg MCHC (32-36) g/dL RDW Std Deviation (36.4-46.3) fL RDW Coeff of Shahrzad (11.5-14.5) % Plt Count (130-400) K/uL MPV (7.4-10.4) fL Immature Gran % (Auto) % Neut % (Auto) % Lymph % (Auto) % [place] % (Auto) % Eos % (Auto) % Baso % (Auto) % Neut # (Auto) (1.4-6.5) K/uL Lymph # (Auto) (1.2-3.4) K/uL [place] # (Auto) (0.11-0.59) K/uL Eos # (Auto) (0-0.5) K/uL Baso # (Auto) (0-0.2) K/uL Immature Gran # (Auto) (0.00-0.02) K/uL Polychromasia PT (9.0-12.0) Seconds INR (0.9-1.1) APTT (21.0-31.0) Seconds PTT Ratio VBG pH (7.36-7.41) VBG pCO2 (38-50) mmHg VBG pO2 mmHg VBG HCO3 mmol/L VBG O2 Saturation % VBG Base Excess mEq/L Barometric Pressure mm/Hg Sodium (136-145) mmol/L Potassium (3.5-5.1) mmol/L Chloride (98-107) mmol/L Carbon Dioxide (21-32) mmol/L Anion Gap (3-11) BUN (6-23) mg/dl Creatinine (0.6-1.2) mg/dl Est Cr Clr Drug Dosing ml/min Est GFR ( Amer) ml/min Est GFR (Non-Af Amer) ml/min BUN/Creatinine Ratio (10-20) Glucose (70-99(Fasting)) mg/dl POC Glucose (70-99) mg/dl Lactate 1.5 (0.4-2.0) mmol/L Calcium (8.5-10.1) mg/dl Magnesium (1.7-2.4) mg/dl Troponin I High Sens 7.8 (0-14) pg/ml B-Natriuretic Peptide (0-100) pg/ml Lipase (11-82) U/L Imaging Data Radiologist's Impression: Chest CTA 07/03/21 16:09 CT ANGIOGRAPHY OF THE CHEST, PULMONARY EMBOLUS PROTOCOL CLINICAL HISTORY: Altered mental status. COMPARISON STUDY: Chest CT April 08, 2021. Chest radiograph performed earlier today. TECHNIQUE: Following IV administration of 120 mL of Optiray, helical axial images of the chest were obtained utilizing the pulmonary embolus protocol. Maximal intensity projections and sagittal and coronal reformats were viewed on an independent 3D workstation. IV contrast was administered without complication. Automated exposure control was utilized for the study. A dose lowering technique was utilized adhering to the principles of ALARA. CT DOSE: 1658.73 mGy.cm FINDINGS: No acute pulmonary emboli are identified. Linear density within the right lower lobe pulmonary artery is similar to prior exam. This favors represent chronic thrombus. The acute pulmonary emboli shown on prior exam are no longer identified although the lower lobe subsegmental pulmonary arteries are suboptimally assessed due to respiratory motion. No thoracic aortic dissection. Cardiomegaly is again noted. There is no pericardial effusion. No thoracic lymphadenopathy is present. There is no consolidation to suggest pneumonia. Lungs are suboptimally assessed due to respiratory motion. Subpleural opacities favor atelectasis. Low-attenuation right adrenal nodule is unchanged from earlier exams. This reflects an adenoma. Mild T7 compression deformity is unchanged. IMPRESSION: 1. No acute pulmonary emboli identified although lower lobe subsegmental pulmonary arteries suboptimally assessed due to respiratory motion. 2. 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 3. Cardiomegaly. 4. Groundglass opacities suggestive of atelectasis. No consolidation to suggest pneumonia. ACT 112: Negative or not required by law. Electronically signed by: Jose Carlos Pérez M.D. 07/03/2021 5:44 PM Chest X-Ray 07/03/21 16:09 XR chest 1V portable CLINICAL HISTORY: Chest Pain. COMPARISON STUDY: 04/08/2021 TECHNIQUE: 1 view of the chest FINDINGS: Single frontal view of the chest demonstrates the cardiomediastinal silhouette to be within normal limits. There is again asymmetric elevation of the right hemidiaphragm. The lungs are clear of alveolar opacities. There is no evidence for pleural effusion. There is no evidence for vascular congestion. There is no acute osseous pathology. IMPRESSION: 1. No acute cardiopulmonary disease. ACT 112: Negative or not required by law. Electronically signed by: Benitez Bee M.D. 07/03/2021 4:[address] 07/03/21 16:09 CT OF THE HEAD WITHOUT CONTRAST CLINICAL HISTORY: Altered mental status. COMPARISON STUDY: Head CT April 08, 2021. TECHNIQUE: Helical axial images of the head were obtained without IV contrast. Automated exposure control was utilized for the study. A dose lowering technique was utilized adhering to the principles of ALARA. FINDINGS: No acute intracranial hemorrhage, midline shift or mass effect is present. White matter hypodensities are unchanged and suggest small vessel disease. The ventricular system is unremarkable. The basal cisterns are patent. No extra-axial collections are present. There are no findings to suggest acute dural sinus thrombosis or acute territorial infarct. No significant calvarial abnormalities are present. Visualized portions of the sinuses and mastoid air cells are clear. IMPRESSION: No acute intracranial findings. No change in appearance of the brain. ACT 112: Negative or not required by law. Electronically signed by: Jose Carlos Pérez M.D. 07/03/2021 5:36 PM ECG Data Indication: + SOB/dyspnea and + weakness Rate (beats per minute): 68 Rhythm: + normal sinus ECG Intervals/blocks: + Normal QRS, + Normal [place] and + Normal QT-c ECG ST segments: + Normal ST segments MDM Narrative 1600: The patient was evaluated in room B4. A complete history and physical exam was performed Cardiac monitoring: An order was placed for continuous cardiac monitoring. The monitor shows a rate of 70 with sinus rhythm Patient was found to be hypoxic on room air. Supplemental oxygen via nasal cannula was applied to the patient which improved her oxygen saturation EMR reviewed. Patient is supposed to be on Xarelto for history of PE. Patient does not usually wear oxygen. 1800: Vital signs stable on supplemental oxygen via nasal cannula. Labs show low magnesium and low potassium. Magnesium replacement potassium will be replaced. CT of the chest shows no acute PE that is new. Patient will be admitted to the [facility] hospitalist team Dr. Maria will be notified. Impression & Plan Hypoxia, Hypokalemia, Hypomagnesemia Discharge Plan Visit Data Chief Complaint: Dizziness Discharge Problem: Hypoxia, Hypokalemia, Hypomagnesemia Patient Disposition: Being Evaluated by Hospitalist Forms Stand Alone Forms: My [facility] Prescriptions Prescriptions: No Action albuterol sulfate [Ventolin HFA] 90 mcg/actuation HFA aerosol inhaler 1 puff INHALATION Q6H PRN (Reason: Shortness Of Breath Or Wheezing) Qty: 6.7 RF: 1 Hold Instructions: pt has not picked up from pharm in over year atorvastatin [Lipitor] 40 mg tablet 40 mg PO HS Qty: 90 RF: 1 Hold Instructions: pt never picked up from pharmacy clopidogrel [Plavix] 75 mg tablet 75 mg PO QAM Qty: 90 RF: 2 Hold Instructions: pt has never picked up from pharmacy escitalopram oxalate 10 mg tablet 10 mg PO QAM Qty: 90 RF: 1 famotidine 20 mg tablet 20 mg PO BID Qty: 60 RF: 5 Hold Instructions: last dispensed 12/2019, 90 days magnesium 250 mg tablet 250 mg PO QAM Qty: 90 RF: 1 Bystolic 10 mg tablet 10 mg PO QAM Qty: 90 RF: 1 Hold Instructions: last dispensed 12/2019, 90 day olanzapine 10 mg tablet 10 mg PO BID Qty: 180 RF: 1 pantoprazole 40 mg tablet,delayed release (DR/EC) 40 mg PO BID Qty: 180 RF: 3 Hold Instructions: last dispensed 12/2019 ropinirole 0.25 mg tablet 0.25 mg PO HS Qty: 30 RF: 5 (DME) lancets [OneTouch Delica Plus Lancet] 33 gauge misc See Rx Instructions .Route Qty: 300 RF: 3 (DME) pen needle, diabetic [BD Ultra-Fine Ashley Pen Needle] 32 gauge x 5/32" needle See Rx Instructions .Route Qty: 400 RF: 3 hydrochlorothiazide 25 mg tablet 25 mg PO BID Qty: 180 RF: 1 rivaroxaban 20 mg tablet 20 mg PO DAILY Qty: 90 RF: 1 Basaglar KwikPen U-100 Insulin 100 unit/mL (3 mL) insulin pen 28 unit SQ BID 90 Days Qty: 50.4 RF: 5 Hold Instructions: last dispensed 12/2019 90 day insulin aspart U-100 [Novolog Flexpen U-100 Insulin] 100 unit/mL (3 mL) insulin pen 10 unit SQ TID 30 Days Qty: 9 RF: 5 Hold Instructions: last dispensed 11/2019 90 day supply pregabalin 100 mg capsule 100 mg PO BID Qty: 60 RF: 0 (DME) OneTouch Verio test strips Strip See Rx Instructions .Route Qty: 300 RF: 3 clonidine 0.3 mg/24 hr patch weekly 1 patch transdermal WK RF: 0 nystatin 100,000 unit/gram cream 1 applic topical BID PRN (Reason: Unknown) RF: 0 multivitamin Tablet 1 tab PO QAM RF: 0 Referrals Referrals: Lewis Villa III, CRNP [Primary Care Provider] -
[2021-07-03] MEDS: LACTATED RINGER'S 1,000 ML IV SCH (20:53)
[2021-07-03 21:13] LABS: Influenza A virus by PCR Negative (Neg); Influenza B virus by PCR Negative (Neg); RSV by PCR Negative (Neg); SARS CoV2 RNA(COVID-19) InHosp NEGATIVE (Negative)
[2021-07-03] MEDS ORDERED: GLUCOSE 40% GEL 15 GM TUBE PO PRN (23:19)
[2021-07-03] MEDS ORDERED: ONDANSETRON INJ 2 MG/ML 2 ML VIAL IV PRN (23:19)
[2021-07-03] MEDS ORDERED: GLUCOSE 10 TABS/TUBE PO PRN (23:19)
[2021-07-03] MEDS ORDERED: CARBOHYDRATES FOR HYPOGLYCEMIA PO PRN (23:19)
[2021-07-03] MEDS ORDERED: ALBUTEROL HFA 8 GM INHALER INH PRN (23:19)
[2021-07-03] MEDS ORDERED: DEXTROSE 50% 50 ML SYRINGE IV PRN (23:19)
[2021-07-03] MEDS ORDERED: GLUCAGON FOR INJ 1 MG VIAL SQ PRN (23:19)
[2021-07-03] MEDS ORDERED: NYSTATIN CR 15 GM TUBE EXT PRN (23:19)
[2021-07-03] MEDS ORDERED: POLYETHYLENE (MIRALAX) 17 GM PACK PO PRN (23:19)
[2021-07-03] MEDS: FAMOTIDINE 20 MG TAB PO SCH (23:49)
[2021-07-03] MEDS: ATORVASTATIN 40 MG TAB PO SCH (23:49)
[2021-07-03] MEDS: INSULIN GLARGINE SOLOSTAR 100 UNITS/ML 3 ML PEN SQ SCH (23:50)
[2021-07-03] MEDS: hydroCHLOROthiazide 25 MG TAB PO SCH (23:50)
[2021-07-03] MEDS: PANTOprazole 40 MG TAB PO SCH (23:51)
[2021-07-03] MEDS: OLANZapine 10 MG TAB PO SCH (23:51)
[2021-07-03] MEDS: rOPINIRole HCL 0.25 MG TABLET PO SCH (23:52)
[2021-07-03] MEDS: INSULIN ASPART PER UNIT SC SCH (23:59)
[2021-07-04] MEDS: cloNIDine HCL 0.3 MG/24 HR TRANSDERM SYS TD SCH (01:16)
[2021-07-04] MEDS: CHECK CLONIDINE PATCH PLACEMENT SCH ×3 (01:16→16:54)
[2021-07-04] MEDS: MAGNESIUM SULFATE / D5W 1 GM/100 ML BAG IV SCH ×4 (01:17→06:39)
[2021-07-04 01:50] LABS: Appearance Urine Clear (Clear); Bacteria Urine Automated Negative (Negative); Bilirubin Urine Negative (Negative); Blood Urine Negative (Negative); Color Urine Yellow; Epithelial Cell Urine Auto >30 /lpf (0-5); Glucose Urine UA 3+ (Negative); Ketones Urine Negative (Negative); Leukocyte Esterase Urine 2+ (Negative); Nitrite Urine Negative (Negative); Protein Urine Negative (Negative); RBC Urine Automated 0-4 /hpf (0-4); Specific Gravity Urine > 1.045 (1.000-1.030); Urobilinogen Urine Negative (Negative); WBC Urine Automated >30 /hpf (0-5)
[2021-07-04] MEDS: OLANZapine 10 MG TAB PO SCH ×2 (07:38→20:43)
[2021-07-04] MEDS: PANTOprazole 40 MG TAB PO SCH ×2 (07:38→20:42)
[2021-07-04] MEDS: hydroCHLOROthiazide 25 MG TAB PO SCH ×2 (07:39→16:54)
[2021-07-04] MEDS: FAMOTIDINE 20 MG TAB PO SCH ×2 (07:39→20:41)
[2021-07-04] MEDS: ESCITALOPRAM OXALATE 10 MG TAB PO SCH (07:44)
[2021-07-04] MEDS: CLOPIDOGREL BISULFATE 75 MG TAB PO SCH (07:44)
[2021-07-04] MEDS: MAGNESIUM OXIDE 400 MG TAB PO SCH (07:44)
[2021-07-04] MEDS: METOPROLOL TARTRATE 50 MG TAB PO SCH ×2 (07:44→20:33)
[2021-07-04] MEDS: RIVAROXABAN 20 MG TAB PO SCH (07:44)
[2021-07-04 08:14] LABS: Basophils # (auto) 0.04 K/uL (0-0.2); Basophils % (auto) 0.4 %; Eosinophils # (auto) 0.25 K/uL (0-0.5); Eosinophils % (auto) 2.3 %; Hemoglobin 13.5 g/dL (12.0-16.0); Immature Granulocytes # (auto) 0.02 K/uL (0.00-0.02); Immature Granulocytes % (auto) 0.2 %; Lymphocytes # (auto) 4.32 K/uL (1.2-3.4); Lymphocytes % (auto) 39.7 %; Mean Corpuscular Hemoglobin 30.1 pg (25-34); Mean Corpuscular Hgb Conc 32.1 g/dL (32-36); Mean Corpuscular Volume 93.8 fL (80-100); Mean Platelet Volume 11.4 fL (7.4-10.4); Monocytes # (auto) 0.78 K/uL (0.11-0.59); Monocytes % (auto) 7.2 %; Neutrophils # (auto) 5.46 K/uL (1.4-6.5); Neutrophils % (auto) 50.2 %; Platelet Count 271 K/uL (130-400); RDW Coefficient of Variation 15.2 % (11.5-14.5); RDW Standard Deviation 52.4 fL (36.4-46.3); Red Blood Count 4.48 M/uL (4.2-5.4); White Blood Count 10.87 K/uL (4.8-10.8)
[2021-07-04] MEDS: INSULIN ASPART PER UNIT SC SCH ×4 (08:16→20:51)
[2021-07-04] MEDS: INSULIN GLARGINE SOLOSTAR 100 UNITS/ML 3 ML PEN SQ SCH ×2 (08:16→20:51)
[2021-07-04] MEDS: PREGABALIN 100 MG CAP PO SCH ×3 (08:21→20:45)
[2021-07-04 08:46] LABS: BUN Creatinine Ratio 21.7 (10-20); Calcium 8.9 mg/dl (8.5-10.1); Creatinine Clr Calc Pharmacy 64.8 ml/min; Est GFR (African American) 96.6 ml/min; Est GFR (Non-African American) 83.4 ml/min; Magnesium 2.4 mg/dl (1.7-2.4); Potassium 3.5 mmol/L (3.5-5.1)
[2021-07-04] MEDS: LACTATED RINGER'S 1,000 ML IV SCH ×2 (09:31→20:54)
[2021-07-04 10:32] LABS: Estimated Average Glucose 243 mg/dl; Hemoglobin A1C 10.1 % (4.5-5.6)
--- NOTE | 2021-07-04 13:17 | Hospitalist Progress Note ---
Date of Service July 04, 2021 Assessment & Plan (1) Acute respiratory failure with hypoxia: Plan: - 88% on room air, now 98% on 2 L. No oxygen requirement at home, however during last admission (04/08) she had similar O2 sats, at that time she had PEs and treated with Heparin initially, transitioned to Xarelto, she continued to improve but still required O2 on d/c, so it was recommend she have a two-step test following discharge to evaluate need for home O2. This did happen, as ordered by her PCP, 6-minute walk test in his office for SPO2 of 87%. Unfortunately the oxygen component was not completed. -Patient does have compensated CO2 retention on VBG, suspect evening OHS/NATHANIEL. Will obtain overnight pulse ox, discuss potential CPAP with case management - BNP 25, HS troponin x2 < 14. - Flu/COVID/RSV pending. - vBG: pCO2 61, pH 7.41, pO2 37, bicarb 37, AG 7 (2) Hypokalemia: Plan: - 3.3 in ED, repleted Trend (3) Hypomagnesemia: Plan: - 1.1, pleated and svetlana to 2.4 (4) Leukocytosis: Plan: - WBC 11.93, lactate 1.5, procalcitonin normal - No obvious source of infection account for elevated WBC, she does have some erythema tenderness to palpation of the left and right great toe consistent ?paronychia (5) Coronary artery disease: Plan: - Stable, no acute needs today. - Continue Plavix, statin, beta-lisette. (6) Hypertension: Plan: - Continue HCTZ 25 mg BID, nebivolol 10 mg daily. - Clonidine transdermal patch on Sundays. (7) Diabetes mellitus type 2, uncontrolled: Plan: - Per PCP note from 04/25, patient supposed be taking 28 units twice daily, however she was only taking 24 units once daily then. States she has been witho ut her medications for the past week due to trouble picking them up from pharmacy, however states she has been taking her insulin regularly. Prior diabetes visit on 07/01, there is obvious issues concerning patient's insulin regimen. - We will continue with basal insulin 28 units twice daily with 10 units with meals, sliding scale insulin as needed. - Accu-Cheks ACHS. - HH/CC diet. - Continue pregabalin for neuropathy. A1c 10.1, uncontrolled Will require intensification of regimen. Recommend making sure all medications are filled, and close follow-up with regular BSG checks and intensification as needed to maintain goal BSG under 140 (8) Dyslipidemia: Plan: - Continue atorvastatin 40 mg at night. (9) GERD (gastroesophageal reflux disease): Plan: - Continue Protonix 40 mg BID + Pepcid 20 mg BID. (10) Asthma: Plan: - Continue albuterol Q6h PRN. (11) Cognitive impairment: Plan: - Has been concern in the past regarding patient's ability to take her medications appropriately at home, either secondary to dementia or psychiatric illness. - Patient states she has been without medications for the past week because they have been at the pharmacy, although no one has been able to pick them up for her. - Has a case mgr through [employer]; has aides every other day to assist with medications and daily activities. - Case Management consulted. (12) History of pulmonary embolus (PE): Plan: - Diagnosed on admission 04/08, DC'd on Xarelto, has not been on this for at least the past week due to not being able to get her medications from pharmacy. - CTA today: No acute pulmonary emboli identified although lower lobe subsegmental pulmonary arteries suboptimally assessed due to respiratory motion. 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 Restarted Xarelto, continue (13) Depression: Plan: Continue olanzapine and escitalopram. (14) Anxiety: (15) Restless leg syndrome: Plan: - Continue pregabalin, ropinirole. Plan: - Admit to Med/tele. - SCDs, Xarelot for DVT ppx. - Full Code. Admission and Anticipated Discharge Date Admission Date: July 03, 2021 Subjective Seen at bedside. Pleasant, no acute distress. Comfortable on 2 L of oxygen, denies shortness of breath, chest pain, chest pressure, abdominal pain, lightheadedness, dizziness, extremity pain. Oriented to name and place with no acute distress. Review of Systems Review of Systems: All systems reviewed & are unremarkable except as noted in Subjective Physical Exam Physical Exam: General: Alert and oriented to name and place. On 2 L nasal cannula. Nontoxic appearing HEENT: Atraumatic, normocephalic. Vision and hearing grossly intact Pulm: CTAB A&P. -wheezes, -rales, -rhonchi. Symmetrical chest rise. No increase in work of breathing. No respiratory distress. Cardiac: RRR, -mrg. Radial pulses intact and symmetrical. Abdominal: Nontender, nondistended, soft. BS present. Results & Data Results & Data ([facility]) Vital Signs (Past 12 Hours) Vital Signs Temp Pulse Pulse Resp BP BP Pulse Ox 07/04/21 11:48 36.3 C L 63 20 98/61 L 93 07/04/21 07:13 36.4 C L 72 18 133/74 95 07/04/21 02:38 36.6 C 60 20 101/66 94 PG Care Time/CCT Total # of Minutes Spent Total Time Spent with Patient: Total time spent is greater than 50% in coordination of care (as documented) at patient's floor/unit and/or counseling patient: Coding Level of Care Code 44395 Subseq Hosp Care Lvl 2 Diagnoses Acute respiratory failure with hypoxia J96.01 Hypokalemia E87.6 Hypomagnesemia E83.42 Leukocytosis D72.829 Coronary artery disease I25.10 Hypertension I10 Diabetes mellitus type 2, uncontrolled E11.65 Dyslipidemia E78.5 GERD (gastroesophageal reflux disease) K21.9 Asthma J45.909 Cognitive impairment R41.89 History of pulmonary embolus (PE) Z86.711 Depression F32.9 Anxiety F41.9 Restless leg syndrome G25.81
[2021-07-04] MEDS: ATORVASTATIN 40 MG TAB PO SCH (20:33)
[2021-07-04] MEDS: rOPINIRole HCL 0.25 MG TABLET PO SCH (20:43)
[2021-07-04] MEDS: ACETAMINOPHEN 325 MG TAB PO PRN (20:45)
[2021-07-05] MEDS: CHECK CLONIDINE PATCH PLACEMENT SCH ×3 (01:33→16:41)
[2021-07-05] MEDS: ESCITALOPRAM OXALATE 10 MG TAB PO SCH (08:02)
[2021-07-05] MEDS: OLANZapine 10 MG TAB PO SCH ×2 (08:02→19:59)
[2021-07-05] MEDS: hydroCHLOROthiazide 25 MG TAB PO SCH ×2 (08:02→17:20)
[2021-07-05] MEDS: FAMOTIDINE 20 MG TAB PO SCH ×2 (08:02→20:00)
[2021-07-05] MEDS: RIVAROXABAN 20 MG TAB PO SCH (08:02)
[2021-07-05] MEDS: MAGNESIUM OXIDE 400 MG TAB PO SCH (08:02)
[2021-07-05] MEDS: PANTOprazole 40 MG TAB PO SCH ×2 (08:02→19:59)
[2021-07-05] MEDS: CLOPIDOGREL BISULFATE 75 MG TAB PO SCH (08:02)
[2021-07-05] MEDS: METOPROLOL TARTRATE 50 MG TAB PO SCH ×2 (08:02→20:01)
[2021-07-05] MEDS: PREGABALIN 100 MG CAP PO SCH ×2 (08:05→20:00)
[2021-07-05 08:15] LABS: Basophils # (auto) 0.02 K/uL (0-0.2); Basophils % (auto) 0.2 %; Eosinophils # (auto) 0.14 K/uL (0-0.5); Eosinophils % (auto) 1.4 %; Hematocrit (blood only) 42.3 % (37-47); Hemoglobin 13.7 g/dL (12.0-16.0); Immature Granulocytes # (auto) 0.02 K/uL (0.00-0.02); Immature Granulocytes % (auto) 0.2 %; Lymphocytes # (auto) 3.47 K/uL (1.2-3.4); Lymphocytes % (auto) 34.5 %; Mean Corpuscular Hemoglobin 31.3 pg (25-34); Mean Corpuscular Hgb Conc 32.4 g/dL (32-36); Mean Corpuscular Volume 96.6 fL (80-100); Mean Platelet Volume 11.5 fL (7.4-10.4); Monocytes # (auto) 0.56 K/uL (0.11-0.59); Monocytes % (auto) 5.6 %; Neutrophils # (auto) 5.86 K/uL (1.4-6.5); Neutrophils % (auto) 58.1 %; Platelet Count 262 K/uL (130-400); RDW Coefficient of Variation 15.2 % (11.5-14.5); Red Blood Count 4.38 M/uL (4.2-5.4); White Blood Count 10.07 K/uL (4.8-10.8)
[2021-07-05 08:18] LABS: BUN Creatinine Ratio 22.4 (10-20); Calcium 8.6 mg/dl (8.5-10.1); Creatinine Clr Calc Pharmacy 58.8 ml/min; Est GFR (African American) 87.1 ml/min; Est GFR (Non-African American) 75.1 ml/min; Potassium 3.8 mmol/L (3.5-5.1)
[2021-07-05] MEDS: INSULIN ASPART PER UNIT SC SCH ×4 (08:40→20:01)
[2021-07-05] MEDS: INSULIN GLARGINE SOLOSTAR 100 UNITS/ML 3 ML PEN SQ SCH ×2 (08:41→20:00)
[2021-07-05] MEDS: LACTATED RINGER'S 1,000 ML IV SCH (09:54)
--- NOTE | 2021-07-05 17:55 | Hospitalist Progress Note ---
Date of Service July 05, 2021 Assessment & Plan (1) Acute respiratory failure with hypoxia: Plan: - 98% on 2 L. No oxygen requirement at home, however during last admission (04/08) she had similar O2 sats, at that time she had PEs and treated with Heparin initially, transitioned to Xarelto, she continued to improve but still required O2 on d/c, so it was recommend she have a two-step test following discharge to evaluate need for home O2. This did happen, as ordered by her PCP, 6-minute walk test in his office for SPO2 of 87%. Unfortunately the oxygen component was not completed. -Patient does have compensated CO2 retention on VBG, suspect evening OHS/NATHANIEL. - CTA: No acute pulmonary emboli identified although lower lobe subsegmental pulmonary arteries suboptimally assessed due to respiratory motion. 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 Cardiomegaly. Groundglass opacities suggestive of atelectasis. No consolidation to suggest pneumonia. Overnight pulse ox completed. Patient with rapid frequent desaturations on room air, and multiple desaturation events on 2 L. Given CO2 retention which improves and pulse ox desat events recommend patient utilize BiPAP nightly and up to 2 L oxygen daytime as needed. - BNP 25, HS troponin x2 < 14. 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 Did discuss with case management patient's home health agency [facility] will stop providing services this week and patient is not safe for completely independent care. She is active with [facility] for caregivers and receives services approximately 30 hours/week. prep manager/well service floor worker is working to find a home health agency to assist with medications and care. Patient is agreeable to short-term rehab before returning home, PT/OT is pending. (2) Hypokalemia: Plan: - 3.3 in ED, repleted Trend (3) Hypomagnesemia: Plan: - 1.1, pleated and svetlana to 2.4 (4) Leukocytosis: Plan: - WBC 11.93, lactate 1.5, procalcitonin normal - No obvious source of infection account for elevated WBC, she does have some erythema tenderness to palpation of the left and right great toe consistent ?paronychia (5) Coronary artery disease: Plan: - Stable, no acute needs today. - Continue Plavix, statin, beta-lisette. (6) Hypertension: Plan: - Continue HCTZ 25 mg BID, nebivolol 10 mg daily. - Clonidine transdermal patch on Sundays. (7) Diabetes mellitus type 2, uncontrolled: Plan: - Per PCP note from 04/25, patient supposed be taking 28 units twice daily, however she was only taking 24 units once daily then. States she has been without her medications for the past week due to trouble picking them up from pharmacy, however states she has been taking her insulin regularly. Prior diabetes visit on 07/01, there is obvious issues concerning patient's insulin regimen. -Patient is with morning fasting hyperglycemia and postprandial hyperglycemia today. Increased basal, slightly narrowed SSI parameters. - Accu-Cheks ACHS. - HH/CC diet. - Continue pregabalin for neuropathy. A1c 10.1, uncontrolled Will require simple regimen. Seen by primary special educator. Recommend Basaglar 28 once daily with breakfast and NovoLog 10 units 3 times daily with meals at discharge will need scripts at discharge Add SGLT2 as outpatient (8) Dyslipidemia: Plan: - Continue atorvastatin 40 mg at night. (9) GERD (gastroesophageal reflux disease): Plan: - Continue Protonix 40 mg BID + Pepcid 20 mg BID. (10) Asthma: Plan: - Continue albuterol Q6h PRN. (11) Cognitive impairment: Plan: - Has been concern in the past regarding patient's ability to take her medications appropriately at home, either secondary to dementia or psychiatric illness. - Patient states she has been without medications for the past week because they have been at the pharmacy, although no one has been able to pick them up for her. - Has a case therapist through [employer]; has aides every other day to assist with medications and daily activities. - Case Management consulted. (12) History of pulmonary embolus (PE): Plan: - Diagnosed on admission 04/08, DC'd on Xarelto, has not been on this for at least the past week due to not being able to get her medications from pharmacy. - CTA today: No acute pulmonary emboli identified although lower lobe subsegmental pulmonary arteries suboptimally assessed due to respiratory motion. 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 Restarted Xarelto, continue (13) Depression: Plan: Continue olanzapine and escitalopram. (14) Anxiety: (15) Restless leg syndrome: Plan: - Continue pregabalin, ropinirole. Plan: - Admit to Med/tele. - SCDs, Xarelot for DVT ppx. - Full Code. Admission and Anticipated Discharge Date Admission Date: July 03, 2021 Subjective Seen at bedside. Pleasant, no acute distress. Remains on 2 L of oxygen, comfortable. Denies any symptoms at bedside. Denies pain. Denies shortness of breath, difficulty breathing, chest pain, chest pressure, lightheadedness, dizziness, difficulty urine, abdominal pain. She does note her prior percolator operator is no longer available, and is normally home alone but with help from [employer]. Did discuss with case management patient's home health agency [facility] will stop providing services this week and patient is not safe for completely independent care. She is active with [facility] for caregivers and receives services approximately 30 hours/week. prep manager/well service floor worker is working to find a home health agency to assist with medications and care. Patient is agreeable to short-term rehab before returning home, PT/OT is pending. Review of Systems Review of Systems: All systems reviewed & are unremarkable except as noted in Subjective Physical Exam Physical Exam: General: Alert and oriented to name and place. On 2 L nasal cannula. Nontoxic appearing HEENT: Atraumatic, normocephalic. Vision and hearing grossly intact Pulm: CTAB A&P. -wheezes, -rales, -rhonchi. Symmetrical chest rise. No increase in work of breathing. No respiratory distress. Cardiac: RRR, -mrg. Radial pulses intact and symmetrical. Abdominal: Nontender, nondistended, soft. BS present. Results & Data Results & Data ([facility]) Vital Signs (Past 12 Hours) Vital Signs Temp Pulse Pulse Resp BP Pulse Ox 07/05/21 16:56 56 L 07/05/21 15:51 36.9 C 53 L 18 111/70 96 07/05/21 10:46 36.8 C 61 20 126/75 93 07/05/21 10:07 60 07/05/21 08:01 36.7 C 65 20 138/85 92 PG Care Time/CCT Total # of Minutes Spent Total Time Spent with Patient: Total time spent is greater than 50% in coordination of care (as documented) at patient's floor/unit and/or counseling patient: Coding Level of Care Code 86577 Subseq Hosp Care Lvl 2 Diagnoses Acute respiratory failure with hypoxia J96.01 Hypokalemia E87.6 Hypomagnesemia E83.42 Leukocytosis D72.829 Coronary artery disease I25.10 Hypertension I10 Diabetes mellitus type 2, uncontrolled E11.65 Dyslipidemia E78.5 GERD (gastroesophageal reflux disease) K21.9 Asthma J45.909 Cognitive impairment R41.89 History of pulmonary embolus (PE) Z86.711 Depression F32.9 Anxiety F41.9 Restless leg syndrome G25.81
[2021-07-05] MEDS: rOPINIRole HCL 0.25 MG TABLET PO SCH (19:59)
[2021-07-05] MEDS: ATORVASTATIN 40 MG TAB PO SCH (19:59)
[2021-07-05] MEDS: ACETAMINOPHEN 325 MG TAB PO PRN (22:23)
[2021-07-06] MEDS: CHECK CLONIDINE PATCH PLACEMENT SCH ×4 (00:13→23:58)
[2021-07-06] MEDS: ACETAMINOPHEN 325 MG TAB PO PRN ×2 (06:09→20:24)
[2021-07-06] MEDS: METOPROLOL TARTRATE 50 MG TAB PO SCH ×2 (07:45→20:24)
[2021-07-06] MEDS: ESCITALOPRAM OXALATE 10 MG TAB PO SCH (07:46)
[2021-07-06] MEDS: MAGNESIUM OXIDE 400 MG TAB PO SCH (07:46)
[2021-07-06] MEDS: PANTOprazole 40 MG TAB PO SCH ×2 (07:46→20:24)
[2021-07-06] MEDS: OLANZapine 10 MG TAB PO SCH ×2 (07:46→20:24)
[2021-07-06] MEDS: hydroCHLOROthiazide 25 MG TAB PO SCH ×2 (07:46→17:30)
[2021-07-06] MEDS: RIVAROXABAN 20 MG TAB PO SCH (07:46)
[2021-07-06] MEDS: CLOPIDOGREL BISULFATE 75 MG TAB PO SCH (07:46)
[2021-07-06] MEDS: FAMOTIDINE 20 MG TAB PO SCH ×2 (07:46→20:24)
[2021-07-06] MEDS: PREGABALIN 100 MG CAP PO SCH ×2 (07:48→20:29)
[2021-07-06] MEDS: INSULIN ASPART PER UNIT SC SCH ×4 (09:14→20:25)
[2021-07-06] MEDS: INSULIN GLARGINE SOLOSTAR 100 UNITS/ML 3 ML PEN SQ SCH ×2 (09:15→20:25)
[2021-07-06 09:24] LABS: Basophils # (auto) 0.01 K/uL (0-0.2); Basophils % (auto) 0.1 %; Eosinophils # (auto) 0.14 K/uL (0-0.5); Eosinophils % (auto) 1.3 %; Hematocrit (blood only) 42.1 % (37-47); Hemoglobin 13.4 g/dL (12.0-16.0); Immature Granulocytes # (auto) 0.03 K/uL (0.00-0.02); Immature Granulocytes % (auto) 0.3 %; Lymphocytes # (auto) 3.09 K/uL (1.2-3.4); Lymphocytes % (auto) 29.3 %; Mean Corpuscular Hemoglobin 30.1 pg (25-34); Mean Corpuscular Hgb Conc 31.8 g/dL (32-36); Mean Corpuscular Volume 94.6 fL (80-100); Mean Platelet Volume 11.3 fL (7.4-10.4); Monocytes # (auto) 0.57 K/uL (0.11-0.59); Monocytes % (auto) 5.4 %; Neutrophils # (auto) 6.72 K/uL (1.4-6.5); Neutrophils % (auto) 63.6 %; Platelet Count 278 K/uL (130-400); RDW Standard Deviation 52.1 fL (36.4-46.3); Red Blood Count 4.45 M/uL (4.2-5.4); White Blood Count 10.56 K/uL (4.8-10.8)
[2021-07-06 10:04] LABS: Calcium 8.6 mg/dl (8.5-10.1); Creatinine Clr Calc Pharmacy 60.1 ml/min; Est GFR (African American) 89.9 ml/min; Est GFR (Non-African American) 77.6 ml/min; Potassium 3.8 mmol/L (3.5-5.1)
--- NOTE | 2021-07-06 13:58 | Hospitalist Progress Note ---
Date of Service July 06, 2021 Assessment & Plan (1) Acute respiratory failure with hypoxia: Plan: - 98% on 2 L. No oxygen requirement at home, however during last admission (04/08) she had similar O2 sats, at that time she had PEs and treated with Heparin initially, transitioned to Xarelto, she continued to improve but still required O2 on d/c, so it was recommend she have a two-step test following discharge to evaluate need for home O2. This did happen, as ordered by her PCP, 6-minute walk test in his office for SPO2 of 87%. Unfortunately the oxygen component was not completed. -Patient does have compensated CO2 retention on VBG, suspect evening OHS/NATHANIEL. - CPAP qHS - CTA: No acute pulmonary emboli identified although lower lobe subsegmental pulmonary arteries suboptimally assessed due to respiratory motion. 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 Cardiomegaly. Groundglass opacities suggestive of atelectasis. No consolidation to suggest pneumonia. Overnight pulse ox completed. Patient with rapid frequent desaturations on room air, and multiple desaturation events on 2 L. Given CO2 retention which improves and pulse ox desat events recommend patient utilize PPV nightly and up to 2 L oxygen daytime as needed. - BNP 25, HS troponin x2 < 14. 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 Did discuss with case management patient's home health agency [facility] will stop providing services this week and patient is not safe for completely independent care. She is active with [employer] for caregivers and receives services approximately 30 hours/week. zone manager/flight service specialist is working to find a home health agency to assist with medications and care. - Agreeable to short-term rehab before returning home. PT/OT is pending. (2) Hypokalemia: Plan: - 3.3 in ED, repleted Normalized, 3.8 on 07/06 BMP daily (3) Hypomagnesemia: Plan: - 1.1, repleated and svetlana to 2.4 (4) Leukocytosis: Plan: - WBC 11.93, lactate 1.5, procalcitonin normal. WBC normalized (5) Coronary artery disease: Plan: - Stable, no acute needs today. - Continue Plavix, statin, beta-lisette. (6) Hypertension: Plan: - Continue HCTZ 25 mg BID, nebivolol 10 mg daily. - Clonidine transdermal patch on Sundays. (7) Diabetes mellitus type 2, uncontrolled: Plan: - Per PCP note from 04/25, patient supposed be taking 28 units twice daily, however she was only taking 24 units once daily then. States she has been without her medications for the past week due to trouble picking them up from pharmacy, however states she has been taking her insulin regularly. Prior diabetes visit on 07/01, there is obvious issues concerning patient's insulin regimen. -Patient is with morning fasting hyperglycemia and postprandial hyperglycemia today. Increased basal, slightly narrowed SSI parameters. - Accu-Cheks ACHS. - HH/CC diet. - Continue pregabalin for neuropathy. A1c 10.1, uncontrolled Will require simple regimen. Seen by breastfeeding educator. Recommended Basaglar 28 once daily with breakfast and NovoLog 10 units 3 times daily with meals at discharge will need scripts at discharge Hyperglycemic in evening with slight rise overnight continue to be hyperglycemic in a.m. Tightened SSI. Add SGLT2 as outpatient (8) Dyslipidemia: Plan: - Continue atorvastatin 40 mg at night. (9) GERD (gastroesophageal reflux disease): Plan: - Continue Protonix 40 mg BID + Pepcid 20 mg BID. (10) Asthma: Plan: - Continue albuterol Q6h PRN. (11) Cognitive impairment: Plan: - Has been concern in the past regarding patient's ability to take her medications appropriately at home, either secondary to dementia or psychiatric illness. - Patient states she has been without medications for the past week because they have been at the pharmacy, although no one has been able to pick them up for her. - Has a machine operator hop worker through [employer]; see above - Case Management consulted. (12) History of pulmonary embolus (PE): Plan: - Diagnosed on admission 04/08, DC'd on Xarelto, has not been on this for at least the past week due to not being able to get her medications from pharmacy. - CTA today: No acute pulmonary emboli identified although lower lobe subsegmental pulmonary arteries suboptimally assessed due to respiratory motion. 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 Restarted Xarelto on admission, continue (13) Depression: Plan: Continue olanzapine and escitalopram. (14) Anxiety: (15) Restless leg syndrome: Plan: - Continue pregabalin, ropinirole. Plan: - Admit to Med/tele. - SCDs, Xarelot for DVT ppx. - Full Code. Admission and Anticipated Discharge Date Admission Date: July 03, 2021 Subjective No clinical change, sitting up in no distress. No acute overnight events. Breathing unlabored. Pending PT/OT and case management set up looking into [place] services, will will not be able to be set up until Thursday. As noted agreeable to rehab prior to discharge home. Review of Systems Review of Systems: All systems reviewed & are unremarkable except as noted in Subjective Physical Exam Physical Exam: General: Alert and oriented to name and place. On 2 L nasal cannula. Nontoxic appearing HEENT: Atraumatic, normocephalic. Vision and hearing grossly intact Pulm: Symmetrical chest rise. No increase in work of breathing. No respiratory distress. Results & Data Results & Data ([facility]) Vital Signs (Past 12 Hours) Vital Signs Temp Pulse Pulse Resp BP BP Pulse Ox 07/06/21 10:44 36.9 C 66 17 101/67 93 07/06/21 09:38 59 L 07/06/21 07:31 36.6 C 61 16 131/74 94 07/06/21 03:39 36.5 C 62 16 155/74 H 94 PG Care Time/CCT Total # of Minutes Spent Total Time Spent with Patient: Total time spent is greater than 50% in coordination of care (as documented) at patient's floor/unit and/or counseling patient: Coding Level of Care Code 62731 Subseq Hosp Care Lvl 2 Diagnoses Acute respiratory failure with hypoxia J96.01 Hypokalemia E87.6 Hypomagnesemia E83.42 Leukocytosis D72.829 Coronary artery disease I25.10 Hypertension I10 Diabetes mellitus type 2, uncontrolled E11.65 Dyslipidemia E78.5 GERD (gastroesophageal reflux disease) K21.9 Asthma J45.909 Cognitive impairment R41.89 History of pulmonary embolus (PE) Z86.711 Depression F32.9 Anxiety F41.9 Restless leg syndrome G25.81
[2021-07-06] MEDS: rOPINIRole HCL 0.25 MG TABLET PO SCH (20:24)
[2021-07-06] MEDS: ATORVASTATIN 40 MG TAB PO SCH (20:24)
[2021-07-07 07:21] LABS: Basophils # (auto) 0.02 K/uL (0-0.2); Basophils % (auto) 0.2 %; Eosinophils # (auto) 0.18 K/uL (0-0.5); Hematocrit (blood only) 44.5 % (37-47); Hemoglobin 14.2 g/dL (12.0-16.0); Immature Granulocytes # (auto) 0.02 K/uL (0.00-0.02); Immature Granulocytes % (auto) 0.2 %; Lymphocytes # (auto) 3.56 K/uL (1.2-3.4); Lymphocytes % (auto) 39.7 %; Mean Corpuscular Hemoglobin 30.2 pg (25-34); Mean Corpuscular Hgb Conc 31.9 g/dL (32-36); Mean Corpuscular Volume 94.7 fL (80-100); Mean Platelet Volume 11.3 fL (7.4-10.4); Monocytes # (auto) 0.68 K/uL (0.11-0.59); Monocytes % (auto) 7.6 %; Neutrophils # (auto) 4.51 K/uL (1.4-6.5); Neutrophils % (auto) 50.3 %; Platelet Count 243 K/uL (130-400); RDW Coefficient of Variation 15.1 % (11.5-14.5); RDW Standard Deviation 52.6 fL (36.4-46.3); White Blood Count 8.97 K/uL (4.8-10.8)
[2021-07-07 07:51] LABS: BUN Creatinine Ratio 27.9 (10-20); Calcium 8.9 mg/dl (8.5-10.1); Creatinine Clr Calc Pharmacy 66.6 ml/min; Est GFR (African American) 97.1 ml/min; Est GFR (Non-African American) 83.8 ml/min; Potassium 3.8 mmol/L (3.5-5.1)
[2021-07-07] MEDS: INSULIN ASPART PER UNIT SC SCH ×4 (08:34→20:23)
[2021-07-07] MEDS: INSULIN GLARGINE SOLOSTAR 100 UNITS/ML 3 ML PEN SQ SCH ×2 (08:35→20:23)
[2021-07-07] MEDS: PREGABALIN 100 MG CAP PO SCH ×2 (08:37→20:03)
[2021-07-07] MEDS: CLOPIDOGREL BISULFATE 75 MG TAB PO SCH (08:38)
[2021-07-07] MEDS: hydroCHLOROthiazide 25 MG TAB PO SCH ×2 (08:38→17:45)
[2021-07-07] MEDS: MAGNESIUM OXIDE 400 MG TAB PO SCH (08:38)
[2021-07-07] MEDS: ESCITALOPRAM OXALATE 10 MG TAB PO SCH (08:38)
[2021-07-07] MEDS: RIVAROXABAN 20 MG TAB PO SCH (08:38)
[2021-07-07] MEDS: FAMOTIDINE 20 MG TAB PO SCH ×2 (08:38→20:01)
[2021-07-07] MEDS: PANTOprazole 40 MG TAB PO SCH ×2 (08:38→20:01)
[2021-07-07] MEDS: METOPROLOL TARTRATE 50 MG TAB PO SCH ×2 (08:38→20:01)
[2021-07-07] MEDS: OLANZapine 10 MG TAB PO SCH ×2 (08:38→20:01)
[2021-07-07] MEDS: cloNIDine HCL 0.3 MG/24 HR TRANSDERM SYS TD SCH (08:43)
[2021-07-07] MEDS: CHECK CLONIDINE PATCH PLACEMENT SCH ×2 (08:43→14:49)
[2021-07-07] MEDS ORDERED: PHARMACY GLYCEMIC MGMT CONSULT PRN (12:28)
--- NOTE | 2021-07-07 12:34 | Hospitalist Progress Note ---
Date of Service July 07, 2021 Assessment & Plan (1) Acute respiratory failure with hypoxia: Plan: - 98% on 2 L. No oxygen requirement at home, however during last admission (04/08) she had similar O2 sats, at that time she had PEs and treated with Heparin initially, transitioned to Xarelto, she continued to improve but still required O2 on d/c, so it was recommend she have a two-step test following discharge to evaluate need for home O2. This did happen, as ordered by her PCP, 6-minute walk test in his office for SPO2 of 87%. Unfortunately the oxygen component was not completed. -Patient does have compensated CO2 retention on VBG, suspect evening OHS/NATHANIEL. - CPAP qHS - CTA: No acute pulmonary emboli identified although lower lobe subsegmental pulmonary arteries suboptimally assessed due to respiratory motion. 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 Cardiomegaly. Groundglass opacities suggestive of atelectasis. No consolidation to suggest pneumonia. Overnight pulse ox completed. Patient with rapid frequent desaturations on room air, and multiple desaturation events on 2 L. Given CO2 retention which improves and pulse ox desat events recommend patient utilize PPV nightly and up to 2 L oxygen daytime as needed. - BNP 25, HS troponin x2 < 14. 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 Did discuss with case management patient's home health agency [facility] will stop providing services this week and patient is not safe for completely independent care. She is active with [employer] for caregivers and receives services approximately 30 hours/week. patient accounts manager/family services specialist is working to find a home health agency to assist with medications and care. - Agreeable to short-term rehab before returning home. PT remains pending, case management following as above. Will likely need home services restarted and arranged if to be discharged home, or treated care and rehab/SNF based on PT/OT evaluation and placement options. (2) Hypokalemia: Plan: - 3.3 in ED, repleted Normalized, BMP daily (3) Hypomagnesemia: Plan: - 1.1, repleated and svetlana to 2.4 (4) Leukocytosis: Plan: - WBC 11.93, lactate 1.5, procalcitonin normal. - WBC normalized Remains afebrile (5) Coronary artery disease: Plan: - Stable, no acute needs today. - Continue Plavix, statin, beta-lisette. (6) Hypertension: Plan: - Continue HCTZ 25 mg BID, nebivolol 10 mg daily. - Clonidine transdermal patch on Sundays. (7) Diabetes mellitus type 2, uncontrolled: Plan: - Per PCP note from 04/25, patient supposed be taking 28 units twice daily, however she was only taking 24 units once daily then. States she has been with out her medications for the past week due to trouble picking them up from pharmacy, however states she has been taking her insulin regularly. Prior diabetes visit on 07/01, there is obvious issues concerning patient's insulin regimen. -Patient is with morning fasting hyperglycemia and postprandial hyperglycemia today. Increased basal, slightly narrowed SSI parameters. - Accu-Cheks ACHS. - HH/CC diet. - Continue pregabalin for neuropathy. A1c 10.1, uncontrolled Will require simple regimen. Seen by health promotion educator. Recommended Basaglar 28 once daily with breakfast and NovoLog 10 units 3 times daily with meals at discharge will need scripts at discharge Fasting BSG improved with diet parameters, remains with postprandial highs. Pharmacy consulted for assistance in tightening parameters Recommend patient may benefit from SGLT2 as outpatient, and follow-up with PCP for this (8) Dyslipidemia: Plan: - Continue atorvastatin 40 mg at night. (9) GERD (gastroesophageal reflux disease): Plan: - Continue Protonix 40 mg BID + Pepcid 20 mg BID. (10) Asthma: Plan: - Continue albuterol Q6h PRN. (11) Cognitive impairment: Plan: - Has been concern in the past regarding patient's ability to take her medications appropriately at home, either secondary to dementia or psychiatric illness. - Patient states she has been without medications for the past week because they have been at the pharmacy, although no one has been able to pick them up for her. - Has a case checker through [employer]; see above - Case Management consulted. (12) History of pulmonary embolus (PE): Plan: - Diagnosed on admission 04/08, DC'd on Xarelto, has not been on this for at least the past week due to not being able to get her medications from pharmacy. - CTA today: No acute pulmonary emboli identified although lower lobe subs egmental pulmonary arteries suboptimally assessed due to respiratory motion. 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 Restarted Xarelto on admission, continue (13) Depression: Plan: Continue olanzapine and escitalopram. (14) Anxiety: (15) Restless leg syndrome: Plan: - Continue pregabalin, ropinirole. Plan: - Admit to Med/tele. - SCDs, Xarelot for DVT ppx. - Full Code. Admission and Anticipated Discharge Date Admission Date: July 03, 2021 Subjective Seen is bedside this morning. No fever, chills, sweats, difficulty breathing. Does have a history of right and left paronychia, right foot feels okay, left foot is a little tender. Otherwise no complaints. Notes her blood sugars have been high, reports that she has difficulty with blood sugars in the past with both being high and low. No lightheadedness, dizziness, abdominal pain this morning. Aware will have many phone calls made and assistance to arrange her care tomorrow once case management is able to discuss with various agencies to get her support at home versus rehab. Still pending physical therapy evaluation no other changes, comfortable with no questions/concerns at bedside Review of Systems Review of Systems: All systems reviewed & are unremarkable except as noted in Subjective Physical Exam Physical Exam: General: Alert and oriented to name and place. On 2 L nasal cannula. Nontoxic appearing HEENT: Atraumatic, normocephalic. Vision and hearing grossly intact Pulm: CTAB A&P. -wheezes, -rales, -rhonchi. Symmetrical chest rise. No increase in work of breathing. No respiratory distress. Cardiac: RRR, -mrg. Radial pulses intact and symmetrical. Abdominal: Nontender, nondistended, soft. BS present. Extremity: Right hallux with partially resected nail, no erythema/warmth/tenderness/discharge. Left hallux with partially resected nail, trace tenderness at lateral border but no overlying erythema/purulence/fluctuance/discharge. Results & Data Results & Data ([facility]) Vital Signs (Past 12 Hours) Vital Signs Temp Pulse Pulse Resp BP Pulse Ox 07/07/21 10:46 36.3 C L 62 19 113/70 95 07/07/21 09:25 56 L 07/07/21 06:38 36.6 C 60 16 119/61 93 07/07/21 03:36 36.5 C 57 L 16 161/73 H 96 PG Care Time/CCT Total # of Minutes Spent Total Time Spent with Patient: Total time spent is greater than 50% in coordination of care (as documented) at patient's floor/unit and/or counseling patient: Coding Level of Care Code 58443 Subseq Hosp Care Lvl 2 Diagnoses Acute respiratory failure with hypoxia J96.01 Hypokalemia E87.6 Hypomagnesemia E83.42 Leukocytosis D72.829 Coronary artery disease I25.10 Hypertension I10 Diabetes mellitus type 2, uncontrolled E11.65 Dyslipidemia E78.5 GERD (gastroesophageal reflux disease) K21.9 Asthma J45.909 Cognitive impairment R41.89 History of pulmonary embolus (PE) Z86.711 Depression F32.9 Anxiety F41.9 Restless leg syndrome G25.81
[2021-07-07] MEDS: ACETAMINOPHEN 325 MG TAB PO PRN ×2 (15:02→20:23)
[2021-07-07] MEDS: ATORVASTATIN 40 MG TAB PO SCH (20:01)
[2021-07-07] MEDS: rOPINIRole HCL 0.25 MG TABLET PO SCH (20:01)
[2021-07-08] MEDS: CHECK CLONIDINE PATCH PLACEMENT SCH ×3 (00:24→15:49)
[2021-07-08 07:47] LABS: BUN Creatinine Ratio 24.4 (10-20); Calcium 8.9 mg/dl (8.5-10.1); Creatinine Clr Calc Pharmacy 54.2 ml/min; Est GFR (African American) 79.4 ml/min; Est GFR (Non-African American) 68.5 ml/min; Potassium 3.7 mmol/L (3.5-5.1)
[2021-07-08] MEDS: PANTOprazole 40 MG TAB PO SCH (08:13)
[2021-07-08] MEDS: MAGNESIUM OXIDE 400 MG TAB PO SCH (08:13)
[2021-07-08] MEDS: hydroCHLOROthiazide 25 MG TAB PO SCH (08:13)
[2021-07-08] MEDS: RIVAROXABAN 20 MG TAB PO SCH (08:13)
[2021-07-08] MEDS: ESCITALOPRAM OXALATE 10 MG TAB PO SCH (08:14)
[2021-07-08] MEDS: FAMOTIDINE 20 MG TAB PO SCH (08:14)
[2021-07-08] MEDS: OLANZapine 10 MG TAB PO SCH (08:14)
[2021-07-08] MEDS: METOPROLOL TARTRATE 50 MG TAB PO SCH (08:15)
[2021-07-08] MEDS: INSULIN GLARGINE SOLOSTAR 100 UNITS/ML 3 ML PEN SQ SCH (08:15)
[2021-07-08] MEDS: CLOPIDOGREL BISULFATE 75 MG TAB PO SCH (08:15)
[2021-07-08] MEDS: INSULIN ASPART PER UNIT SC SCH ×2 (08:16→12:16)
[2021-07-08] MEDS: PREGABALIN 100 MG CAP PO SCH (08:18)
--- NOTE | 2021-07-08 12:21 | Pharmacy Report ---
Pharmacy Glycemic Short Note 2 - Date of Service July 08, 2021 - Glycemic Short BSG Results (Last 24 hours): 07/07/21 07/07/21 07/07/21 14:43 16:44 20:00 Glucose POC Glucose 73 179 H 158 H 07/08/21 07/08/21 07/08/21 06:36 07:31 11:37 Glucose 174 H POC Glucose 163 H 135 H OUTPATIENT ANTIDIABETIC REGIMEN: * Per patient: Basaglar 24 units HS, Novolog 10 units TID with meals (patient frequently misses basaglar/novolog doses on daily basis - per DM educator notes * Prescribed Basaglar 28 units BID, Novolog 10 units TID with meals * A1c ~10% ASSESSMENT: * Patient admitted with acute respiratory failure. Type 2 diabetic, noncompliance with home medications. See DM educator notes for more detailed background. * Patient requiring 80-100 total daily units of insulin over last several days. Pharmacy consulted last evening for glycemic management * Fasting BSG this AM 163 mg/dL - patient received total of 60 units of basal insulin yesterday, will continue same * BSGs improving more today, tightened CR with breakfast and loosened rest of day as lunch BSG typically elevated * Insulin received yesterday comparable to home insulin regimen (60 units total basal, received 10-15 units with meals of novolog) * Would recommend stressing the need for compliance of home regimen before titrating home insulin. Would encourage patient is self monitoring blood sugars as well. PLAN FOR INPATIENT GLYCEMIC CONTROL: * Hold outpatient oral diabetes medications * Basal insulin * Lantus 30 units SQ BID * Bolus insulin * NovoLog per scale ACHS or Q6hrs while NPO * Goal Range: Low 110 mg/dL - High 140 mg/dL * Correction Factor: 20 mg/dL/unit ( breakfast CF ~15) * Nutritional / Prandial insulin per carb ratio of 1 unit per 9 grams CHO consumed (breakfast CR ~5)
--- NOTE | 2021-07-08 13:06 | Hospitalist Progress Note ---
Date of Service July 08, 2021 Assessment & Plan (1) Chronic respiratory failure: Plan: - 98% on 2 L. No oxygen requirement at home, however during last admission (04/08) she had similar O2 sats, at that time she had PEs and treated with Heparin initially, transitioned to Xarelto, she continued to improve but still required O2 on d/c, so it was recommend she have a two-step test following discharge to evaluate need for home O2. This did happen, as ordered by her PCP, 6-minute walk test in his office for SPO2 of 87%. Unfortunately the oxygen component was not completed. -Patient does have compensated CO2 retention on VBG, suspect evening OHS/NATHANIEL differential includes residual hypoxia from history of pulmonary embolism - CPAP qHS - CTA: No acute pulmonary emboli identified although lower lobe subsegmental pulmonary arteries suboptimally assessed due to respiratory motion. 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 Cardiomegaly. Groundglass opacities suggestive of atelectasis. No consolidation to suggest pneumonia. Overnight pulse ox completed. Patient with rapid frequent desaturations on room air, and multiple desaturation events on 2 L. Given CO2 retention which improves and pulse ox desat events recommend patient utilize PPV nightly and up to 2 L oxygen daytime as needed. - BNP 25, HS troponin x2 < 14. 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 Did discuss with case management patient's home health agency [facility] will stop providing services this week and patient is not safe for completely independent care. She is active with [employer] for caregivers and receives services approximately 30 hours/week. brand communications manager/environmental field services technician is working to find a home health agency to assist with medications and care. - Agreeable to short-term rehab before returning home. PT remains pending, case management following as above. Discharge home with additional services for ID versus rehab/SNF pending, case management assisting. Is medically stable to leave the hospital at this time (2) Hypokalemia: Plan: - 3.3 in ED, repleted Normalized, BMP daily (3) Diabetes mellitus type 2, uncontrolled: Plan: - Per PCP note from 04/25, patient supposed be taking 28 units twice daily, however she was only taking 24 units once daily then. States she has been without her medications for the past week due to trouble picking them up from pharmacy, however states she has been taking her insulin regularly. Prior diabetes visit on 07/01, there is obvious issues concerning patient's insulin regimen. -Patient is with morning fasting hyperglycemia and postprandial hyperglycemia today. Increased basal, slightly narrowed SSI parameters. - Accu-Cheks ACHS. - HH/CC diet. - Continue pregabalin for neuropathy. A1c 10.1, uncontrolled Will require simple regimen. Seen by tobacco prevention health educator. Recommended Basaglar 28 once daily with breakfast and NovoLog 10 units 3 times daily with meals at discharge will need scripts at discharge, may adjust slightly based on operative requirements at discharge Fasting BSG improved with diet parameters, remains with postprandial highs. Pharmacy consulted for assistance in tightening parameters appreciate recommendations and adjustments Recommend patient may benefit from SGLT2 as outpatient, and follow-up with PCP for this (4) History of pulmonary embolus (PE): Plan: - Diagnosed on admission 04/08, DC'd on Xarelto, has not been on this for at least the past week due to not being able to get her medications from pharmacy. - CTA today: No acute pulmonary emboli identified although lower lobe subsegmental pulmonary arteries suboptimally assessed due to respiratory motion. 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 Reviewed patient records and prior history. Unclear whether her PEs were provoked versus unprovoked, recommended that she continue anticoagulation for at least 6 months with reassessment for total duration of anticoagulation at that time. This was discussed with patient, and Xarelto is continued at this time. (5) Hypomagnesemia: Plan: - 1.1, repleated and svetlana to 2.4 (6) Leukocytosis: Plan: - WBC 11.93, lactate 1.5, procalcitonin normal. - WBC normalized Remains afebrile (7) Coronary artery disease: Plan: - Stable, no acute needs today. - Continue Plavix, statin, beta-lisette. (8) Hypertension: Plan: - Continue HCTZ 25 mg BID, nebivolol 10 mg daily. - Clonidine transdermal patch on Sundays. (9) Dyslipidemia: Plan: - Continue atorvastatin 40 mg at night. (10) GERD (gastroesophageal reflux disease): Plan: - Continue Protonix 40 mg BID + Pepcid 20 mg BID. (11) Asthma: Plan: - Continue albuterol Q6h PRN. (12) Cognitive impairment: Plan: - Has been concern in the past regarding patient's ability to take her medications appropriately at home, either secondary to dementia or psychiatric illness. - Patient states she has been without medications for the past week because they have been at the pharmacy, although no one has been able to pick them up for her. - Has a patient case manager through [employer]; see above - Case Management consulted. (13) Depression: Plan: Continue olanzapine and escitalopram. (14) Anxiety: (15) Restless leg syndrome: Plan: - Continue pregabalin, ropinirole. Plan: - Admit to Med/tele. - SCDs, Xarelot for DVT ppx. - Full Code. Admission and Anticipated Discharge Date Admission Date: July 03, 2021 Subjective Seen at bedside this morning. Reports she was a little concerned by low blood sugar this morning, but otherwise feels well. No fevers, chills, sweats, chest pain, chest pressure, lightheadedness, dizziness today. She feels well rested. Feels very to get out of the hospital, is aware that is awaiting some placement logistics. Is curious about what she should do about her blood thinner, discussed with her recent PEs this has been restarted. Did note that her repeat CTA did not show pulmonary embolism at the same location, but the subsegmental surrounding areas were not able to be well visualized\. Additionally outpatient records were reviewed and given that her initial clots were unclear whether they were provoked versus not provoked was recommended that anticoagulation be continued for at least 6 months (through September 2021) ismael that forreason her anticoagulation has been continued with follow-up to her outpatient provider. o other questions or concerns at time of visit Review of Systems Review of Systems: All systems reviewed & are unremarkable except as noted in Subjective Physical Exam Physical Exam: General: Alert and oriented to name and place. On 2 L nasal cannula. Nontoxic appearing HEENT: Atraumatic, normocephalic. Vision and hearing grossly intact Pulm: CTAB A&P. -wheezes, -rales, -rhonchi. Symmetrical chest rise. No increase in work of breathing. No respiratory distress. Cardiac: RRR, soft systolic murmur. Radial pulses intact and symmetrical. Abdominal: Nontender, nondistended, soft. BS present. Extremity: Intact, atraumatic. Sensation soft touch intact in hands and feet without asymmetry Results & Data Results & Data ([facility]) Vital Signs (Past 12 Hours) Vital Signs Temp Pulse Pulse Resp BP Pulse Ox 07/08/21 07:26 59 L 07/08/21 06:34 36.9 C 62 16 119/73 93 07/08/21 03:03 36.6 C 54 L 18 122/70 94 PG Care Time/CCT Total # of Minutes Spent Total Time Spent with Patient: Total time spent is greater than 50% in coordination of care (as documented) at patient's floor/unit and/or counseling patient: Coding Level of Care Code 73251 Subseq Hosp Care Lvl 2 Diagnoses Hypokalemia E87.6 Hypomagnesemia E83.42 Leukocytosis D72.829 Coronary artery disease I25.10 Hypertension I10 Diabetes mellitus type 2, uncontrolled E11.65 Dyslipidemia E78.5 GERD (gastroesophageal reflux disease) K21.9 Asthma J45.909 Cognitive impairment R41.89 History of pulmonary embolus (PE) Z86.711 Depression F32.9 Anxiety F41.9 Restless leg syndrome G25.81 Chronic respiratory failure J96.10
[2021-07-08] MEDS: ACETAMINOPHEN 325 MG TAB PO PRN (13:30)
--- NOTE | 2021-07-08 13:48 | Discharge Summary ---
Date of Service July 08, 2021 Admission HPI Per Admitting Provider Ms. Mccabe is a 76-year-old female with a past medical history significant for cognitive decline, CAD, asthma, DM2 on insulin therapy, HTN, HLD, GERD, restless legs syndrome, anxiety, depression who presented to the ED today at the suggestion of her nursing home assistant due to elevated blood sugars.Per patient, her reading today was greater than 400 on the machine, therefore EMS was called by her nursing home assistant for evaluation.Patient states she has been feeling woozy at home on and off for the past few weeks, but has had no falls and otherwise without complaints today. She occasionally feels short of breath after activity, but reports this has been ongoing for several months. She has ingrown toe nails on both great toes, she states they are red and have been painful for some time, no acute change. Without fever/chills, pain, weakness, chest pain, palpitations, cough, acute SOB, abdominal pain, nausea, vomiting, diarrhea, constipation, dysuria, increased frequency/urgency, or hematuria. Patient does have some degree of cognitive impairment, but seems to be a somewhat reliable historian. Her nursing home assistant was not present at the time of my visit. Of note, per her report, she has been without most or possibly all medications for at least a week because they have been ready for pickers material handlers at pharmacy, but she has not had anyone available to pick them up. In ED, she is SPO2 88% on room air, 98% on 2L NC, all other vital signs within normal limits and stable. Labs significant for WBC 11.93, potassium 3.3, magnesium 1.1, glucose 275. CXR did not show acute cardiopulmonary disease. CT chest showed no acute pulmonary emboli identified although lower lobe subsegmental pulmonary arteries suboptimally assessed due to respiratory motion. 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 Cardiomegaly. Groundglass opacities suggestive of atelectasis. No consolidation to suggest pneumonia. CT head did not identify acute intracranial findings. No change in appearance of the brain. Principal Diagnosis Hyperglycemia Chronic Respiratory Failure Discharge Exam General: Alert and oriented to name and place. On 2 L nasal cannula. Nontoxic appearing HEENT: Atraumatic, normocephalic. Vision and hearing grossly intact Pulm: CTAB A&P. -wheezes, -rales, -rhonchi. Symmetrical chest rise. No increase in work of breathing. No respiratory distress. Cardiac: RRR, soft systolic murmur. Radial pulses intact and symmetrical. Abdominal: Nontender, nondistended, soft. BS present. Extremity: Intact, atraumatic. Sensation soft touch intact in hands and feet without asymmetry Discharge Data Allergies Allergy/AdvReac Type Severity Reaction Status Date / Time ceftriaxone Allergy Unknown PARESTHESIA Verified 07/03/21 15:28 amoxicillin AdvReac Mild Gastrointestinal Verified 07/03/21 15:28 Upset aspirin AdvReac Mild Gastrointestinal Verified 07/03/21 15:28 Upset clavulanic acid AdvReac Mild Gastrointestinal Verified 07/03/21 15:28 Upset codeine AdvReac Mild INTOLERANCE Verified 07/03/21 15:28 STERIODS Allergy Severe RIGHT Uncoded 07/03/21 15:28 SIDED PARALYSIS Consultations 07/03/21 18:02 ED Decision to Admit Stat Ordered Studies 07/03/21 16:09 CT angio chest PE protocol Stat CT head/brain wo con Stat Hospital Course (1) Chronic respiratory failure: To Do As Outpatient: 1. Continue oxygen 2L daytime PRN for SPO2>90%, and CPAP qHS. Recheck BMP in 1 week 2. Continue Xarelto for at least 6 months total duration 3. Glycemic followup with PCP, recommend +SGLT2 as outpatient. Outpatient insulin recommendations based on inpatient requirements are basaglar 30u daily and Novolog 10units TID with meals - 98% on 2 L. No oxygen requirement at home, however during last admission (04/08) she had similar O2 sats, at that time she had PEs and treated with Heparin initially, transitioned to Xarelto, she continued to improve but still required O2 on d/c, so it was recommend she have a two-step test following discharge to evaluate need for home O2. This did happen, as ordered by her PCP, 6-minute walk test in his office for SPO2 of 87%. Unfortunately the oxygen component was not completed. -Patient does have compensated CO2 retention on VBG, suspect evening OHS/NATHANIEL differential includes residual hypoxia from history of pulmonary embolism - CPAP qHS - CTA: No acute pulmonary emboli identified although lower lobe subsegmental pulmonary arteries suboptimally assessed due to respiratory motion. 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 Cardiomegaly. Groundglass opacities suggestive of atelectasis. No consolidation to suggest pneumonia. Overnight pulse ox completed. Patient with rapid frequent desaturations on room air, and multiple desaturation events on 2 L. Given CO2 retention which improves and pulse ox desat events recommend patient utilize PPV nightly and up to 2 L oxygen daytime as needed. - BNP 25, HS troponin x2 < 14. 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 Did discuss with case management patient's home health agency [facility] will stop providing services this week and patient is not safe for completely independent care. She is active with [facility] for caregivers and receives services appr oximately 30 hours/week. personnel manager/business services director is working to find a home health agency to assist with medications and care. - [facility]charged [facility] for [facility]hab and additional care (2) Hypokalemia: - 3.3 in ED, repleted Normalized, BMP daily (3) Diabetes mellitus type 2, uncontrolled: - Per PCP note from 04/25, patient supposed be taking 28 units twice daily, however she was only taking 24 units once daily then. States she has been without her medications for the past week due to trouble picking them up from pharmacy, however states she has been taking her insulin regularly. Prior diabetes visit on 07/01, there is obvious issues concerning patient's insulin regimen. -Patient is with morning fasting hyperglycemia and postprandial hyperglycemia today. Increased basal, slightly narrowed SSI parameters. - Accu-Cheks ACHS. - HH/CC diet. - Continue pregabalin for neuropathy. A1c 10.1, uncontrolled Will require simple regimen. Seen by nurse educator. Recommended Basaglar 28 once daily with breakfast and NovoLog 10 units 3 times daily with meals at discharge will need scripts at discharge Recommend patient may benefit from SGLT2 as outpatient, and follow-up with PCP for this (4) History of pulmonary embolus (PE): - Diagnosed on admission 04/08, DC'd on Xarelto, has not been on this for at least the past week due to not being able to get her medications from pharmacy. - CTA today: No acute pulmonary emboli identified although lower lobe subsegmental pulmonary arteries suboptimally assessed due to respiratory motion. 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 Reviewed patient records and prior history. Unclear whether her PEs were provoked versus unprovoked, recommended that she continue anticoagulation for at least 6 months with reassessment for total duration of anticoagulation at that time. This was discussed with patient, and Xarelto is continued at this time. (5) Hypomagnesemia: - 1.1, repleated and svetlana to 2.4 (6) Leukocytosis: - WBC 11.93, lactate 1.5, procalcitonin normal. - WBC normalized Remains afebrile (7) Coronary artery disease: - Stable, no acute needs today. - Continue Plavix, statin, beta-lisette. (8) Hypertension: - Continue HCTZ 25 mg BID, nebivolol 10 mg daily. - Clonidine transdermal patch on Sundays. (9) Dyslipidemia: - Continue atorvastatin 40 mg at night. (10) GERD (gastroesophageal reflux disease): - Continue Protonix 40 mg BID + Pepcid 20 mg BID. (11) Asthma: - Continue albuterol Q6h PRN. (12) Cognitive impairment: - Has been concern in the past regarding patient's ability to take her medications appropriately at home, either secondary to dementia or psychiatric illness. - Patient states she has been without medications for the past week because they have been at the pharmacy, although no one has been able to pick them up for her. - Has a lining caser through [employer]; see above - Case Management consulted. (13) Depression: Continue olanzapine and escitalopram. (14) Anxiety: (15) Restless leg syndrome: - Continue pregabalin, ropinirole. - Admit to Med/tele. - SCDs, Xarelot for DVT ppx. - Full Code. Total Time Total Time Spent Total Time Spent (In Minutes): Time spend day of discharge 55 minutes including direct patient care, documentation, review of labs and images, and coordination of care. Discharge Plan Discharge Items Patient Disposition: Transfer Inpatient Rehab Fac Reason For Visit: HYPERGLYCEMIA Discharge Diagnosis: Hyperglycemia Chronic respiratory failure Activity: Per Instructions section Non-emergency contact: Primary Care Provider Call non-emergency contact if: you have any medication questions and you have a fever Follow-up/Referrals: Lewis Villa III, CRNP [Primary Care Provider] - Diet: Carb Consistent or DM2 Addtl Attending Provider Instructions: You are seen in the hospital for hyperglycemia and concern that you are not able to fill your medications at home due to a lapse in services from your prior caregivers. During admission you are blood sugar returned to normal with medication adjustments and outpatient recommendations have been made for medications as noted below. Your Eliquis, your blood thinner, has been resumed and you should continue this for at least 6 months due to your history of blood clots. You are being discharged to inpatient rehab for additional care. Please continue to take Basaglar 28 units twice daily Please take NovoLog 10 units 3 times daily with meals Please check your blood sugars as instructed, and call your primary care provider if you have more than 2 measurements over 200, or any measurement over 300 If you develop any new or worsening symptoms including fever, chills, sweats, chest pain, chest pressure, difficulty breathing, uncontrolled nausea/vomiting, rash, wheezing, passing out or nearly passing out, bleeding, black/bloody bowel movements, or other new or concerning symptoms please call your primary care physician, or call 911 for re-evaluation in the emergency department if you are very concerned. Pending Studies at Discharge: No Stand-Alone Forms: My [facility] Skilled Items Patient informed of condition?: Yes DNR: No Discharge Level of Care: Acute rehab Communicable Disease: No Discharge Prognosis: Stable Lines: None Urinary Catheter: No Medications and DC Order Prescriptions: Continued albuterol sulfate [Ventolin HFA] 90 mcg/actuation HFA aerosol inhaler 1 puff INHALATION Q6H PRN (Reason: Shortness Of Breath Or Wheezing) Qty: 6.7 RF: 1 Hold Instructions: pt has not picked up from pharm in over year atorvastatin [Lipitor] 40 mg tablet 40 mg PO HS Qty: 90 RF: 1 Hold Instructions: pt never picked up from pharmacy clopidogrel [Plavix] 75 mg tablet 75 mg PO QAM Qty: 90 RF: 2 Hold Instructions: pt has never picked up from pharmacy escitalopram oxalate 10 mg tablet 10 mg PO QAM Qty: 90 RF: 1 famotidine 20 mg tablet 20 mg PO BID Qty: 60 RF: 5 Hold Instructions: last dispensed 12/2019, 90 days magnesium 250 mg tablet 250 mg PO QAM Qty: 90 RF: 1 Bystolic 10 mg tablet 10 mg PO QAM Qty: 90 RF: 1 Hold Instructions: last dispensed 12/2019, 90 day olanzapine 10 mg tablet 10 mg PO BID Qty: 180 RF: 1 pantoprazole 40 mg tablet,delayed release (DR/EC) 40 mg PO BID Qty: 180 RF: 3 Hold Instructions: last dispensed 12/2019 ropinirole 0.25 mg tablet 0.25 mg PO HS Qty: 30 RF: 5 hydrochlorothiazide 25 mg tablet 25 mg PO BID Qty: 180 RF: 1 rivaroxaban 20 mg tablet 20 mg PO DAILY Qty: 90 RF: 1 pregabalin 100 mg capsule 100 mg PO BID Qty: 60 RF: 0 clonidine 0.3 mg/24 hr patch weekly 1 patch transdermal WK RF: 0 nystatin 100,000 unit/gram cream 1 applic topical BID PRN (Reason: Unknown) RF: 0 (DME) OneTouch Verio test strips Strip See Rx Instructions .Route Qty: 300 RF: 3 insulin aspart U-100 [Novolog Flexpen U-100 Insulin] 100 unit/mL (3 mL) insulin pen 10 unit SQ TID 30 Days Qty: 9 RF: 5 Basaglar KwikPen U-100 Insulin 100 unit/mL (3 mL) insulin pen 28 unit SQ BID 90 Days Qty: 50.4 RF: 5 (DME) pen needle, diabetic [BD Ultra-Fine Ashley Pen Needle] 32 gauge x 5/32" needle See Rx Instructions .Route Qty: 400 RF: 3 (DME) lancets [OneTouch Delica Plus Lancet] 33 gauge misc See Rx Instructions .Route Qty: 300 RF: 3 multivitamin Tablet 1 tab PO QAM RF: 0 Discharge Orders: Discharge Order (Routine); Ordered 07/08/21 Ordered By: Rubén Graves Admission Data Admit Date/Time: 07/03/21 19:17 Attending Provider: Rubén Graves Admit Provider: Rubén Graves Primary Care Provider: Lewis Villa III Other Providers: Rubén Graves ; [facility] Coding Level of Care Code D/C DAY MANAGEMENT >30 MINS Diagnoses Chronic respiratory failure J96.10 Hypokalemia E87.6 Diabetes mellitus type 2, uncontrolled E11.65 History of pulmonary embolus (PE) Z86.711 Hypomagnesemia E83.42 Leukocytosis D72.829 Coronary artery disease I25.10 Hypertension I10 Dyslipidemia E78.5 GERD (gastroesophageal reflux disease) K21.9 Asthma J45.909 Cognitive impairment R41.89 Depression F32.9 Anxiety F41.9 Restless leg syndrome G25.81
== END 2021-07-08 17:19 | DRG 206 ==
LOC: ED 14:45 → 2N 19:17